=== PATIENT | female | born 1960 | race Caucasian/White ===

== ENCOUNTER 2019-08-16 08:31 | Outpatient (CLI) | payer BC, SELFPAY ==
--- NOTE | 2019-08-16 08:39 | MM_ITS ---
WS: [id number] BILATERAL SCREENING DIGITAL MAMMOGRAM WITH CAD HISTORY: SCREENING COMPARISON: 05/26/2018 and 05/16/2017 Bilateral CC and MLO views submitted. Computer aided detection analyzed. Breast composition: There are scattered areas of fibroglandular density. No suspicious masses, microc alcifications or architectural distortion. Benign calcification in the inferior medial LEFT breast. MM/[id number] IMPRESSION: BI-RADS: 2-Benign FOLLOW UP: 1 Year Follow-up
== END 2019-08-16 08:32 | disposition home or self-care (01) ==
LOC: RADSHAW 08:37
PROVIDERS: PCP Family Medicine; Visit Provider Family Medicine
DX: Z12.31 Encounter for screening mammogram for malignant neoplasm of breast (principal)
CPT/HCPCS: 77067

== ENCOUNTER 2019-11-07 09:38 | Outpatient (CLI) | payer OTHER, BC, SELFPAY ==
--- NOTE | 2019-11-07 09:56 | XR_ITS ---
WS: [id number] RIGHT SHOULDER: 3 VIEW(S) TECHNIQUE: Internal and external rotation with Y view. HISTORY: PAIN IN SHOULDER COMPARISON: None available. No fracture or dislocation or soft tissue abnormality. Large calcific or osseous density adjacent to the medial proximal humerus measures 2.3 x 1.3 cm. This may be contiguous with an osteophyte from the medial inferior humeral head. Differential includes lo ose body in the joint. There is osteophytic ridging and hypertrophic bone formation around the david l head. Mild narrowing of the glenohumeral joint. Mild subchondral cystic changes in the distal clavi will. XR/XR shoulder RT min 2V* [id number] IMPRESSION: 1. Large osteophyte versus loose body in the axillary pouch measuring 2.3 x 1. 3 cm. 2. Mild hypertrophic bone formation over the humeral head with mild narrowing of the glenohumeral joint.
--- NOTE | 2019-11-07 09:56 | XR_ITS ---
WS: [id number] LEFT SHOULDER: 3 VIEW(S) TECHNIQUE: Internal and external rotation with Y view. HISTORY: PAIN IN SHOULDER COMPARISON: None available. No fracture or dislocation or soft tissue abnormality. Moderate narrowing of the glenohumeral joint. There is a large osteophyte from the medial inferior hu meral head measuring 2.6 x 1.3 cm. Osteophytic ridging around the humeral head with osteopenia. Mild narrowing of the AC joint. XR/XR shoulder LT min 2V* [id number] IMPRESSION: Significant hypertrophic bone formation involving the medial humeral head with narrowing of the glenohumeral joint.
== END 2019-11-07 09:39 | disposition home or self-care (01) ==
PROVIDERS: PCP Family Medicine; Visit Provider Family Medicine
DX: M25.511 Pain in right shoulder (principal); M25.512 Pain in left shoulder
CPT/HCPCS: 73030

== ENCOUNTER 2020-09-17 14:20 | Outpatient (CLI) | payer BC, SELFPAY ==
--- NOTE | 2020-09-17 14:28 | MM_ITS ---
WS: [id number] SCREENING DIGITAL MAMMOGRAM WITH CAD HISTORY: SCREENING COMPARISON: 08/16/2019 and 05/26/2018 Bilateral CC and MLO views submitted. Computer aided detection analyzed. Breast composition: There are scattered areas of fibroglandular density. No suspicious masses, microc alcifications or architectural distortion. Benign calcifications LEFT breast. MM/[place] [id number] IMPRESSION: BI-RADS: 2-Benign FOLLOW UP: 1 Year Follow-up
== END 2020-09-17 14:21 | disposition home or self-care (01) ==
LOC: RADSHAW 14:26
PROVIDERS: PCP Family Medicine; Visit Provider Family Medicine
DX: Z12.31 Encounter for screening mammogram for malignant neoplasm of breast (principal)
CPT/HCPCS: 77067

== ENCOUNTER 2021-12-28 09:44 | Outpatient (CLI) | payer MEDICARE, SELFPAY ==
--- NOTE | 2021-12-28 09:58 | MM_ITS ---
WS: [id number] BILATERAL SCREENING DIGITAL TOMOSYNTHESIS MAMMOGRAM WITH CAD HISTORY: SCREEN COMPARISON: 09/17/2020, 08/16/2019, 05/10/2016 Bilateral CC and MLO views with tomosynthesis and synthetic mammography submitted. Computer aided det ection analyzed. Breast composition: There are scattered areas of fibroglandular density. No suspicious masses, microc alcifications or architectural distortion. Long-term stability of a nodule posterior to the RIGHT nip ple. MM/[place] [id number] IMPRESSION: BI-RADS: 2-Benign FOLLOW UP: 1 Year Follow-up
== END 2021-12-28 09:45 | disposition home or self-care (01) ==
LOC: RAD 09:45
PROVIDERS: PCP Family Medicine; Visit Provider Family Medicine
DX: Z12.31 Encounter for screening mammogram for malignant neoplasm of breast (principal)
CPT/HCPCS: 77063; 77067

== ENCOUNTER → 2022-04-28 13:04 | Outpatient (BNVA) | payer MEDICARE, SELFPAY | PROVIDERS: PCP Family Medicine; Visit Provider Orthopaedic Surgery | DX: M19.011 Primary osteoarthritis, right shoulder (principal); M19.012 Primary osteoarthritis, left shoulder; G56.02 Carpal tunnel syndrome, left upper limb | CPT/HCPCS: 73030; 99214 ==

== ENCOUNTER 2022-05-25 06:12 | Outpatient (CLI) | payer MEDICARE, SELFPAY ==
--- NOTE | 2022-05-25 06:30 | CT_ITS ---
WS: [id number] CT LEFT SHOULDER, NONCONTRAST, 3-D. HISTORY: M19.012 - Primary osteoarthritis, left shoulder Technique: All CT scans at [facility] use at least one of these dose optimization techniques: automated exposure control; mA and/or kV adjustment per patient size (includes targeted exams where dose is matched to clinical indication); or iterative reconstruction. DLP: 270.63 mGy.cm COMPARISON: 06/24/2014 and radiograph 04/28/2022 Severe glenohumeral joint space narrowing with osteophytic ridging. Hypertrophic bone formation is si gnificant surrounding the humeral head with a lesser component at the glenoid. Subchondral cystic denisa nges involve the glenoid and the humeral head. There is an osseous loose body measuring 13 mm adjacen t to the coracoid process. No fractures. Mild AC joint narrowing. No fractures or dislocation. The visualized ribs are normal. Mild supraspinatus muscle atrophy. Visualized LEFT lung is clear. CT/CT shoulder LT wo con* [id number] IMPRESSION: 1. Severe glenohumeral joint arthritis with marked osteophytic ridging. 2. 13 mm loose body adjacent to the coracoid process. 3. Mild atrophy supraspinatus muscle.
== END 2022-05-25 06:13 | disposition home or self-care (01) ==
LOC: RAD 06:16
PROVIDERS: PCP Family Medicine; Visit Provider Orthopaedic Surgery
DX: M19.012 Primary osteoarthritis, left shoulder (principal); M62.512 Muscle wasting and atrophy, not elsewhere classified, left shoulder
CPT/HCPCS: 73200

== ENCOUNTER 2022-06-14 09:39 | Outpatient (CLI) | payer MEDICARE, SELFPAY | END 2022-06-14 09:40 | disposition home or self-care (01) | LOC: RT 06-24 12:08 | PROVIDERS: PCP Family Medicine; Visit Provider Orthopaedic Surgery | DX: Z13.6 Encounter for screening for cardiovascular disorders (principal) | CPT/HCPCS: 93005 ==

== ENCOUNTER 2022-06-21 14:39 | Observation (INO) | payer MEDICARE, SELFPAY ==
--- NOTE | 2022-06-14 09:39 | ECG_ITS ---
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 Measurements Intervals [place] Rate: 71 P: 9 NM: 195 QRS: 45 QRSD: 94 T: 24 QT: 346 QTc: 378 Interpretive Statements SINUS RHYTHM NONSPECIFIC ST & T-WAVE ABNORMALITY No previous ECG available for comparison Electronically Signed On 06-14-2022 13:08:23 CDT by Edgar Trevizo M.D. [id number]
--- NOTE | 2022-06-14 10:17 | ANES.PREANE2 ---
Pre-Anesthetic Assessment Height/Weight: Height 1.65 m Weight 65.771 kg Operation Date: 06/21/22 10:15 Proposed Procedures p left total shoulder arthroplasty/ 55849,M19.012(Left) - Ish Leigh MD Familial anesthetic complications: None Social No alcohol and No tobacco Exam alert, oriented x 3, clear to auscultation bilaterally and regular rate & rhythm Airway Mallampati: Class III Dentition: other (missing) Pulmonary None reported CV/HEM Hypertension > 4 METs GI Gastroesophageal Reflux Disease Metabolic Thyroid Disease patient doesn't realize she has low thyroid - said no one ever told her that Anesthetic Plan ASA status: 2 Anesthesia: General and Regional (specify below) Risk of > 500 ml blood loss (7ml/kg in children): No Medications/Allergies Home Medications Medication Instructions Recorded Confirmed Last Taken Type amlodipine 5 mg tablet 10 mg PO DAILY 01/15/20 06/14/22 06/14/22 History bupropion HCl 300 mg 24 hr tablet, 300 mg PO QAM 01/15/20 06/14/22 06/14/22 History extended release esomeprazole magnesium 20 mg 20 mg PO DAILY 01/15/20 06/14/22 06/14/22 History capsule,delayed release (Nexium) fluoxetine 10 mg capsule 10 mg PO DAILY 01/15/20 06/14/22 06/14/22 History gabapentin 300 mg capsule 300 mg PO DAILY 01/15/20 06/14/22 06/14/22 History levothyroxine 25 mcg capsule 50 mcg PO DAILY 01/15/20 06/14/22 06/14/22 History lisinopril 40 mg tablet 40 mg PO DAILY 01/15/20 06/14/22 06/14/22 History methadone 10 mg tablet 10 mg PO DAILY 01/15/20 06/14/22 06/14/22 History metoprolol succinate 50 mg 50 mg PO DAILY 01/15/20 06/14/22 06/14/22 History tablet,extended release 24 hr morphine 30 mg immediate release 30 mg PO Q8H 01/15/20 06/14/22 06/14/22 History tablet multivitamin,iv-qyae-xuthxitr 1 tab PO DAILY 01/15/20 06/14/22 06/14/22 History (Complete Multivitamin tablet) trazodone 50 mg tablet 25 mg PO DAILY 01/15/20 06/14/22 06/14/22 History polyethylene glycol 3350 17 4 g PO DAILY 06/14/22 06/14/22 06/14/22 History gram/dose oral powder Allergies Allergy/AdvReac Type Severity Reaction Status Date / Time acetaminophen [From Vicodin] Allergy ALGY-Rash Verified 06/14/22 09:52 hydrochlorothiazide Allergy ALGY-Rash Verified 06/14/22 09:52 hydrocodone [From Vicodin] Allergy ALGY-Rash Verified 06/14/22 09:52 Penicillins Allergy ALGY-Rash Verified 06/14/22 09:52 Data Anesthesia Cardiac Studies: No Data to Display
[2022-06-14 10:50] LABS: Add Urine Microscopic? NO; Charge for UA Resulting for Rev
[2022-06-14 10:54] LABS: Bilirubin Urine Neg (Negative); Blood Urine Neg (Negative); Eosinophils # 0.1 10^3/uL (0.0-0.8); Glucose Urine UA Norm (Normal); Hematocrit 39.2 % (37.0-47.0); Hemoglobin 12.9 g/dL (11.5-15.3); Ketones Urine Negative (Negative); Leukocyte Esterase Urine Negative (Negative); Lymphocytes # 1.1 10^3/uL (0.8-4.8); Lymphocytes % 27.7 %; Mean Corpuscular HGB Conc 32.9 g/dL (30.0-36.0); Mean Corpuscular Hemoglobin 28.5 pg (28.0-34.0); Mean Corpuscular Volume 86.7 fl (81-99); Mean Platelet Volume 10.7 fL (7.4-10.4); Monocytes # 0.3 10^3/uL (0.2-0.9); Monocytes % 7.1 %; Neutrophils % 60.9 %; Nitrate Urine Negative (Negative); Nucleated Red Blood Cells % 0 %; Platelet Count 192 10^3/cmm (130-400); Protein Urine Neg (Negative); Red Blood Count 4.52 10^6/uL (4.1-5.3); Red Cell Distribution Width 13.1 % (12.1-15.1); Specific Gravity, Urine 1.015 (1.005-1.030); Urine Appearance Clear (CLEAR); Urine Color Yellow (Yellow); Urobilinogen Urine Neg (Negative); White Blood Count 3.9 10^3/uL (4.0-10.0); pH Urine 6.5 (5-7)
[2022-06-14 11:15] LABS: Alanine Aminotransferase 12 U/L (0-33); Albumin Level 4.1 g/dL (3.5-5.2); Alkaline Phosphatase 56 U/L (35-105); Anion Gap 13.1 (5-19); Aspartate Amino Transferase 19 U/L (0-32); Blood Urea Nitrogen 19 mg/dL (6-20); Calcium 8.7 mg/dL (8.5-10.5); Carbon Dioxide 27 mmol/L (22-29); Chloride 101 mmol/L (98-107); Globulin 2.4 g/dL (1.3-4.6); Glomerular Filtration Rate 64.1 mL/min (90-130); Glucose 85 mg/dL (65-115); Osmolality Calculated 286 mOsm/kg (285-295); Potassium 4.1 mmol/L (3.5-5.1); Sodium 137 mmol/L (136-145); Total Bilirubin 0.2 mg/dL (0.15-1.2); Total Protein 6.5 g/dL (6.6-8.7)
[2022-06-21] VITALS (18 sets, daily range): BP systolic 97–138; BP diastolic 66–87; PULSE 65–76; RESP 13–20; TEMP 36.1–37.1; O2SAT 92–100; BMI 24.3
[2022-06-21] MEDS: sodium chloride 0.9% 1,000 ML 30 ML IV (09:10)
[2022-06-21] MEDS: oxyCODONE 20 mg ER (12 HR) Tablet PO (09:15)
[2022-06-21] MEDS: gabapentin 300 mg Capsule PO (09:16)
[2022-06-21] MEDS: CELEcoxib 200 mg Capsule 400 MG PO (09:16)
--- NOTE | 2022-06-21 09:29 | W.PM.OPSFHP ---
Same Day Surgery H&P Indication for Procedure/HPI DATE OF PROCEDURE: June 21, 2022 CHIEF COMPLAINT/INDICATIONFOR SURGICAL PROCEDURE: Osteoarthritis left knee here for left total knee arthroplasty PREOP DIAGNOSIS: Osteoarthritis Left shoulder PLANNED PROCEDURE: Operation Date: 06/21/22 10:15 Proposed Procedures p left total shoulder arthroplasty/ 75704,M19.012(Left) - Ish Leigh MD 61 year old female patient here for left total shoulder arthroplasty. Previous treatments include formal Pt and a cortisone injection in the left shoulder, with incomplete improvement. She has pain in her right shoulder as well. She describes intermittent pain in the shoulders.? She has good days and bad days.? On some occasions the pain may be quite severe.? She describes persistent loss of motion.? She continues to manage her pain in her back and lower extremities with morphine and methadone and states this helps her shoulders as well. Medications/Allergies* Home Medications Medication Instructions Recorded Confirmed Type amlodipine 5 mg tablet 10 mg PO DAILY 01/15/20 06/14/22 History bupropion HCl 300 mg 24 hr tablet, 300 mg PO QAM 01/15/20 06/14/22 History extended release esomeprazole magnesium 20 mg 20 mg PO DAILY 01/15/20 06/14/22 History capsule,delayed release (Nexium) fluoxetine 10 mg capsule 10 mg PO DAILY 01/15/20 06/14/22 History gabapentin 300 mg capsule 300 mg PO DAILY 01/15/20 06/14/22 History levothyroxine 25 mcg capsule 50 mcg PO DAILY 01/15/20 06/14/22 History lisinopril 40 mg tablet 40 mg PO DAILY 01/15/20 06/14/22 History methadone 10 mg tablet 10 mg PO DAILY 01/15/20 06/14/22 History metoprolol succinate 50 mg 50 mg PO DAILY 01/15/20 06/14/22 History tablet,extended release 24 hr morphine 30 mg immediate release 30 mg PO Q8H 01/15/20 06/14/22 History tablet multivitamin,pe-wqyr-qtpbxkog 1 tab PO DAILY 01/15/20 06/14/22 History (Complete Multivitamin tablet) trazodone 50 mg tablet 25 mg PO DAILY 01/15/20 06/14/22 History polyethylene glycol 3350 17 4 g PO DAILY 06/14/22 06/14/22 History gram/dose oral powder Allergies/Adverse Reactions Allergy/AdvReac Type Severity Reaction Status Date / Time acetaminophen [From Vicodin] Allergy ALGY-Rash Verified 06/14/22 09:52 hydrochlorothiazide Allergy ALGY-Rash Verified 06/14/22 09:52 hydrocodone [From Vicodin] Allergy ALGY-Rash Verified 06/14/22 09:52 Penicillins Allergy ALGY-Rash Verified 06/14/22 09:52 Pertinent Exam Findings alert, oriented x 3, clear to auscultation bilaterally, regular rate & rhythm and operative site marked Left shoulder RANGE OF MOTION:? LEFT EXTREMITY ? Flexion:90 ? External Rotation:20 ? Abduction 90 ? Pain with extremes of motion Recommendations Surgery/Procedure today Coding Level of Care Code Acute Code for Chg Fwdavid
[2022-06-21] MEDS: midazolam 1 mg/mL INJ 2 mL 2 MG IVP (09:33)
--- NOTE | 2022-06-21 09:33 | ANES.PROC ---
Anesthesia Procedures Procedure/Date: 06/21/22 Nerve Block ^: Nerve Block 1: Main Anesthesia: general anesthesia Time Out Performed: Yes Consent: requested by attending/covering physician, from patient, from other, risks and benefits reviewed and patient agrees to proceed Nerve block location: interscalene (L) Anesthesia monitors applied: pulse oximetry, EKG, BP cuff and oxygen Nerve block position: semi sitting Anesthetic Used: ropivicaine 0.5% (20 ml) and with decadron (4 mg) Ultrasound used to: recognize landmarks, visualize and ID brachial plexus and visualize and ID interscalene groove Nerve Stimulator Used?: No Interscalene/Femoral BLK: 2 stimuplex 22 g needle used for position and inplane approach, visualize local anesthetic spread and no vascular puncture identified Injection: neg aspiration of heme Patient Tolerated Procedure: well Complications: none
--- NOTE | 2022-06-21 09:34 | P.ANESUD_ITS ---
Pre-Anesthetic Update Pre-Anesthetic Assessment: Date of Surgery/Procedure: 06/21/22 Preop Halina gnosis: Osteoarthritis Left shoulder Proposed Procedure: Operation Date: 06/21/22 10:15 Proposed Procedures p left total shoulder arthroplasty/ 18367,M19.012(Left) - Ish Leigh MD Any changes to Pre-Anesthetic Assessment?: No Last Intake: Intake Last Liquid Date 06/20/22 Last Liquid Time 21:00 Last Solid Date 06/20/22 Last Solid Time 21:00 Vitals: Pulse Rhythm 06/21/22 09:01 Pulse Strength 3+ Normal 06/21/22 09:01 Respiratory Rate 18 06/21/22 09:15 Respiratory Effort 06/21/22 09:15 Respiratory Depth Normal 06/21/22 09:15 Respiratory Patter n 06/21/22 09:15 Pulse Oximetry 98 06/21/22 09:15 Oxygen Delivery Me thod 06/21/22 09:01 Exam: Pre-Anes Outpt Exam: alert, oriented x 3, clear to auscultation bilaterally and regular rate & rhythm Cardiac Studies: No Data to Display
[2022-06-21] MEDS: ceFAZolin 2,000 MG in sodium chloride 0.9% (plus) 50 ML 100 MG IV ×2 (09:48→17:52)
[2022-06-21] MEDS: tranexamic acid 1,000 mg/10mL SDV 1000 MG IV (10:15)
[2022-06-21] MEDS: sodium chloride 0.9% 100 mL Bag XX (10:32)
[2022-06-21] MEDS: EPINEPHrine 1 mg/mL INJ XX (11:10)
--- NOTE | 2022-06-21 11:57 | P.OP_ITS ---
Operative Report Date of procedure: June 21, 2022 Pre-op diagnosis: Preop Diagnosis Osteoarthritis Left shoulder Post-op diagnosis: same Procedure done: Left total shoulder arthroplasty Implants: Tornier total shoulder 1) flex size 6B nucleus 2) S for humeral Head eccentric 45 mm, thickness 70 mm 3) Aequalis PerFORM cortiolc pegged glenoid medium 40 mm Pathology: none sent Surgeon: Ish Leigh Anesthesia: General and Nerve Block (Interscalene) Estimated blood loss (mL): 100 Findings: The patient had severe degenerative changes of the left shoulder with flattening of the humeral head and large inferior osteophytes. She had no significant glenoid bone loss Condition: stable Disposition: PACU Procedure: Patient was given a interscalene block in holding. The patient was taken to the operating room and was given 2 g of Ancef. He is prepped and draped in the beachchair position with his arm supported on a Arciniega stand. A timeout was performed. A 10cm incision was made just lateral to the coracoid extending distally in line with the medial deltoid border. Dissection was carried out identifying the cephalic vein in the deltopectoral interval. Dissection was accomplished manually through the interval and subacromial and lateral deltoid adhesions released by hand. A Gera soft tissue protector was placed. The biceps tendon was identified distally and traced proximally through the bi cipital groove. The subscapularis and underlying capsule were then peeled off of the lesser tuberosity. The free tendon was fixed with braided sutures in a locking fashion and the free ends secured with a hemostat. The rotator interval was then split. The shoulder then could be dislocated out of the wound. In accordance with our preoperative plan a femoral head cut was made at the level of the capsular insertions with retractors to protect the rotator cuff. Medullary bone quality was poor and decision was made to proceed with a short stem implant. Sequential reaming of the stem was accomplished up to a size 6 for adequate fill was felt. The humerus was then prepared for a 6B and the protector cover placed. Retractors were then placed around the glenoid with the humeral head being r etracted posteriorly and inferiorly. Release of the capsule was accomplished beginning anteriorly and working posteriorly around the humeral head. In accordance with the plan the central guidepin was placed. The glenoid was planed down to subchondral bone removing. The central peg hole and peripheral holes were then placed. The glenoid was irrigated removing cartilaginous remnants. Peripheral peg holes were dried with a Ray-Leonela and prepared with an epinephrine solution. Simplex P antibiotic cement was packed in each pedicle and the final glenoid component placed. Trial reduction was accomplished before settling on the 17mm thickness glenoid. The final humeral head was placed with the offset head providing increased coverage inferiorly. In the shoulder reduced. 4 drill holes were then made beginning in the bicipital groove posteriorly into the greater tuberosity. Sutures from the subscapularis were passed through these holes and the sutures were secured over a 4-hole mini plate over the greater tuberosity with excellent purchase. The rotator interval was closed laterally with a braided nylon suture. The shoulder was irrigated with saline. The deltopectoral interval was closed with interrupted 0 Vicryl suture. Subcutaneous tissues were closed with running 2-0 Stratafix. Skin edges closed with a running 4-0 Stratafix. The skin was covered with a Prineo skin glue and covered with OpSite. The patient was placed in a sling, extubated, and taken recovery room in stable condition.
--- NOTE | 2022-06-21 12:05 | XR_ITS ---
WS: [id number] EXAMINATION: XR shoulder LT min 2V* [id number] REASON FOR EXAM: Left total shoulder COMPARISON: None available. ORDER DATE: 06/21/2022 12:05 PM X-RAY FINDINGS: No fractures or dislocations. Normal motion of the shoulder with internal/external rotation. No degenerative changes total left shoulder arthroplasty in satisfactory position. Acromioclavicular joint appears unremarkable. Limited visualization of the adjacent hemithorax is unremarkable. XR/XR shoulder LT min 2V* [id number] IMPRESSION: No fractures or dislocations of the left shoulder arthroplasty.
--- NOTE | 2022-06-21 13:39 | SUR.EXTENDED ---
Report called to FILIPPO Patricio. Patient in 252-1, call light within reach. at bedside.
--- NOTE | 2022-06-21 14:10 | ANE.PACU2 ---
Inpatient post-anesthesia follow up: Airway intact: Yes Vital signs: Temperature 97.0 F Pulse Rate 68 Respiratory Rate 18 Blood Pressure 132/74 Pulse Oximetry 96 Oxygen Delivery Me thod Room Air Oxygen Flow Rate 6 Fraction of Inspir ed Oxygen Hydration adequate: Yes Nausea and vomiting: No Pain level: 1 Mental status: Baseline
[2022-06-21] MEDS: sodium chloride 0.9% 1,000 ML 80 ML IV (15:10)
[2022-06-21] MEDS: oxyCODONE 5 mg IR Tab/Cap 10 MG PO ×3 (15:11→23:06)
--- NOTE | 2022-06-21 15:45 | PC.OT ---
OT Eval Held - Patient eval held on this day until patient is more appropriate to participate in evaluation process.
[2022-06-21] MEDS: CELEcoxib 200 mg Capsule PO (17:53)
[2022-06-21] MEDS: gabapentin 300 mg Capsule 600 MG PO (17:53)
[2022-06-21] MEDS: morphine ER (12 HR) 30 mg tablet PO (20:50)
[2022-06-22] VITALS (7 sets, daily range): BP systolic 129–159; BP diastolic 71–83; PULSE 67; RESP 16–18; TEMP 37.1–37.6; O2SAT 93–94
--- NOTE | 2022-06-22 00:32 | PC.NURSE ---
PT CARE Pt care now being assumed by Bao BARKLEY
[2022-06-22] MEDS: ceFAZolin 2,000 MG in sodium chloride 0.9% (plus) 50 ML 100 MG IV ×2 (01:13→10:16)
[2022-06-22] MEDS: oxyCODONE 5 mg IR Tab/Cap 10 MG PO ×3 (02:26→10:16)
[2022-06-22] MEDS: sodium chloride 0.9% 1,000 ML 80 ML IV (03:58)
[2022-06-22] MEDS: gabapentin 300 mg Capsule PO (05:03)
[2022-06-22] MEDS: buPROPion XL (24 HR) 300 mg Tablet PO (05:03)
[2022-06-22] MEDS: morphine ER (12 HR) 30 mg tablet PO (05:03)
[2022-06-22] MEDS: morphine 4 mg/mL SDV 1 mL IVP (07:09)
[2022-06-22] MEDS: lisinopril 20 mg Tablet 40 MG PO (08:10)
[2022-06-22] MEDS: aspirin 325 mg EC Tablet PO (08:10)
[2022-06-22] MEDS: CELEcoxib 200 mg Capsule PO (08:11)
[2022-06-22] MEDS: pantoprazole DR 40 mg Tablet PO (08:11)
[2022-06-22] MEDS: levothyroxine 50 mcg Tablet PO (08:11)
[2022-06-22] MEDS: methadone 10 mg Tablet PO (08:11)
[2022-06-22] MEDS: fluoxetine 10 mg Capsule PO (08:11)
[2022-06-22] MEDS: amlodipine 5 mg Tablet 10 MG PO (08:11)
[2022-06-22] MEDS: metoprolol succinate ER (24 HR) 50 mg Tablet PO (08:11)
--- NOTE | 2022-06-22 09:31 | PM.DCS ---
Discharge Providers Date of Admission: 06/21/22 14:39 Date of Discharge: June 22, 2022 Attending Provider at Admission: Ish Freedman MD Attending Provider at Discharge: Ish Freedman MD Primary Care Provider: Adrianne Mercedes MD Diagnoses at Discharge Discharge Diagnosis (1) Status post replacement of right shoulder joint: Status: Acute (2) Osteoarthritis of right shoulder: Status: Resolved Reason for Visit Reason for Visit: 48130, M19.012 Hospital Course Hospital Course The patient tolerated surgery well. They remained hemodynamically stable. They was begun on aspirin and sequential compressive dressing for DVT prophylaxis. He was evaluated by Occupational Therapy postoperatively he did well as the pain was adequately controlled and they were fully mobile they were discharged home. We will begin outpatient physical therapy in the morning Physical Exam Narrative: On the day of discharge the patient's dressing was clean and dry. The patient's would fire his deltoid and their biceps. No distal neurovascular deficits were noted. Discharge Data Studies Completed and Pending Completed Studies During Hospitalization Category Date Time Status XR shoulder LT min 2V* [id number] Routine Exams 06/21/22 12:05 Completed Radiology Impressions Shoulder X-Ray 06/21/22 12:05 IMPRESSION: No fractures or dislocations of the left shoulder arthroplasty. Laboratory Results WBC 3.9 10^3/uL (4.0-10.0) L 06/14/22 10:15 RBC 4.52 10^6/uL (4.1-5.3) 06/14/22 10:15 Hgb 12.9 g/dL (11.5-15.3) 06/14/22 10:15 Hct 39.2 % (37.0-47.0) 06/14/22 10:15 MCV 86.7 fl (81-99) 06/14/22 10:15 MCH 28.5 pg (28.0-34.0) 06/14/22 10:15 MCHC 32.9 g/dL (30.0-36.0) 06/14/22 10:15 RDW 13.1 % (12.1-15.1) 06/14/22 10:15 Plt Count 192 10^3/cmm (130-400) 06/14/22 10:15 MPV 10.7 fL (7.4-10.4) H 06/14/22 10:15 Neut % (Auto) 60.9 % 06/14/22 10:15 Lymph % (Auto) 27.7 % 06/14/22 10:15 [place] % (Auto) 7.1 % 06/14/22 10:15 Eos % (Auto) 3.0 % 06/14/22 10:15 Baso % (Auto) 1.0 % 06/14/22 10:15 Neut # (Auto) 2.40 10^3/uL (1.8-7.7) 06/14/22 10:15 Lymph # (Auto) 1.1 10^3/uL (0.8-4.8) 06/14/22 10:15 [place] # (Auto) 0.3 10^3/uL (0.2-0.9) 06/14/22 10:15 Eos # (Auto) 0.1 10^3/uL (0.0-0.8) 06/14/22 10:15 Baso # (Auto) 0.0 10^3/uL (0.0-0.1) 06/14/22 10:15 Nucleated RBC % (auto) 0 % 06/14/22 10:15 Nucleated RBCs # 0.0 /100WBC 06/14/22 10:15 Sodium 137 mmol/L (136-145) 06/14/22 10:15 Potassium 4.1 mmol/L (3.5-5.1) 06/14/22 10:15 Chloride 101 mmol/L (98-107) 06/14/22 10:15 Carbon Dioxide 27 mmol/L (22-29) 06/14/22 10:15 Anion Gap 13.1 (5-19) 06/14/22 10:15 BUN 19 mg/dL (6-20) 06/14/22 10:15 Creatinine 0.9 mg/dL (0.5-0.9) 06/14/22 10:15 GFR Calculation 64.1 mL/min (90-130) L 06/14/22 10:15 Glucose 85 mg/dL (65-115) 06/14/22 10:15 Calculated Osmolality 286 mOsm/kg (285-295) 06/14/22 10:15 Calcium 8.7 mg/dL (8.5-10.5) 06/14/22 10:15 Total Bilirubin 0.2 mg/dL (0.15-1.2) 06/14/22 10:15 AST 19 U/L (0-32) 06/14/22 10:15 ALT 12 U/L (0-33) 06/14/22 10:15 Alkaline Phosphatase 56 U/L (35-105) 06/14/22 10:15 Total Protein 6.5 g/dL (6.6-8.7) L 06/14/22 10:15 Albumin 4.1 g/dL (3.5-5.2) 06/14/22 10:15 Globulin 2.4 g/dL (1.3-4.6) 06/14/22 10:15 Urine Color Yellow (Yellow) 06/14/22 10:15 Urine Appearance Clear (CLEAR) 06/14/22 10:15 Urine pH 6.5 (5-7) 06/14/22 10:15 Ur Specific Mcfaddin 1.015 (1.005-1.030) 06/14/22 10:15 Urine Protein Neg (Negative) 06/14/22 10:15 Urine Glucose (UA) Norm (Normal) 06/14/22 10:15 Urine Ketones Negative (Negative) 06/14/22 10:15 Urine Blood Neg (Negative) 06/14/22 10:15 Urine Nitrate Negative (Negative) 06/14/22 10:15 Urine Bilirubin Neg (Negative) 06/14/22 10:15 Urine Urobilinogen Neg mg/dL (Negative) 06/14/22 10:15 Ur Leukocyte Esterase Negative (Negative) 06/14/22 10:15 Vitals Last Vital Signs Temp 99.6 F 06/22/22 08:00 Pulse 67 06/22/22 08:00 Resp 17 06/22/22 08:09 BP 159/83 06/22/22 08:00 Pulse Ox 94 06/22/22 08:00 O2 Del Method 06/22/22 08:00 O2 Flow Rate 6 06/21/22 12:11 Discharge Plan Discharge Patient Disposition: Home Condition: Stable Prescriptions: New oxycodone 5 mg Tablet 10 mg PO Q3H PRN (Reason: Moderate Pain) 7 Days Qty: 40 0RF aspirin 325 mg Tablet,Delayed Release (Dr/Ec) 325 mg PO DAILY 30 Days Qty: 30 0RF celecoxib 200 mg Capsule 200 mg PO BID 14 Days Qty: 28 0RF Continued amlodipine 5 mg tablet 10 mg PO DAILY bupropion HCl 300 mg tablet extended release 24 hr 300 mg PO QAM esomeprazole magnesium [Nexium] 20 mg capsule,delayed release(DR/EC) 20 mg PO DAILY fluoxetine 10 mg capsule 10 mg PO DAILY gabapentin 300 mg capsule 300 mg PO DAILY levothyroxine 25 mcg capsule 50 mcg PO DAILY lisinopril 40 mg tablet 40 mg PO DAILY methadone 10 mg tablet 10 mg PO DAILY metoprolol succinate 50 mg tablet extended release 24 hr 50 mg PO DAILY morphine 30 mg tablet 30 mg PO Q8H Complete Multivitamin Tablet 1 tab PO DAILY trazodone 50 mg tablet 25 mg PO DAILY polyethylene glycol 3350 17 gram/dose Powder 4 g PO DAILY Discharge Orders: Discharge Order (Routine); Ordered 06/22/22 Ordered By: Ish Freedman Referrals: Ish Freedman MD [Physician] - 07/06/22 8:30 am Discharge Diet: Advance as tolerated Discharge Activity: Limit activity as instructed Patient Instructions: Opioid Safety Activity Restrictions/Additional Instructions: Okay to shower. No soaking incision in tub May remove dressing tomorrow or come into clinic if needed vector control assistant Apply FirstIce up to 20 min/hr for pain and swelling Take Celebrex twice a day for the next 15 days for pain , discontinue other anti-inflammatories Continue regular pain medicine regimen take oxycodone for breakthrough pain. Again physical therapy tomorrow as scheduled IF HAVE ANY PROBLEMS OR QUESTIONS CALL [facility] AT AND ASK TO HAVE DR. FREEDMAN PAGED. Discharge Attestations Time Spent in Discharge Care*: other Quality Metrics Clinical Quality Measures [ No reported AMI, CVA or VTE this stay] Coding Level of Care Code Acute Code for Chg Fwd Diagnoses Status post replacement of right shoulder joint Z96.611 Osteoarthritis of right shoulder M19.011
--- NOTE | 2022-06-22 10:08 | PC.CHAP ---
Pastoral Care Encounter/Spiritual Assessment Type of Contact [] Declined clockmaker apprentice visit [] Patient/Family/Request visit [] Outpatient visit [] Follow-up visit [] Physician referral [] Code/Alert [x] Routine visit [] Staff referral [] Actively dying [] Patient sleeping [x] Family support [] [] Out of room [] Palliative care [] [] Receiving care in room [] Pre-surgical visit [] Trauma [] Long length of stay [] ICU visit [] Other: Relational/Emotional Strength [x] Patient feels connected with others/family/visitors/staff [] Distress [] Loneliness/isolation [] Abandonment Spirituality of Patient [x] Person of Georgette [] Attends Jehovah'S Witness of their Georgette [x] Believes in Prayer [] Reads Bible or Adventist materials [] There are Spiritual issues to be addressed Documentation Coordinator Interventions [x] Prayer [x] Active listening [] Non-anxious presence [x] Spiritual/emotional support [] Crisis/trauma care [] Spiritual counseling [] Bereavement support [] Provided bereavement packet [] Provided Bible/devotional materials [] Provided toy/stuffed animal, coloring book to patient or family member [] Provided Communion [] Anointing/Alva [] Salvation [x] Completed spiritual assessment [] Other: Impact on Illness or Injury [] Angry [] Fearful [] Anxious [] Often cries [] Exhaustion [] Unable to work [] Unable to attend sabianist [] Unable to walk/stand [] Unable to read [] Unable to drive [] Unable to eat/drink [] Unable to sleep [] Unable to be with family [] Patient intubated [] Other: Summary Time spent with patient 5 min
== END 2022-06-22 12:15 | disposition home or self-care (01) ==
LOC: MEDSURG 14:40
PROVIDERS: Admitting Provider Orthopaedic Surgery; PCP Family Medicine; Visit Provider Orthopaedic Surgery
PROC: (CPT 23472; principal; 2022-06-21 09:45)
DX: M19.012 Primary osteoarthritis, left shoulder (principal); M25.712 Osteophyte, left shoulder; I10 Essential (primary) hypertension; K21.9 Gastro-esophageal reflux disease without esophagitis; E07.9 Disorder of thyroid, unspecified; Z88.0 Allergy status to penicillin
CPT/HCPCS: 23472; 73030; 80053; 81003; 85025; 97165; C1713; C1776; G0378; J0171; J0690; J1100; J1200; J1580; J2250; J2270; J2405; J2704; J2795; J3010; J3490; J7030

== ENCOUNTER → 2022-07-06 08:32 | Outpatient (BNVA) | payer MEDICARE, SELFPAY | PROVIDERS: PCP Family Medicine; Visit Provider Orthopaedic Surgery | DX: Z47.89 Encounter for other orthopedic aftercare (principal); Z96.612 Presence of left artificial shoulder joint | CPT/HCPCS: 99024 ==

== ENCOUNTER → 2022-07-27 10:07 | Outpatient (BNVA) | payer MEDICARE, SELFPAY | PROVIDERS: PCP Family Medicine; Visit Provider Surgery | DX: Z12.11 Encounter for screening for malignant neoplasm of colon (principal) | CPT/HCPCS: 99024; 99203 ==

== ENCOUNTER → 2022-08-03 08:49 | Outpatient (BNVA) | payer MEDICARE, SELFPAY | PROVIDERS: PCP Family Medicine; Visit Provider Orthopaedic Surgery | DX: Z96.612 Presence of left artificial shoulder joint (principal) | CPT/HCPCS: 73030; 99024 ==

== ENCOUNTER 2022-08-06 07:57 | Day surgery (SDC) | payer MEDICARE, SELFPAY ==
[2022-08-04 12:13] VITALS: BMI 22.6
[2022-08-06 08:18] VITALS: BP 138/114; PULSE 77; RESP 16; TEMP 36.4; O2SAT 100
[2022-08-06] MEDS: sodium chloride 0.9% 1,000 ML 30 ML IV (08:21)
--- NOTE | 2022-08-06 08:54 | ANES.PREANE2 ---
Pre-Anesthetic Assessment Height/Weight: Height 1.63 m Weight 59.874 kg Temp Pulse Resp BP Pulse Ox O2 Del Method 97.6 F 77 16 138/114 100 Room Air 08/06/22 08:18 08/06/22 08:18 08/06/22 08:18 08/06/22 08:18 08/06/22 08:18 08/06/22 08:18 Operation Date: 08/06/22 09:30 Proposed Procedures p Colonoscopy 52502,Z12.11(Not Applicable) - Jose G Henley DO Familial anesthetic complications: none Was Beta Vianey taken within 24 hours: N/A Was Clonidine taken within 24 hours: N/A Last intake: Intake Last Liquid Date 08/05/22 Last Liquid Time 22:00 Last Solid Date 08/04/22 Last Solid Time 20:00 Social No alcohol and No tobacco Exam alert and oriented x 3 Airway Submandibular: within normal limits Cervical ROM: within normal limits Mallampati: Class I Dentition: full History/ROS No significant history except as noted Pulmonary None reported CV/HEM Hypertension None reported Hepatic None reported GI Gastroesophageal Reflux Disease Metabolic None reported Musc/skel None reported Neuropsych None reported CRPS- walks with a cane Anesthetic Plan ASA status: 2 Anesthesia: Anesthesia Evaluation, General and MAC Risk of > 500 ml blood loss (7ml/kg in children): No Medications/Allergies Home Medications Medication Instructions Recorded Confirmed Last Taken Type amlodipine 5 mg tablet 10 mg PO DAILY 01/15/20 08/06/22 08/06/22 History bupropion HCl 300 mg 24 hr tablet, 300 mg PO QAM 01/15/20 08/06/22 08/06/22 History extended release esomeprazole magnesium 20 mg 20 mg PO DAILY 01/15/20 08/06/22 08/05/22 History capsule,delayed release (Nexium) fluoxetine 10 mg capsule 10 mg PO DAILY 01/15/20 08/06/22 08/06/22 History gabapentin 300 mg capsule 300 mg PO DAILY 01/15/20 08/06/22 08/06/22 History levothyroxine 25 mcg capsule 50 mcg PO DAILY 01/15/20 08/06/22 08/06/22 History lisinopril 40 mg tablet 40 mg PO DAILY 01/15/20 08/06/22 08/06/22 History methadone 10 mg tablet 10 mg PO DAILY 01/15/20 08/06/22 08/06/22 History metoprolol succinate 50 mg 50 mg PO DAILY 01/15/20 08/06/22 08/06/22 History tablet,extended release 24 hr morphine 30 mg immediate release 30 mg PO Q8H 01/15/20 08/06/22 08/06/22 History tablet multivitamin,pw-gwib-dbuzylpk 1 tab PO DAILY 01/15/20 08/06/22 08/05/22 History (Complete Multivitamin tablet) trazodone 50 mg tablet 25 mg PO DAILY 01/15/20 08/06/22 08/05/22 History polyethylene glycol 3350 17 4 g PO DAILY 06/14/22 08/06/22 08/05/22 History gram/dose oral powder Allergies Allergy/AdvReac Type Severity Reaction Status Date / Time acetaminophen [From Vicodin] Allergy ALGY-Rash Verified 08/06/22 08:24 hydrochlorothiazide Allergy ALGY-Rash Verified 08/06/22 08:24 hydrocodone [From Vicodin] Allergy ALGY-Rash Verified 08/06/22 08:24 Penicillins Allergy ALGY-Rash Verified 08/06/22 08:24 Current Medications Generic Name Dose Route Start Last Admin Trade Name Freq PRN Reason Stop Dose Admin Sodium Chloride 1,000 mls @ 30 mls/hr 08/06/22 08:15 08/06/22 08:21 Sodium Chloride 0.9% IV 08/07/22 08:14 30 mls/hr .Q24H GIA Administration Data Anesthesia Cardiac Studies: No Data to Display
--- NOTE | 2022-08-06 09:16 | W.PM.OPSUD ---
Surgery/Procedure H&P Update DATE OF PROCEDURE: August 06, 2022 DATE H&P PERFORMED: 07/27/22 H&P UPDATE INFORMATION: I have reviewed H&P completed within last 30 days, I have examined patient prior to procedure and No changes to prior documentation PLANNED PROCEDURE: Operation Date: 08/06/22 09:30 Proposed Procedures p Colonoscopy 01598,Z12.11(Not Applicable) - Jose G Henley, DO
[2022-08-06 10:24] VITALS: BP 102/64; PULSE 67; RESP 18; O2SAT 97
[2022-08-06 10:38] VITALS: BP 112/75; PULSE 65; RESP 16; O2SAT 95
--- NOTE | 2022-08-06 14:21 | ANE.PACU2 ---
Inpatient post-anesthesia follow up: Airway intact: Yes Vital signs: Temperature 97.6 F Pulse Rate 65 Respiratory Rate 16 Blood Pressure 112/75 Pulse Oximetry 95 Oxygen Delivery Me thod Room Air Oxygen Flow Rate Fraction of Inspir ed Oxygen Hydration adequate: Yes Nausea and vomiting: No Pain level: 2 Mental status: Baseline
== END 2022-08-06 10:53 | disposition home or self-care (01) ==
PROVIDERS: PCP Family Medicine; Visit Provider Surgery
PROC: 0DJD8ZZ Inspection of Lower Intestinal Tract, Via Natural or Artificial Opening Endoscopic (ICD-10-PCS; CPT 45378; principal; 2022-08-06 09:30)
DX: Z12.11 Encounter for screening for malignant neoplasm of colon (principal); Z86.010 Personal history of colon polyps; I10 Essential (primary) hypertension; K21.9 Gastro-esophageal reflux disease without esophagitis; Z87.891 Personal history of nicotine dependence
CPT/HCPCS: G0121; J2704; J7030

== ENCOUNTER → 2022-08-31 09:08 | Outpatient (BNVA) | payer MEDICARE, SELFPAY | PROVIDERS: PCP Family Medicine; Visit Provider Orthopaedic Surgery | DX: Z96.612 Presence of left artificial shoulder joint (principal) | CPT/HCPCS: 99024 ==

== ENCOUNTER → 2022-10-15 09:23 | Outpatient (BNVA) | payer MEDICARE, SELFPAY | PROVIDERS: PCP Family Medicine; Visit Provider Nurse Practitioner Family | DX: Z96.612 Presence of left artificial shoulder joint (principal) | CPT/HCPCS: 73030; 99213 ==

== ENCOUNTER 2023-02-02 10:18 | Outpatient (CLI) | payer MEDICARE, SELFPAY ==
--- NOTE | 2023-02-02 10:30 | MM_ITS ---
WS: [id number] BILATERAL SCREENING DIGITAL TOMOSYNTHESIS MAMMOGRAM WITH CAD HISTORY: SCREENING COMPARISON: 12/28/2021, 09/17/2020 Bilateral CC and MLO views with tomosynthesis and synthetic mammography submitted. Computer aided det ection analyzed. Breast composition: There are scattered areas of fibroglandular density. No suspicious masses, microc alcifications or architectural distortion. Benign calcification LEFT breast. IMPRESSION: MM/[place] [id number] BI-RADS: 2-Benign FOLLOW UP: 1 Year Follow-up
== END 2023-02-02 10:19 | disposition home or self-care (01) ==
LOC: MOBLMAM 10:27
PROVIDERS: PCP Family Medicine; Visit Provider Family Medicine
DX: Z12.31 Encounter for screening mammogram for malignant neoplasm of breast (principal)
CPT/HCPCS: 77063; 77067

== ENCOUNTER 2024-02-07 12:12 | Outpatient (CLI) | payer MEDICARE, SELFPAY ==
--- NOTE | 2024-02-07 12:20 | XRR_ITS ---
PROCEDURE INFORMATION: Exam: XR Chest Exam date and time: 02/07/2024 12:30 PM Age: 63 years old Clinical indication: Cough; Additional info: Chronic cough. No history of recent trauma or surgery is provided. TECHNIQUE: Imaging protocol: Radiologic exam of the chest. 2image(s) are provided. Views: 2 views. COMPARISON: 1. CR XR shoulder LT min 2V* [id number] 10/15/2022 9:23 AM. No previous chest radiograph is currently otherwise available. 2. CR XR shoulder RT min 2V* [id number] 04/28/2022 1:04 PM FINDINGS: Tubes, catheters and devices: There is maintained overall alignment appearance of the left shoulder prosthetic hardware. Lungs: No lobar consolidation is appreciated. There is some chronic air trapping appearance overall with some increased lung volumes. There are some densities and could represent some granulomatous related change with some bronchovascular type averaging. Pleural spaces: No pneumothorax or significant pleural effusion is appreciated. Heart/Mediastinum: The cardiomediastinal silhouette is within normal. No cardiac decompensation is appreciated. Diaphragm: The hemidiaphragms are symmetric. Bones/joints: No displaced fracture or dislocation is appreciated. There is some spinal wire stimulator type appearance inferiorly. Soft tissues: No radiopaque foreign body or subcutaneous emphysema is appreciated. There is some soft tissue type calcification about the right shoulder soft tissues similar overall. XR/XR chest 2V* [id number] IMPRESSION: There appears to be some mild air trapping related change with no lobar consolidation or cardiac decompensation appreciated. If there are persistent clinical findings of chronic cough then consider non contrasted CT chest for overall further detail evaluation.
== END 2024-02-07 12:13 | disposition home or self-care (01) ==
LOC: RAD 12:15
PROVIDERS: PCP Family Medicine; Visit Provider Family Medicine
DX: R05.3 Chronic cough (principal)
CPT/HCPCS: 71046

== ENCOUNTER 2024-04-05 10:37 | Outpatient (CLI) | payer MEDICARE, SELFPAY ==
--- NOTE | 2024-04-05 10:40 | MM_ITS ---
WS: [id number] BILATERAL SCREENING DIGITAL TOMOSYNTHESIS MAMMOGRAM WITH CAD HISTORY: SCREENING COMPARISON: 02/02/2023, 12/28/2021 Bilateral CC and MLO views with tomosynthesis and synthetic mammography submitted. Computer aided det ection analyzed. Quality of this examination is compromised by motion artifact. Breast composition: There are scattered areas of fibroglandular density. No suspicious masses, microc alcifications or architectural distortion. Benign calcification medial LEFT breast. MM/MM scr BI tomosynthesis [id number] IMPRESSION: BI-RADS: 2 - Benign. FOLLOW UP: 1 Year Follow-up Quality of this examination is compromised by motion artifact.
== END 2024-04-05 10:38 | disposition home or self-care (01) ==
LOC: MOBLMAM 10:42
PROVIDERS: PCP Family Medicine; Visit Provider Family Medicine
DX: Z12.31 Encounter for screening mammogram for malignant neoplasm of breast (principal); R92.323 Mammographic fibroglandular density, bilateral breasts; R92.1 Mammographic calcification found on diagnostic imaging of breast
CPT/HCPCS: 77063; 77067

== ENCOUNTER 2024-06-28 11:10 | Emergency (ER) | payer MEDICARE, SELFPAY ==
[2024-06-28 11:16] VITALS: BP 112/67; PULSE 93; RESP 16; TEMP 36.6; O2SAT 100; BMI 22.4
--- NOTE | 2024-06-28 12:36 | XR_ITS ---
WS: [id number] Acute abdomen series, 06/28/2024 Clinical Data: abdominal pain Comparison: 2 view chest, 02/07/2024 Findings: In the chest there are no nodules, masses or effusions. The heart is normal. The pulmonary vascularity is not increased. The aortic arch and descending thoracic aorta show tortuosity. Epidural stimulator leads end in the lower thoracic epidural space. There is osteoarthritis of the right glenohumeral joint and a left shoulder arthroplasty. No free air is seen beneath the diaphragms. No abnormal intra-abdominal masses or calcifications are seen. There is a large amount of fecal material throughout the colon. Epidural stimulator wires end in the lower thoracic epidural space. There are surgical clips in the true pelvis. XR/XR acute abdomen series 08611 Impression: 1. Atherosclerosis. 2. Large amount of fecal material in the colon.
--- NOTE | 2024-06-28 12:40 | W.ED.ABDPA2 ---
HPI - Abdominal Pain General: Chief Complaint: Abdominal Pain Stated Complaint: Rhina sent for blockage Time Seen by Provider: 06/28/24 12:36 History of Present Illness: 63-year-old female with a history of depression, hypertension and hypothyroidism who presents the emergency room from clinic. I talked with her primary care provider who notes that she seemed a little bit more confused than normal. States she had not had a normal bowel movement in several days. Had had some bloody scant drainage from her rectum but otherwise no stools. She does have issues with constipation in the past. She is having some tenderness in her left lower quadrant. PCP was concerned that she seemed more confused than usual. Initially she does a little bit but by the end of the stay she seems much less confused. No focal motor deficits. No chest pain. No fevers. Related Data Home Medications ?Medication ?Instructions ?Recorded ?Confirmed bupropion HCl 300 mg 24 hr tablet, 300 mg PO QAM 01/15/20 06/28/24 extended release fluoxetine 10 mg capsule 10 mg PO DAILY 01/15/20 06/28/24 metoprolol succinate 50 mg 50 mg PO DAILY 01/15/20 06/28/24 tablet,extended release 24 hr morphine 30 mg immediate release 30 mg PO Q8H 01/15/20 06/28/24 tablet trazodone 50 mg tablet 25 mg PO DAILY 01/15/20 06/28/24 amlodipine 10 mg tablet 10 mg PO DAILY 06/28/24 06/28/24 hydrocortisone acetate 25 mg 25 mg NE BID 06/28/24 06/28/24 rectal suppository levothyroxine 50 mcg tablet 50 mcg PO DAILY 06/28/24 06/28/24 Previous Rx's ?Medication ?Instructions ?Recorded ciprofloxacin HCl 500 mg tablet 500 mg PO BID 10 days #20 tabs 06/28/24 dexamethasone 6 mg tablet 6 mg PO DAILY 5 days #5 tabs 06/28/24 diclofenac sodium 50 mg 50 mg PO BID PRN pain #14 tabs 06/28/24 tablet,delayed release glycerin (adult) 1 supp NE DAILY PRN constipation 06/28/24 #12 ea metronidazole 500 mg tablet 500 mg PO Q8H 10 days #30 tabs 06/28/24 ondansetron 4 mg disintegrating 4 mg PO Q8H PRN nausea and 06/28/24 tablet vomiting #10 tabs polyethylene glycol 3350 17 17 g PO DAILY #510 grams 06/28/24 gram/dose oral powder (Miralax) Allergies Allergy/AdvReac Type Severity Reaction Status Date / Time acetaminophen (From Vicodin) Allergy ALGY-Rash Verified 06/28/24 11:22 hydrochlorothiazide Allergy ALGY-Rash Verified 06/28/24 11:22 hydrocodone (From Vicodin) Allergy ALGY-Rash Verified 06/28/24 11:22 Penicillins Allergy ALGY-Rash Verified 06/28/24 11:22 Review of Systems Narrative: Constitutional symptoms: Negative except as documented in HPI. Skin symptoms: Negative except as documented in HPI. Eye symptoms: Negative except as documented in HPI. ENMT symptoms: Negative except as documented in HPI. Respiratory symptoms: Negative except as documented in HPI. Cardiovascular symptoms: Negative except as documented in HPI. Gastrointestinal symptoms: Negative except as documented in HPI. Genitourinary symptoms: Negative except as documented in HPI. Musculoskeletal symptoms: Negative except as documented in HPI. Neurologic symptoms: Negative except as documented in HPI. Psychiatric symptoms: Negative except as documented in HPI. Endocrine symptoms: Negative except as documented in HPI. Physical Exam Narrative: EXAM NARRATIVE: General: Alert, no acute distress. Skin: Warm, dry. Head: Normocephalic, atraumatic. Neck: Supple, trachea midline. Eye: Extraocular movements are intact. Ears, nose, mouth and throat: Tacky oral mucosa Cardiovascular: Regular, Normal peripheral perfusion. Respiratory: Lungs are clear to auscultation, respirations are non-labored, breath sounds are equal, Symmetrical chest wall expansion. Gastrointestinal: Soft, moderate left lower quadrant tenderness to palpation, Non distended Musculoskeletal: Normal ROM, no deformity. Neurological: Alert and oriented, No focal neurological deficit observed. Psychiatric: Cooperative, appropriate mood & affect. Course Vital Signs: Vital signs: Vital Signs Temperature 97.8 F 06/28/24 11:16 Pulse Rate 93 06/28/24 11:16 Respiratory Rate 16 06/28/24 11:16 Blood Pressure 112/67 06/28/24 11:16 Pulse Oximetry 100 06/28/24 11:16 Oxygen Delivery Me thod Room Air 06/28/24 11:16 MDM - Abdominal Pain Medical Decision Making Medical decision making: Differential diagnosis including but not limited to and based on the above HPI, review of systems and physical exam: - patient with complaint of constipation: Small bowel obstruction. Gastroparesis. Constipation. Also evaluation for urinary retention, liver disease, renal failure. Orders placed to evaluate differential diagnosis based on the above differential, HPI and physical exam Lab Review: Laboratory results were reviewed and interpreted by myself the emergency room physician. No leukocytosis. No anemia. No renal failure. Urinalysis is negative for infection. Lactate is negative, which is important given the ischemic bowel is in the differential and the CT scan which would make this less likely. CT of the abdomen pelvis with contrast: Long segment circumferential edema and mucosal enhancement involving the colon and the splenic fracture to the rectum. This is consistent with her exam where she is tender. If you like this is likely an inflammatory process related to her chronic constipation but given her acute tenderness and they are concerned that this might be inflammatory versus infectious I am treating her for both. Lactate is negative so likely not ischemia. I reviewed the patient's medical record. Reexamination: Patient remained stable. No increased work of breathing. No altered mental status. No focal motor deficits. Patient's mentation seems much improved. She was given an enema. Mag citrate. IV antibiotics and IV steroids here in the emergency room. Also IV pain medications and nausea medications. Assessment and plan: Colitis Dehydration Constipation Mild encephalopathy ? IV normal saline bolus, IV morphine, IV Zofran, IV Solu-Medrol, IV Cipro and IV Flagyl ?Enema and mag citrate in the emergency room as well. - Discharged home - Discussed plan with patient. Answered any questions. - Evaluation and treatment of this problem were appropriate in the emergency setting. Lab Data 06/28/24 12:47 06/28/24 12:47 Labs/Radiology: Radiology Impressions Chest/Abdomen X-ray 06/28/24 12:36 Impression: 1. Atherosclerosis. 2. Large amount of fecal material in the colon. Abdomen/Pelvis CT 06/28/24 13:30 IMPRESSION: 1. Study is significantly compromised by motion artifact. 2. Long segment circumferential edema and mucosal enhancement involving the colon beginning at the splenic flexure to the rectum. No pneumatosis. This is most consistent with an infectious process. Ischemia may appear similar. 3. Remaining colon demonstrates fecal retention and constipation. 4. Atherosclerosis aorta. Visualized mesenteric arteries are limited by motion. 5. No renal obstruction. Laboratory Results WBC 6.37 10^3/uL (3.29-11.43) 06/28/24 12:47 RBC 3.90 10^6/uL (3.85-5.65) 06/28/24 12:47 Hgb 11.20 g/dL (11.27-16.99) L 06/28/24 12:47 Hct 34.0 % (36-47) L 06/28/24 12:47 MCV 87.2 fl (85-98) 06/28/24 12:47 MCH 28.7 pg (27-33) 06/28/24 12:47 MCHC 32.9 g/dL (30-55) 06/28/24 12:47 RDW 13.7 % (12.1-15.1) 06/28/24 12:47 Plt Count 320 10^3/cmm (157-399) 06/28/24 12:47 MPV 10.0 fL (7.4-10.4) 06/28/24 12:47 Neut % (Auto) 63.7 % 06/28/24 12:47 Lymph % (Auto) 15.5 % 06/28/24 12:47 [place] % (Auto) 16.2 % 06/28/24 12:47 Eos % (Auto) 3.5 % 06/28/24 12:47 Baso % (Auto) 0.8 % 06/28/24 12:47 Neut # (Auto) 4.06 10^3/uL (1.8-7.7) 06/28/24 12:47 Lymph # (Auto) 1.0 10^3/uL (0.8-4.8) 06/28/24 12:47 [place] # (Auto) 1.0 10^3/uL (0.2-0.9) H 06/28/24 12:47 Eos # (Auto) 0.2 10^3/uL (0.0-0.8) 06/28/24 12:47 Baso # (Auto) 0.1 10^3/uL (0.0-0.1) 06/28/24 12:47 Nucleated RBC % (auto) 0 % 06/28/24 12:47 Nucleated RBCs # 0.0 /100WBC 06/28/24 12:47 Sodium 134 mmol/L (136-145) L 06/28/24 12:47 Potassium 4.1 mmol/L (3.5-5.1) 06/28/24 12:47 Chloride 99 mmol/L (98-107) 06/28/24 12:47 Carbon Dioxide 21 mmol/L (22-29) L 06/28/24 12:47 Anion Gap 18.1 (5-19) 06/28/24 12:47 BUN 11 mg/dL (8-23) 06/28/24 12:47 Creatinine 0.7 mg/dL (0.5-0.9) 06/28/24 12:47 GFR Calculation 85.1 mL/min (90-130) L 06/28/24 12:47 Glucose 87 mg/dL (65-115) 06/28/24 12:47 Calculated Osmolality 277 mOsm/kg (285-295) L 06/28/24 12:47 Lactic Acid 0.7 mmol/L (0.5-2.2) 06/28/24 12:47 Calcium 8.2 mg/dL (8.5-10.5) L 06/28/24 12:47 Total Bilirubin 0.2 mg/dL (0.15-1.2) 06/28/24 12:47 AST 16 U/L (0-32) 06/28/24 12:47 ALT 10 U/L (0-33) 06/28/24 12:47 Alkaline Phosphatase 70 U/L (35-105) 06/28/24 12:47 Total Protein 6.5 g/dL (6.6-8.7) L 06/28/24 12:47 Albumin 3.1 g/dL (3.5-5.2) L 06/28/24 12:47 Globulin 3.4 g/dL (1.3-4.6) 06/28/24 12:47 Urine Color Dark yellow (Yellow) A 06/28/24 13:19 Urine Appearance Turbid (CLEAR) A 06/28/24 13:19 Urine pH 5.5 (5-7) 06/28/24 13:19 Ur Specific [place] 1.034 (1.005-1.030) H 06/28/24 13:19 Urine Protein 1+ (Negative) A 06/28/24 13:19 Urine Glucose (UA) Negative (Normal) 06/28/24 13:19 Urine Ketones 1+ (Negative) H 06/28/24 13:19 Urine Blood Negative (Negative) 06/28/24 13:19 Urine Nitrate Negative (Negative) 06/28/24 13:19 Urine Bilirubin Negative (Negative) 06/28/24 13:19 Urine Urobilinogen 1.0 mg/dL (Negative) 06/28/24 13:19 Ur Leukocyte Esterase Trace (Negative) A 06/28/24 13:19 Urine RBC 11-20 /hpf (0-2) H 06/28/24 13:19 Urine WBC 0-5 /hpf (0-5) 06/28/24 13:19 Ur Squamous Epith Cells 6-10 /hpf (0-5) 06/28/24 13:19 Amorphous Sediment Not Reportable 06/28/24 13:19 Urine Bacteria None seen /hpf (NONE) 06/28/24 13:19 Hyaline Casts 10.32 /lpf 06/28/24 13:19 All radiology interpretation(s) finalized by discharge Discharge Plan Discharge Patient Disposition: Home Clinical Impression: Colitis, Constipation, Dehydration Condition: Stable Prescriptions: New dexamethasone 6 mg tablet 6 mg PO DAILY 5 Days Qty: 5 0RF metronidazole 500 mg tablet 500 mg PO Q8H 10 Days Qty: 30 0RF ciprofloxacin HCl 500 mg tablet 500 mg PO BID 10 Days Qty: 20 0RF diclofenac sodium 50 mg tablet,delayed release (DR/EC) 50 mg PO BID PRN (Reason: pain) Qty: 14 0RF polyethylene glycol 3350 [Miralax] 17 gram/dose powder 17 g PO DAILY Qty: 510 0RF Rx Instructions: Take 1-2 scoops daily for the next 3 months to keep stools soft ondansetron 4 mg tablet,disintegrating 4 mg PO Q8H PRN (Reason: nausea and vomiting) Qty: 10 0RF glycerin (adult) Suppository 1 supp NE DAILY PRN (Reason: constipation) Qty: 12 0RF No Action bupropion HCl 300 mg tablet extended release 24 hr 300 mg PO QAM fluoxetine 10 mg capsule 10 mg PO DAILY metoprolol succinate 50 mg tablet extended release 24 hr 50 mg PO DAILY morphine 30 mg tablet 30 mg PO Q8H trazodone 50 mg tablet 25 mg PO DAILY hydrocortisone acetate 25 mg suppository 25 mg NE BID amlodipine 10 mg tablet 10 mg PO DAILY levothyroxine 50 mcg tablet 50 mcg PO DAILY Discharge Orders: Discharge ED (Routine); Ordered 06/28/24 Ordered By: Lilliam Arriaga Referrals: Adrianne Mercedes MD [Primary Care Provider] - Discharge Diet: Advance as tolerated Discharge Activity: Increase activity as tolerated Patient Instructions: Constipation (ED), Colitis (ED), Opioid Safety, Pain Management Activity Restrictions/Additional Instructions: Thank you for choosing [facility] for your healthcare needs today. Please realize this is an emergency room and that we are providing you with a medical screening exam and this may not be complete and all inclusive of all the testing and or work up that you may need to determine your ailment or severity of your illness. You have been screened and evaluated and felt safe for discharge. Health conditions do change or evolve sometimes and as such it is important that you follow up with your Primary Doctor to be re checked, 3-5 days is a general good time frame for follow up. You are always welcome to return to the ED for re assessment if your symptoms are worsening or you have new concerns Print Language: Belarusian Coding Level of Care Code ED Building Supervisor for Maria Luz Hernandez
[2024-06-28 13:02] LABS: Basophils # 0.1 10^3/uL (0.0-0.1); Basophils % 0.8 %; Eosinophils # 0.2 10^3/uL (0.0-0.8); Eosinophils % 3.5 %; Lymphocytes % 15.5 %; Mean Corpuscular HGB Conc 32.9 g/dL (30-55); Mean Corpuscular Hemoglobin 28.7 pg (27-33); Mean Corpuscular Volume 87.2 fl (85-98); Monocytes % 16.2 %; Neutrophils # 4.06 10^3/uL (1.8-7.7); Neutrophils % 63.7 %; Nucleated Red Blood Cells % 0 %; Platelet Count 320 10^3/cmm (157-399); Red Cell Distribution Width 13.7 % (12.1-15.1); White Blood Count 6.37 10^3/uL (3.29-11.43)
[2024-06-28 13:19] LABS: Alanine Aminotransferase 10 U/L (0-33); Albumin Level 3.1 g/dL (3.5-5.2); Alkaline Phosphatase 70 U/L (35-105); Anion Gap 18.1 (5-19); Aspartate Amino Transferase 16 U/L (0-32); Blood Urea Nitrogen 11 mg/dL (8-23); Calcium 8.2 mg/dL (8.5-10.5); Carbon Dioxide 21 mmol/L (22-29); Chloride 99 mmol/L (98-107); Creatinine Clr Calc Pharmacy 75.3951; Globulin 3.4 g/dL (1.3-4.6); Glomerular Filtration Rate 85.1 mL/min (90-130); Glucose 87 mg/dL (65-115); Osmolality Calculated 277 mOsm/kg (285-295); Potassium 4.1 mmol/L (3.5-5.1); Sodium 134 mmol/L (136-145); Total Bilirubin 0.2 mg/dL (0.15-1.2); Total Protein 6.5 g/dL (6.6-8.7)
[2024-06-28 13:20] LABS: Lactic Sepsis W/Reflex 0.7 mmol/L (0.5-2.2)
[2024-06-28 13:29] LABS: Bilirubin Urine Negative (Negative); Blood Urine Negative (Negative); Glucose Urine UA Negative (Normal); Ketones Urine 1+ (Negative); Leukocyte Esterase Urine Trace (Negative); Nitrate Urine Negative (Negative); Protein Urine 1+ (Negative); Urine Appearance Turbid (CLEAR); Urine Color Dark Yellow (Yellow); pH Urine 5.5 (5-7)
--- NOTE | 2024-06-28 13:30 | CT_ITS ---
WS: [id number] CT ABDOMEN AND PELVIS WITH CONTRAST HISTORY: Abdominal pain, constipation for 6 days. Hematuria with nausea. TECHNIQUE: Imaging performed of the abdomen and pelvis with IV contrast. Single phase imaging of the abdomen. Coronal and sagittal reformats are submitted. All CT scans at [facility] use at least one of these dose optimization techniques: automated exposure control; mA and/or kV adjustment per patient size (includes targeted exams where dose is matched to clinical indication); or iterative reconstruction. IV CONTRAST: Omnipaque 350; 100 mL IV. Oral contrast: No DLP: 377.72 mGy.cm COMPARISON: None available. Lower thorax: Motion artifact at the lung bases. Heart is normal size. No hiatal hernia. Liver/biliary system: Normal size with no intrahepatic dilatation. Gallbladder: Normal. No gallstones or wall thickening. No pericholecystic fluid. Pancreas: Poorly visualized. Spleen: Limited visualization due to motion. Adrenal glands: Poorly visualized. Right kidney: No obstruction. Left kidney: No obstruction. Aorta: Mild atherosclerosis with no aneurysm. Lymphadenopathy: None. Free fluid: None. GI tract: No GI tract obstruction. Study is significantly compromised and limited by motion artifact. There is significant fecal retention throughout the colon. Beginning in the splenic flexure there is circumferential wall thickening with submucosal enhancement and narrowing of the lumen. This extends over a long segment. Progression of mucosal enhancement towards the sigmoid to the level of the rectum. No pneumatosis. Abdominal wall: Unremarkable abdominal wall. No hernia. Pelvis: Prior hysterectomy. No free fluid or adenopathy identified. Bones: L4 anterolisthesis by [address]/CT abdomen pelvis w con* [id number] IMPRESSION: 1. Study is significantly compromised by motion artifact. 2. Long segment circumferential edema and mucosal enhancement involving the co chas beginning at the splenic flexure to the rectum. No pneumatosis. This is mos t consistent with an infectious process. Ischemia may appear similar. 3. Remaining colon demonstrates fecal retention and constipation. 4. Atherosclerosis aorta. Visualized mesenteric arteries are limited by motion . 5. No renal obstruction.
[2024-06-28 13:34] LABS: Bacteria Urine None Seen /hpf; Hyaline Casts Urine 10.32 /lpf; WBC Urine 0-5 /hpf (0-5)
[2024-06-28 13:38] LABS: Add Urine Culture? No; Specific Gravity, Urine 1.034 (1.005-1.030); UA Slide Review UA Slide Review Perf
[2024-06-28] MEDS: iohexol 350 mg/mL 500 mL Btl (per mL) IV (13:58)
[2024-06-28] MEDS: sodium chloride 0.9% 1,000 ML 999 ML IV (15:41)
[2024-06-28] MEDS: metroNIDAZOLE 500 MG Tablet PO (15:45)
[2024-06-28] MEDS: ondansetron 2 mg/ML SDV 2 mL 4 MG IVP (15:47)
[2024-06-28] MEDS: methylPREDNISolone sod succ 125 mg/2 mL INJ IVP (15:51)
[2024-06-28 15:55] VITALS: RESP 18; O2SAT 97
[2024-06-28] MEDS: morphine 4 mg/mL SDV 1 mL IVP (15:55)
[2024-06-28] MEDS: magnesium citrate Btl 296 mL PO (15:56)
[2024-06-28] MEDS: ciprofloxacin 400 MG/200 ML PREMIX 200 MG IV (16:01)
[2024-06-28] MEDS: mineral oil ENEMA 133 mL PR (16:02)
[2024-06-28 18:20] VITALS: BP 107/70; PULSE 84; O2SAT 93
[2024-06-28] MEDS: peg /e-lyte soln 4,000 mL Btl 4000 ML PO (18:22)
== END 2024-06-28 18:21 | disposition home or self-care (01) ==
PROVIDERS: Emergency Provider Emergency Medicine; PCP Family Medicine
DX: K52.9 Noninfective gastroenteritis and colitis, unspecified (principal); K59.00 Constipation, unspecified; E86.0 Dehydration
CPT/HCPCS: 36415; 74022; 74177; 80053; 81001; 83605; 85025; 87040; 96361; 96374; 96375; 99285; J0744; J2270; J2405; J2919; J7030; J9999

== ENCOUNTER 2024-07-29 10:59 | Inpatient (IN) | payer MEDICARE, SELFPAY ==
--- OUTSIDE RECORDS SUMMARY | 2023-07-26 10:33 | XMS_ITS ---
Author Organization [facility] Address [address] [place] [address] Care Team Providers Care Deckhand Crab Boat Name Role Phone Adrianne Mercedes MD Primary Care Provider Ish Morrissey [phone] Allergies Allergen (clinical drug ingredient) Drug/Non Drug Allergy documented on EMR Reaction Allergy Type Onset Date Status codeine Codeine Unknown Drug Allergy Active Penicillin Unknown Drug Allergy Active REASON FOR VISIT Chart up date Medications Medication SIG (Take, Route, Frequency, Duration) Notes Start Date End Date Status Methadone HCl 10 MG 1 tablet Orally Once a day Active Morphine Sulfate 30 MG 1 tablet as neede d Orally every 4 hrs Active Metoprolol Succinate 50 MG 1 capsule Ora lly Once a day Active traZODone HCl 50 MG 1 tablet at bedtime as needed Orally Once a day Active NexIUM 20 MG 1 capsule Orally twi ce a day Active GaviLAX Active Fluoxetine Active Levothyroxine Sodium 50 MCG 1 tablet in the morning on an empty stomach Orally Once a day Active buPROPion HCl Active amLODIPine Benzoate Active buPROPion HCl Not-[facility] Encounters Encounter Location Date Provider Diagnosis [facility] [address] [place] [address], [place] [address] 07/26/2023 Ish Leigh Plan Of Treatment No Information Progress Notes * Minda LASSITEROB:1960 (62 yo F)Acc No.[id number]:07/26/2023 Patient: Amena RAPHAEL :1960 A ge:62 Y S ex:Female Address:[address] [place] [address] [address] [place], [address] Subjective: * Chief Complaints: * C hodge up date * ROS: N egative except as stated in HPI. . * Medical History: * Surgical History: l eft shoulder 06/2022left knee 08/1997spinal cord surgery 10/1999 * Hospitalization/Major Diagno stic Procedure: s ee surgical * Family History: F ather: alive 91 yrs, high blood pressure. M other: alive 89 yrs, breast cancer, colon cancer. * Social History: D rugs/Alcohol: D o you drink alcohol?: Yes - liquor 2to3 times a week. * Medications: T akingamLODIPine Benzoate buPROPion HCl Fluoxetine GaviLAX Levothyroxine Sodium 50 MCG Tablet 1 tablet in the morning on an empty stomach Orally Once a day Methadone HCl 10 MG Tablet 1 tablet Orally Once a day Metoprolol Succinate 50 MG Capsule ER 24 Hour Sprinkle 1 capsule Orally Once a day Morphine Sulfate 30 MG Tablet 1 tablet as needed Orally every 4 hrs NexIUM 20 MG Capsule Delayed Release 1 capsule Orally twice a day traZODone HCl 50 MG Tablet 1 tablet at bedtime as needed Orally Once a day Taking amLODIPine Benzoate Taking buPROPion HCl Taking Fluoxetine Taking GaviLAX Taking Levothyroxine Sodium 50 MCG Tablet 1 tablet in the morning on an empty stomach Orally Once a day Taking Methadone HCl 10 MG Tablet 1 tablet Orally Once a day Taking Metoprolol Succinate 50 MG Capsule ER 24 Hour Sprinkle 1 capsule Orally Once a day Taking Morphine Sulfate 30 MG Tablet 1 tablet as needed Orally every 4 hrs Taking NexIUM 20 MG Capsule Delayed Release 1 capsule Orally twice a day Taking traZODone HCl 50 MG Tablet 1 tablet at bedtime as needed Orally Once a day Not- TakingbuPROPion HCl Medication List reviewed and reconciled with the patientNot-Taking buPROPion HCl Medication List reviewed and reconciled with the patient * Allergies: P enicillinCodeineno[Allergies Verified] Objective: * Vitals: * Physical Examination: Assessment: Plan: * Treatment: * Procedure Codes: * true * Date: Generated for Jaqueline nelson/Анна/Mimi on: 0 07/29/2024 10:53 PM T
--- OUTSIDE RECORDS SUMMARY | 2023-08-22 05:30 | XMS_ITS ---
Author Organization [facility] Address [address] [place] [address] Care Team Providers Care Financial Aid Administrator Name Role Phone Adrianne Mercedes MD Primary Care Provider Ish Morrissey [phone] Allergies Allergen (clinical drug ingredient) Drug/Non Drug Allergy documented on EMR Reaction Allergy Type Onset Date Status codeine Codeine Unknown Drug Allergy Active Penicillin Unknown Drug Allergy Active REASON FOR VISIT LT SHOULDER Medications Medication SIG (Take, Route, Frequency, Duration) Notes Start Date End Date Status Metoprolol Succinate 50 MG 1 capsule Ora lly Once a day Active NexIUM 20 MG 1 capsule Orally twi ce a day Active Morphine Sulfate 30 MG 1 tablet as neede d Orally every 4 hrs Active buPROPion HCl Not-Ta reddy traZODone HCl 50 MG 1 tablet at bedtime as needed Orally Once a day Active buPROPion HCl Active GaviLAX Active Fluoxetine Active Methadone HCl 10 MG 1 tablet Orally Once a day Active Levothyroxine Sodium 50 MCG 1 tablet in the morning on an empty stomach Orally Once a day Active amLODIPine Benzoate Active Vital Signs Blood pressure systolic 130 mm Hg 08/22/19 24 Blood pressure diastolic 80 mm Hg 024 Heart Rate 66 /min 08/22/2023 Weight 152.56 lbs 08/22/2023 Oximetry 95 % 08/22/2023 Weight-kg 69.2 kg 08/22/2023 Encounters Encounter Location Date Provider Diagnosis [facility] [address] [place] [address] 08/22/2023 Ish Leigh Left shoulder pain, unspecified chronicity M25.512 Assessments Encounter Date Diagnosis (ICD Code) Assessment Notes Treatment Notes Treatment Clinical Notes Section Notes 08/22/2023 Left shoulder pain, unspecified chronicity (ICD-10 - M25.512) I see no evidence of specific internal derangement within the left shoulder. She has a strong rotator cuff and no suggestion of loosening. She is doing much better.She is a bit more active. I recommended yearly follow-up. I will see her back on an as-needed basis. Plan Of Treatment Pending Test Test Name Order Date X-RAY EXAM OF SHOULDER-[id number] 08/22/2023 Progress Notes * Minda LASSITEROB:1960 (63 yo F)Acc No.[id number]:08/22/2023 Progress Notes Patient: Amena RAPHAEL Provider: Jackie Leigh MD :1960 A ge:63 Y S ex:Female Date:08/22/2023 Address:[address] [place], [place] [id number] Pcp:Adrianne Mercedes MD Check In:10:45 AM CSTCheck O ut:12:03 PM WARRANTY COORDINATOR Subjective: * Chief Complaints: * L T SHOULDER * HPI: Halley naidu Note: Amena is seen after a left total shoulder arthroplasty. She reports that a week ago Tuesday she was reaching behind to tucking her shirt and developed severe pain in her shoulder with persisted over the following day. She states over the 2 weeks it has improved. She overall is doing very well and never had any shoulder pain and this is of some concern to her. * ROS: N egative except as stated in HPI. . * Medical History: * Surgical History: l eft shoulder 06/2022left knee 08/1997spinal cord surgery 10/1999 * Hospitalization/Major Diagno stic Procedure: s ee surgical * Family History: F ather: alive 91 yrs, high blood pressure. M other: alive 89 yrs, breast cancer, colon cancer. * Medications: T akingamLODIPine Benzoate buPROPion HCl [...] Allergies: P enicillinCodeineno[Allergies Verified] Objective: * Vitals: W t:152.56lbs, Wt-k.2 kg, BP:130/80mm Hg, HR:66/min, Oxygen sat %:95%, O2 Source: ra. * Examination: G eneral Examination: T ramon I can flex Amena's left shoulder to 150 degrees extend rotate her 60 degrees and she can internally rotate to T12. She has excellent rotator cuff strength. She has a negative belly press test. Halley barnett X-Ray Interpretation: 3 views of the left shoulder are ordered and personally interpreted. I see no evidence of component loosening. Her humeral head is concentrically reduced in her glenoid. Radiographic Impression: Normal postop radiographs total shoulder arthroplasty. Assessment: * Assessment: 1. L eft shoulder pain, unspecified chronicity - M25.512 (Primary) I see no evidence of specifi c internal derangement within the left shoulder. She has a strong rotator cuff and no suggestion of loosening. She is doing much better.She is a bit more active. I recommended yearly follow-up. I will see her back on an as-needed basis. Plan: * Treatment: * Procedure Codes: 7 3030 X-RAY EXAM OF SHOULDER, Modifiers: LT 3075F SYST BP GE 130 - 139MM [id number] DIAST BP 80-89 MM HG * Billing Information: * Visit Code: 64904 Office Visit, Est Pt., Level 2. * Procedure Codes: 39544 X-RAY EXAM OF SHOULDER. Modifiers: LT 3075F SYST BP GE 130 - 139MM HG. 3079F DIAST BP 80-89 MM HG. Care Plan Details* * Sign off status: Completed true * Provider: Jackie Leigh MD Date: 08/22/2023 Generated for Jaqueline nelson/Анна/Lindaitting on: 0 07/29/2024 10:53 PM CDT History and Physical Notes * HPI (History of Present Illness) Category Sub-Category Detail Notes Category Not es Provider Note Amena is seen after a left total shoulder arthroplasty. She reports that a week ago Tuesday she was reaching behind to tucking her shirt and developed severe pain in her shoulder with persisted over the following day. She states over the 2 weeks it has improved. She overall is doing very well and never had any shoulder pain and this is of some concern to her Examination Category Sub-Category Detail Notes Category Not es General Examination Today I can flex Amena's left shoulder to 150 degrees extend rotate her 60 degrees and she can internally rotate to T12. She has excellent rotator cuff strength. She has a negative belly press test. Plain X-Ray Interpretation 3 views of the left shoulder are ordered and personally interpreted. I see no evidence of component loosening. Her humeral head is concentrically reduced in her glenoid. Radiographic Impression: Normal postop radiographs total shoulder arthroplasty
--- OUTSIDE RECORDS SUMMARY | 2024-01-27 05:10 | XMS_ITS ---
Author Organization [facility] Address [address] [place] [address] Care Team Providers Care Metal Sander And Finisher Name Role Phone Adrianne Mercedes MD Primary Care Provider Ish Morrissey Unavailable [phone] Allergies Allergen (clinical drug ingredient) Drug/Non Drug Allergy documented on EMR Reaction Allergy Type Onset Date Status codeine Codeine Unknown Drug Allergy Active Penicillin Unknown Drug Allergy Active REASON FOR VISIT RT SHOULDER Medications Medication SIG (Take, Route, Frequency, Duration) Notes Start Date End Date Status traZODone HCl 50 MG 1 tablet at bedtime as needed Orally Once a day Active buPROPion HCl Not-Ta reddy Metoprolol Succinate 50 MG 1 capsule Ora lly Once a day Active Morphine Sulfate 30 MG 1 tablet as neede d Orally every 4 hrs Active NexIUM 20 MG 1 capsule Orally twi ce a day Active GaviLAX Active Levothyroxine Sodium 50 MCG 1 tablet in the morning on an empty stomach Orally Once a day Active Methadone HCl 10 MG 1 tablet Orally Once a day Active buPROPion HCl Active Fluoxetine Active amLODIPine Benzoate Active Problems Problem Type SNOMED Code ICD Code Onset Dates Problem Status W/U Status Risk Notes Problem [id number] Primary osteoarthritis of right shoulder (M19.011) Active confirmed Vital Signs Blood pressure systolic 122 mm Hg 01/27/20 24 Blood pressure diastolic 68 mm Hg 024 Heart Rate 82 /min 01/27/2024 Oximetry 96 % 01/27/2024 Encounters Encounter Location Date Provider Diagnosis [facility] [address] [place] [address] 01/27/2024 Ish Reese Primary osteoarthrit is of right shoulder M19.011 Assessments Encounter Date Diagnosis (ICD Code) Assessment Notes Treatment Notes Treatment Clinical Notes Section Notes 01/27/2024 Primary osteoarthritis of right shoulder (ICD-10 - M19.011) Amena did wel l with the last corticosteroid injection. She had over 6 months of improvement. This certainly would be reasonable to do again. Plan Of Treatment No Information Medications Administered Medication Instructions Date of Administration Dosage Notes Lidocaine 01/27/2024 2 mL Right shoulder Joint BUPivacaine HCl 01/27/2024 2 mL Right Lenora ulder Joint DEPO-Medrol 01/27/2024 Right Shoulde r Joint Progress Notes * Minda LASSITEROB:1960 (63 yo F)Acc No.[id number]:01/27/2024 Progress Notes Patient: Amena RAPHAEL Provider: Jackie Leigh MD :1960 A ge:63 Y S ex:Female Date:01/27/2024 Address:[address] [place], [place] [phone] Pcp:Adrianne Mercedes MD Check In:09:05 AM CSTCheck O ut:11:50 AM INTERNAL SALES ENGINEER Subjective: * Chief Complaints: * R T SHOULDER * HPI: P elysia Note: Amena is followed for osteoarthritis of the right shoulder. She received her last injection in June and at 6 months of very good improvement. * Medical History: * Surgical History: l [...] Orally Once a day Not- TakingbuPROPion HCl Not-Taking buPROPion HCl * Allergies: P enicillinCodeineno[Allergies Verified] Objective: * Vitals: B P:122/68mm Hg, HR:82/min, Oxygen sat %:96%. * Examination: G eneral Examination: T ramon I can flex her to 90 degrees and externally rotate her 30 degrees. She has pain with all extremes of motion. Assessment: * Assessment: 1. P rimary osteoarthritis of right shoulder - M19.011 (Primary) Amena did well with the last corticosteroid injection. She had over 6 months of improvement. This certainly would be reasonable to do again. Plan: * Treatment: * Procedures: A fter extensive Chloraprep cleansing, the subacrominal space of the right shoulder was injected with 1mL of DepoMedrol, 2mL of bupivacaine, and 2mL of lidocaine into one injection. 8mL of bupivacaine was wasted. No adverse reactions were noted. Band aid was put on area of injection. * Therapeutic Injections: Lidocaine/Xylocaine 1% : 2 mL (Route: Combination inj. into one route) given by Ish Leigh MD on Right Shoulder (Primary osteoarthritis of right shoulder) Bupivicaine : 2 mL (Route: Combination inj. into one route) given by Ish Leigh MD on Right Shoulder (Primary osteoarthritis of right shoulder) Depo-Medrol/Methylprednisolone per 40mg (Route: Combination inj. into one route) given by Ish Leigh MD on Right Shoulder (Primary osteoarthritis of right shoulder) * Procedure Codes: 2 0610 DRAIN/INJECT, JOINT/[id number] Lidocaine injection [id number] INJ BUPIVICAINE HYDROCHLORID 30 [id number] Injection, methylprednisolone acetate, 1 mg Forms: * Billing Information: * Visit Code: 02149 Office Visit, Est Pt., Level 2. * Procedure Codes: 06206 DRAIN/INJECT, JOINT/BURSA. J2001 Lidocaine injection. Bupivicaine. S0020 INJ BUPIVICAINE HYDROCHLORID 30 ML. J1010 Injection, methylprednisolone acetate, 1 mg. Care Plan Details* * RNAL SALES ENGINEER Sign off status: Completed true * Provider: Jackie Leigh MD Date: 1 03/28/2023 Generated for Jaqueline nelson/Анна/Aomssmitting on: 0 07/29/2024 10:53 PM CDT History and Physical Notes * HPI (History of Present Illness) Category Sub-Category Detail Notes Category Not es Provider Note Amena is follo wed for osteoarthritis of the right shoulder. She received her last injection in June and at 6 months of very good improvement Examination Category Sub-Category Detail Notes Category Not es General Examination Today I can flex her to 90 degrees and externally rotate her 30 degrees. She has pain with all extremes of motion
[2024-07-29] VITALS (22 sets, daily range): BP systolic 90–123; BP diastolic 45–79; PULSE 86–112; RESP 14–19; TEMP 36.7; O2SAT 91–100; BMI 20.5; BMI 22.4
--- NOTE | 2024-07-29 11:15 | ECG_ITS ---
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 Measurements Intervals Chloe Rate: 104 P: -49 AL: 98 QRS: 77 QRSD: 91 T: 70 QT: 355 QTc: 467 Interpretive Statements SINUS TACHYCARDIA WITH SHORT AL INTERVAL ABNORMAL RHYTHM ECG Compared to ECG 06/14/2022 09:48:50 Short AL interval now present Electronically Signed On 07-29-2024 19:56:30 CDT by Sheree Correia M.D. [email or web address]
[2024-07-29 11:38] LABS: Basophils % 0.1 %; Eosinophils % 0.3 %; Lymphocytes # 0.7 10^3/uL (0.8-4.8); Lymphocytes % 6.9 %; Mean Corpuscular HGB Conc 31.6 g/dL (30-55); Mean Corpuscular Hemoglobin 26.5 pg (27-33); Mean Corpuscular Volume 83.9 fl (85-98); Mean Platelet Volume 9.2 fL (7.4-10.4); Monocytes # 0.4 10^3/uL (0.2-0.9); Neutrophils # 9.37 10^3/uL (1.8-7.7); Neutrophils % 87.9 %; Nucleated Red Blood Cells % 0 %; Platelet Count 670 10^3/cmm (157-399); Red Blood Count 4.41 10^6/uL (3.85-5.65); Red Cell Distribution Width 15.3 % (12.1-15.1); White Blood Count 10.66 10^3/uL (3.29-11.43)
[2024-07-29] MEDS: lactated ringers 1,000 ML 999 ML IV (11:44)
--- NOTE | 2024-07-29 11:54 | W.ED.ABDPA2 ---
HPI - Abdominal Pain General: Chief Complaint: Abdominal Pain Stated Complaint: abd pain Time Seen by Provider: 07/29/24 11:18 History of Present Illness: Amena, a patient with a history of RSD and spinal cord stimulator placement, presents with persistent stomach pain. She reports experiencing this pain for a long time, with recent medical interventions including antibiotics and emergency room visits. The patient's primary complaint is stomach pain, specifically in the left lower quadrant. She notes that her appendix has been removed. Amena has experienced significant changes in her bowel habits, transitioning from constipation to frequent bowel movements with blood. She describes seeing lots of blood in her stool, which began approximately 20 days ago. The patient also reports having hemorrhoids. Amena has undergone recent weight loss, which was significant enough to be noticeable to others. She denies experiencing fevers but reports nausea and vomiting, for which she has been taking Zofran ODT. The patient appears dehydrated, which may be contributing to her overall condition. Recent healthcare interactions include visits to urgent care, emergency room visits at [facility], and previous consultations with Dr. Lantigua. A colonoscopy performed in 2022 was reportedly clean, but another colonoscopy has been recommended by a recent doctor at [facility]. The patient's spinal cord stimulator is noted to have stopped working a few years ago. Related Data Home Medications ?Medication ?Instructions ?Recorded ?Confirmed bupropion HCl 300 mg 24 hr tablet, 300 mg PO QAM 01/15/20 07/29/24 extended release fluoxetine 10 mg capsule 10 mg PO DAILY 01/15/20 07/29/24 metoprolol succinate 50 mg 50 mg PO DAILY 01/15/20 07/29/24 tablet,extended release 24 hr morphine 30 mg immediate release 30 mg PO Q8H 01/15/20 07/29/24 tablet trazodone 50 mg tablet 25 mg PO DAILY 01/15/20 07/29/24 amlodipine 10 mg tablet 10 mg PO DAILY 06/28/24 07/29/24 hydrocortisone acetate 25 mg 25 mg ND BID 06/28/24 07/29/24 rectal suppository levothyroxine 50 mcg tablet 50 mcg PO DAILY 06/28/24 07/29/24 Previous Rx's ?Medication ?Instructions ?Recorded diclofenac sodium 50 mg 50 mg PO BID PRN pain #14 tabs 06/28/24 tablet,delayed release glycerin (adult) 1 supp ND DAILY PRN constipation 06/28/24 #12 ea ondansetron 4 mg disintegrating 4 mg PO Q8H PRN nausea and 06/28/24 tablet vomiting #10 tabs polyethylene glycol 3350 17 17 g PO DAILY #510 grams 06/28/24 gram/dose oral powder (Miralax) Allergies Allergy/AdvReac Type Severity Reaction Status Date / Time acetaminophen (From Vicodin) Allergy ALGY-Rash Verified 07/29/24 10:18 hydrochlorothiazide Allergy ALGY-Rash Verified 07/29/24 10:18 hydrocodone (From Vicodin) Allergy ALGY-Rash Verified 07/29/24 10:18 Penicillins Allergy ALGY-Rash Verified 07/29/24 10:18 PFSH ED PFSH: Social History Smoking and tobacco/nicotine status: never used tobacco/nicotine Physical Exam Const: COMMON NORMALS: no acute distress, patient oriented x3, healthy appearing, alert and well nourished HENMT: COMMON NORMALS: normocephalic HEAD & SCALP: normocephalic Eye: COMMON NORMALS: EOMs intact bilaterally Neck/C-Spine: COMMON NORMALS: full ROM and supple Resp: COMMON NORMALS: normal respiratory effort, No retractions and clear to auscultation bilaterally AUSCULTATION: clear to auscultation bilaterally Cardio: COMMON NORMALS: regular rate, regular rhythm, No gallops present (Cardio) and No murmurs present (Cardio) RATE: regular rate RHYTHM: regular rhythm GI: COMMON NORMALS: Soft to palpation INSPECTION: Yes normal to inspection AUSCULTATION: Yes normoactive bowel sounds PALPATION: Yes Soft to palpation, Yes Tenderness to palpation present (GI) (throughout worse in LLQ), Yes Guarding due to palpation present (GI) and No Rebound tenderness present Extremity: GENERAL: Yes normal exam except as noted Neuro: COMMON NORMALS: patient oriented x3 SENSORIUM/ORIENTATION: Yes alert Skin: COMMON NORMALS: no rashes or lesions noted GENERAL SKIN EXAM: no rashes or lesions noted Course Vital Signs: Vital signs: Vital Signs Temperature 98.1 F 07/29/24 11:03 Pulse Rate 92 07/29/24 14:30 Respiratory Rate 16 07/29/24 11:03 Blood Pressure 116/54 07/29/24 14:30 Pulse Oximetry 95 05/18/25 14:30 Oxygen Delivery Me thod Room Air 07/29/24 14:30 MDM - Abdominal Pain Medical Decision Making 63-year-old female presents to the emergency department for evaluation of 1 month of abdominal pain. She started having hematochezia within the last couple of days. Patient was tachycardia and hypotensive upon arrival. Her laboratory evaluation showed significant thrombocytosis, elevated lactate, and acute cystitis. Patient was concerning for sepsis and she received broad-spectrum antibiotics as well as her fluid bolus. CT scan demonstrated concern for colitis, and an L1 vertebral fracture. Discussed the case with Dr. Gilmore who found a CT scan from month ago showing concern for ischemic bowel. Case then discussed with the GI team from [facility] in [place]. Their recommendation was to rule out infectious causes and then the patient would benefit from colonoscopy. They believe the ischemic bowel to be of lower concern at this time. Dr. Gilmore agreed to admit the patient. Admission was discussed with the patient and her family who are all in agreement with this plan. Lab Data 07/29/24 10:54 07/29/24 10:54 Labs/Radiology: Radiology Impressions Abdomen/Pelvis CT 07/29/24 12:07 IMPRESSION: 1. Nonspecific severe infectious or inflammatory mid to distal colitis, as described above. Findings compatible with diarrheal state. 2. Moderate proximal colonic distension with constipation 3. Fractures involving the L1 vertebral body superior endplate, as described above. Recommend MRI imaging. 4. Left lower lobe lung nodules measuring up to 3 mm. See Fleischner guideline recommendations below. 5. Left nonobstructing nephrolithiasis. 6. Chronic findings. Degenerative and postsurgical changes are demonstrated, as described above. For patients at low risk (minimal or absent history of smoking and of other known risk factors), no routine follow-up is indicated. For patients at high risk (history of smoking or of other known risk factors), consider optional CT Chest at 12 months. (Reference: Bradford) References: Bradford Guerin et al. Guidelines for Management of Incidental Pulmonary Nodules Detected on CT Images: From the Fleischner Society 2017. Radiology. 2017;284(1):228-243. ADDENDUM: 07/29/24 [id number] Addendum: This report contains findings that may be critical to patient care. Additional clinical history provided. Increasing lactate levels. Ischemic colitis is included in the differential diagnosis. The exam findings were discussed by me with Dr. Gilmore on 07/29/2024 1:47 PM CDT. The findings were acknowledged and understood. Chest X-Ray 07/29/24 12:34 IMPRESSION: 1. No evidence for an acute cardiopulmonary process. 2. Degenerative and postsurgical changes are demonstrated, as described above. Laboratory Results WBC 10.66 10^3/uL (3.29-11.43) 07/29/24 10:54 RBC 4.41 10^6/uL (3.85-5.65) 07/29/24 10:54 Hgb 11.70 g/dL (11.27-16.99) 07/29/24 10:54 Hct 37.0 % (36-47) 07/29/24 10:54 MCV 83.9 fl (85-98) L 07/29/24 10:54 MCH 26.5 pg (27-33) L 07/29/24 10:54 MCHC 31.6 g/dL (30-55) 07/29/24 10:54 RDW 15.3 % (12.1-15.1) H 07/29/24 10:54 Plt Count 670 10^3/cmm (157-399) H 07/29/24 10:54 MPV 9.2 fL (7.4-10.4) 07/29/24 10:54 Neut % (Auto) 87.9 % 07/29/24 10:54 Lymph % (Auto) 6.9 % 07/29/24 10:54 Coles % (Auto) 4.0 % 07/29/24 10:54 Eos % (Auto) 0.3 % 07/29/24 10:54 Baso % (Auto) 0.1 % 07/29/24 10:54 Neut # (Auto) 9.37 10^3/uL (1.8-7.7) H 07/29/24 10:54 Lymph # (Auto) 0.7 10^3/uL (0.8-4.8) L 07/29/24 10:54 Coles # (Auto) 0.4 10^3/uL (0.2-0.9) 07/29/24 10:54 Eos # (Auto) 0.0 10^3/uL (0.0-0.8) 07/29/24 10:54 Baso # (Auto) 0.0 10^3/uL (0.0-0.1) 07/29/24 10:54 Nucleated RBC % (auto) 0 % 07/29/24 10:54 Nucleated RBCs # 0.0 /100WBC 07/29/24 10:54 Sodium 136 mmol/L (136-145) 07/29/24 10:54 Potassium 4.4 mmol/L (3.5-5.1) 07/29/24 10:54 Chloride 90 mmol/L (98-107) L 07/29/24 10:54 Carbon Dioxide 23 mmol/L (22-29) 07/29/24 10:54 Anion Gap 27.4 (5-19) H 07/29/24 10:54 BUN 23 mg/dL (8-23) 07/29/24 10:54 Creatinine 0.7 mg/dL (0.5-0.9) 07/29/24 10:54 GFR Calculation 85.1 mL/min (90-130) L 07/29/24 10:54 Glucose 87 mg/dL (65-115) 07/29/24 10:54 Calculated Osmolality 285 mOsm/kg (285-295) 07/29/24 10:54 Lactic Acid 5.8 mmol/L (0.5-2.2) H* 07/29/24 10:54 Lactic Acid (Sepsis) 2.1 mmol/L (0.5-2.2) 07/29/24 13:56 Calcium 8.4 mg/dL (8.5-10.5) L 07/29/24 10:54 Magnesium 1.8 mg/dL (1.7-2.3) 07/29/24 10:54 Total Bilirubin 0.6 mg/dL (0.15-1.2) 07/29/24 10:54 AST 58 U/L (0-32) H 07/29/24 10:54 ALT 37 U/L (0-33) H 07/29/24 10:54 Alkaline Phosphatase 104 U/L (35-105) 07/29/24 10:54 Total Protein 6.2 g/dL (6.6-8.7) L 07/29/24 10:54 Albumin 2.4 g/dL (3.5-5.2) L 07/29/24 10:54 Globulin 3.8 g/dL (1.3-4.6) 07/29/24 10:54 Urine Color Dark yellow (Yellow) A 07/29/24 11:55 Urine Appearance Cloudy (CLEAR) A 07/29/24 11:55 Urine pH 5 (5-7) 07/29/24 11:55 Ur Specific Townsend 1.025 (1.005-1.030) 07/29/24 11:55 Urine Protein 1+ (Negative) H 07/29/24 11:55 Urine Glucose (UA) Norm (Normal) 07/29/24 11:55 Urine Ketones 3+ (Negative) H 07/29/24 11:55 Urine Blood Neg (Negative) 07/29/24 11:55 Urine Nitrate Positive (Negative) A 07/29/24 11:55 Urine Bilirubin 1+ (Negative) H 07/29/24 11:55 Urine Urobilinogen 4 mg/dL (Negative) H 07/29/24 11:55 Ur Leukocyte Esterase 1+ (Negative) H 07/29/24 11:55 Urine RBC 3-5 /hpf (0-2) 07/29/24 11:55 Urine WBC 5-10 /hpf (0-5) H 07/29/24 11:55 Ur Squamous Epith Cells 6-10 /hpf (0-5) 07/29/24 11:55 Calcium Oxalate Crystal 0-4 /hpf H 07/29/24 11:55 Amorphous Sediment Not Reportable 07/29/24 11:55 Urine Bacteria 1+ /hpf (NONE) H 07/29/24 11:55 Hyaline Casts 25-40 /lpf H 07/29/24 11:55 Coarse Granular Casts 0-4 /lpf H 07/29/24 11:55 Urine Mucus Trace /hpf 07/29/24 11:55 All radiology interpretation(s) finalized by discharge Critical Care Time Critical Care Time: Critical Care Time: Yes Total Critical Care Time: 10 Attestation: This case had a high probability of a clinically significant, sudden, or life threatening deterioration of this patient's condition which required my full and direct attention, intervention and personal management. Discharge Plan Discharge Patient Disposition: Placed in Observation Clinical Impression: Colitis Acute cystitis Qualifiers: Hematuria presence: without hematuria Qualified Code(s): N30.00 - Acute cystitis without hematuria Sepsis Qualifiers: Sepsis type: sepsis due to unspecified organism Sepsis acute organ dysfunction status: without acute organ dysfunction Qualified Code(s): A41.9 - Sepsis, unspecified organism Closed L1 vertebral fracture Qualifiers: Encounter type: initial encounter Fracture morphology: unspecified fracture morphology Qualified Code(s): S32.019A - Unspecified fracture of first lumbar vertebra, initial encounter for closed fracture Coding Level of Care Code ED [employer] for Maria Luz Hernandez
[2024-07-29 12:01] LABS: Alanine Aminotransferase 37 U/L (0-33); Albumin Level 2.4 g/dL (3.5-5.2); Alkaline Phosphatase 104 U/L (35-105); Anion Gap 27.4 (5-19); Aspartate Amino Transferase 58 U/L (0-32); Blood Urea Nitrogen 23 mg/dL (8-23); Calcium 8.4 mg/dL (8.5-10.5); Carbon Dioxide 23 mmol/L (22-29); Chloride 90 mmol/L (98-107); Creatinine Clr Calc Pharmacy 72.7357; Globulin 3.8 g/dL (1.3-4.6); Glomerular Filtration Rate 85.1 mL/min (90-130); Glucose 87 mg/dL (65-115); Magnesium 1.8 mg/dL (1.7-2.3); Osmolality Calculated 285 mOsm/kg (285-295); Potassium 4.4 mmol/L (3.5-5.1); Sodium 136 mmol/L (136-145); Total Bilirubin 0.6 mg/dL (0.15-1.2); Total Protein 6.2 g/dL (6.6-8.7)
--- NOTE | 2024-07-29 12:07 | CTR_ITS ---
PROCEDURE INFORMATION: Exam: CT Abdomen And Pelvis With Contrast Exam date and time: 07/29/2024 12:41 PM Age: 63 years old Clinical indication: Abdominal pain; Generalized; Additional info: Diffuse abdominal pain TECHNIQUE: Imaging protocol: Computed tomography of the abdomen and pelvis with contrast. Radiation optimization: All CT scans at this facility use at least one of these dose optimization techniques: automated exposure control; mA and/or kV adjustment per patient size (includes targeted exams where dose is matched to clinical indication); or iterative reconstruction. Contrast material: OMNI 350; Contrast volume: 80 ml; Contrast route: INTRAVENOUS (IV); COMPARISON: CT abdomen pelvis w con* [id number] 06/28/2024 1:53 PM RADIATION DOSE METRICS: Total DLP (mGy-cm): 335.36 FINDINGS: Tubes, catheters and devices: Stimulator electronic device overlies the left abdomen pelvis region. Distal epidural stimulator leads overlies the lower thoracic and upper lumbar spine regions. Lungs: Noncalcified incidental lung nodules identified. Lung nodules measurement and location: Left lower lobe lung nodules measure up to 3 mm. Liver: Liver appears heterogeneous. Possible hepatic parenchymal disease. Consider correlation with liver function tests. Gallbladder and biliary ducts: Unremarkable. No calcified stones. No ductal dilation. Pancreas: Unremarkable. Spleen: Incidental calcifications noted within the spleen, compatible with old granulomatous disease. Adrenal glands: Normal. No mass. Kidneys and ureters: Left nephrolithiasis is demonstrated. Calculus measurement and location: 4-5 mm upper pole left renal calculus. The visualized kidneys appear otherwise unremarkable. No visualized renal hydronephrosis. No visualized obstructing ureteral calculus. Stomach and bowel: Stomach and small bowel appear unremarkable. Nonspecific severe infectious or inflammatory colitis is demonstrated within the mid to distal colon. Mid to distal colonic moderate to severe wall thickening with adjacent edema is demonstrated within transverse colon, left colon, sigmoid colon and rectum. No extraluminal gas or well defined abscess identified. Fluid within the distal colon and rectum with air-fluid levels suggesting diarrheal state. The cecum, right colon and proximal transverse colon is distended with prominent fecal material suggesting moderate constipation in the proximal colon. No evidence for pneumatosis intestinalis. Appendix: The appendix appears to have been surgically removed. Surgical clips identified, most compatible with appendectomy. Intraperitoneal space: See Stomach and bowel finding. Vasculature: Calcifications in the pelvis, most compatible with phleboliths. No portal venous air identified. Mild atherosclerotic calcification demonstrated within the aorta. Mild atherosclerotic arterial vascular wall calcifications are demonstrated. Lymph nodes: No enlarged lymph nodes. Urinary bladder: Urinary bladder appears small in size, limiting further assessment. Reproductive: Unremarkable as visualized. Bones/joints: Grade 1 anterior spondylolisthesis is demonstrated at L4-L5 level, measuring 2-3 mm. Fractures are identified within the L1 vertebral body superior endplate. [id number] loss of height. Acute fracture lines identified. Mild bony retropulsion with mild central canal narrowing. Mild adjacent edema. Slight kyphosis at this level.. Moderate to severe generalized bony degenerative changes. Moderate to severe bony degenerative changes involving the posterior facet articulations of the lower lumbar spine and lumbar sacral junction. Disc and osteophyte complexes with mild to moderate central canal and foraminal narrowing within the lower lumbar spine and lumbar sacral junction. Bony structures appear otherwise unremarkable. Soft tissues: Unremarkable. Other findings: Limited study with motion artifact. CT/CT abdomen pelvis w con* [id number] IMPRESSION: 1. Nonspecific severe infectious or inflammatory mid to distal colitis, as described above. Findings compatible with diarrheal state. 2. Moderate proximal colonic distension with constipation 3. Fractures involving the L1 vertebral body superior endplate, as described above. Recommend MRI imaging. 4. Left lower lobe lung nodules measuring up to 3 mm. See Fleischner guideline recommendations below. 5. Left nonobstructing nephrolithiasis. 6. Chronic findings. Degenerative and postsurgical changes are demonstrated, as described above. For patients at low risk (minimal or absent history of smoking and of other known risk factors), no routine follow-up is indicated. For patients at high risk (history of smoking or of other known risk factors), consider optional CT Chest at 12 months. (Reference: Bradford) References: Bradford Guerin, et al. Guidelines for Management of Incidental Pulmonary Nodules Detected on CT Images: From the Fleischner Society 2017. Radiology. 2017;284(1):228-243.
[2024-07-29 12:18] LABS: Glucose Urine UA Norm (Normal); Protein Urine 1+ (Negative); Specific Gravity, Urine 1.025 (1.005-1.030); Urine Appearance Cloudy (CLEAR); Urine Color Dark Yellow (Yellow); pH Urine 5 (5-7)
[2024-07-29 12:19] LABS: Add Urine Microscopic? YES; Bacteria Urine 1+ /hpf; Bilirubin Urine 1+ (Negative); Blood Urine Neg (Negative); Calcium Oxalate Crystals Urine 0-4 /hpf; Coarse Granular Casts Urine 0-4 /lpf; Hyaline Casts Urine 25-40 /lpf; Ketones Urine 3+ (Negative); Leukocyte Esterase Urine 1+ (Negative); Mucus Urine TRACE /hpf; Nitrate Urine Positive (Negative); UA Manual Slide Review YES; Urobilinogen Urine 4 mg/dL (Negative)
[2024-07-29 12:20] LABS: Add Urine Culture? Yes
[2024-07-29 12:20] LABS: Lactic Sepsis W/Reflex 5.8 mmol/L (0.5-2.2)
[2024-07-29 12:31] LABS: Reflex Lactate Order REFLEX LACTIC ORDERD
--- NOTE | 2024-07-29 12:34 | XRR_ITS ---
PROCEDURE INFORMATION: Exam: XR Chest Exam date and time: 07/29/2024 12:36 PM Age: 63 years old Clinical indication: Other: Check for possible sepsis TECHNIQUE: Imaging protocol: Radiologic exam of the chest. Views: 1 view. COMPARISON: CR XR chest 2V* [id number] 02/07/2024 12:30 PM FINDINGS: Tubes, catheters and devices: Distal epidural stimulator leads overlies the lower thoracic spine region. Lungs: The lungs appear clear. Pleural spaces: No pleural effusion. No pneumothorax. Heart/Mediastinum: Mediastinum and efrain appear unremarkable. Bones/joints: Diffusely decreased bone density. Moderate to severe generalized bony degenerative changes. Metallic hardware identified in the left shoulder region. XR/XR chest 1V portable [id number] IMPRESSION: 1. No evidence for an acute cardiopulmonary process. 2. Degenerative and postsurgical changes are demonstrated, as described above.
[2024-07-29] MEDS: iohexol 350 mg/mL 500 mL Btl (per mL) IV (12:47)
[2024-07-29] MEDS: cefepime 2,000 mg SDV 2000 MG IVP (13:08)
[2024-07-29] MEDS: sodium chloride 0.9% 1,632.93 ML 1632.93 ML IV (13:14)
[2024-07-29] MEDS: ondansetron 2 mg/ML SDV 2 mL 4 MG IVP ×2 (13:48→16:41)
[2024-07-29] MEDS: HYDROmorphone 0.5 MG/0.5 ML INJ 1 MG IVP ×2 (13:49→20:15)
[2024-07-29 14:18] LABS: Lactic Acid level (Lactate) 2.1 mmol/L (0.5-2.2)
--- NOTE | 2024-07-29 15:25 | PM.HP ---
Providers/Chief Complaint Admitting Physician: Verna Gilmore MD Primary Care Provider: Adrianne Mercedes MD Chief Complaint: abd pain History of Present Illness Amena Gimenez is a 63 year old female who is brought to the emergency room today with chief complaints of abdominal pain. Patient states she first developed abdominal pain about 2 months ago over the left side of her abdomen. She came into the emergency room on June 28, 2024 with these complaints and was noted to have left-sided colitis for which she received treatment with ciprofloxacin and metronidazole for 10 days alongside a short course of 5 days for dexamethasone for possibility of immune colitis. She states that this does not significantly improve her symptoms. Thereafter she went on to develop diarrhea which has been ongoing for several days at this point. She is nauseous and unable to tolerate any p.o. intake. Her sister reports she has lost over 20 pounds since the onset of symptoms. CT of the abdomen and pelvis taken today shows mid to distal colonic moderate to severe wall thickening with adjacent edema within the transverse colon, left colon and sigmoid colon and rectum. There is no extraluminal gas or well-defined abscess. There is fluid in the distal colon and rectum with air-fluid levels suggesting a diarrheal state. Findings were discussed with the [facility] radiologist who said that a diagnosis of infectious or inflammatory colitis is favored. While ischemic colitis cannot be ruled out, it is considered to be less likely given the extent of involvement which would not typically be seen in ischemic colitis given multiple arteries supplying at least the distal colon. SMA was noted to be grossly patent. In reviewing the CT from June 2024, it had been reported that there was a long segment circumferential edema and mucosal enhancement involving the colon beginning at the splenic flexure to the rectum. At that time it was thought to be related to infectious versus an ischemic process. Patient denies eating out or having any other change in her diet prior to onset of symptoms No history of camping. She drinks only bottled water. Source of water supply in her house is the [employer] supply. She has not traveled internationally or anywhere locally. There are no exotic pets in her home. She has 2 cats. Does not consume any unpasteurized products. No noted fever Review of system is positive for rectal bleeding intermittently which she describes as bright red blood mixed with diarrheal stools. States that the stool looked almost watery. She denies any fever. It appears patient has been ordered for a hydrocortisone suppository due to suspicion for hemorrhoids in the past. There is no known history of colon cancer. Patient's last colonoscopy was performed at [facility] in 2022 and did not show any obvious abnormalities on August 06, 2022. There is no personal or family history of inflammatory bowel disease. Review of Systems General: Reports: 10 or more systems reviewed and unremarkable except in HPI and below Const: Denies: fever(s), chills or body aches Eyes: Denies: change in vision, blurry vision or photophobia ENMT: Reports: hoarseness; Denies: throat pain, enlarged tonsils, odynophagia or nasal congestion Card: Denies: chest pain, palpitations, irregular heart rhythm, edema, swelling of feet/ankles, lightheadedness, pre-syncope, dyspnea on exertion or orthopnea Resp: Denies: dyspnea, productive cough, non-productive cough, wheezing, stridor, pain on inspiration, change in phlegm color, hemoptysis or chest congestion GI: Denies: abdominal pain, nausea, vomiting, hematemesis, coffee ground emesis, dysphagia, heartburn, diarrhea, constipation, GI cramping, change in stool character, hematochezia or melena : Denies: flank pain, difficulty voiding, dysuria, urinary frequency, urinary urgency, urinary hesitancy or hematuria Musc: Denies: neck pain, back pain, extremity pain, joint swelling, joint warmth or deformity Neuro: Denies: headache(s), numbness in extremities, weakness in extremities, sensory changes, difficulty walking, frequent falls, dizziness, vertigo, behavioral changes, Slurred speech present or seizure-like activity Psych: Denies: anxiety, depression, suicidal ideation or homicidal ideation Endo: Denies: polyuria, polydipsia, tired all the time, cold intolerance or hot flashes Charbel/Lymph: Denies: easy bruising or easy bleeding Medications/Allergies Home Medications ?Medication ?Instructions ?Recorded ?Confirmed ?Last Taken ?Type bupropion HCl 300 mg 24 hr tablet, 300 mg PO QAM 01/15/20 07/29/24 06/28/24 History extended release fluoxetine 10 mg capsule 10 mg PO DAILY 01/15/20 07/29/24 06/28/24 History metoprolol succinate 50 mg 50 mg PO DAILY 01/15/20 07/29/24 06/28/24 History tablet,extended release 24 hr morphine 30 mg immediate release 30 mg PO Q8H 01/15/20 07/29/24 06/28/24 History tablet trazodone 50 mg tablet 25 mg PO DAILY 01/15/20 07/29/24 08/05/22 History amlodipine 10 mg tablet 10 mg PO DAILY 06/28/24 07/29/24 06/28/24 History diclofenac sodium 50 mg 50 mg PO BID PRN pain #14 tabs 06/28/24 07/29/24 Unknown Rx tablet,delayed release glycerin (adult) 1 supp UT DAILY PRN constipation 06/28/24 07/29/24 Unknown Rx #12 ea hydrocortisone acetate 25 mg 25 mg UT BID 06/28/24 07/29/24 Unknown History rectal suppository levothyroxine 50 mcg tablet 50 mcg PO DAILY 06/28/24 07/29/24 06/28/24 History ondansetron 4 mg disintegrating 4 mg PO Q8H PRN nausea and 06/28/24 07/29/24 Unknown Rx tablet vomiting #10 tabs polyethylene glycol 3350 17 17 g PO DAILY #510 grams 06/28/24 07/29/24 Unknown Rx gram/dose oral powder (Miralax) Allergies Allergy/AdvReac Type Severity Reaction Status Date / Time acetaminophen (From Vicodin) Allergy ALGY-Rash Verified 07/29/24 10:18 hydrochlorothiazide Allergy ALGY-Rash Verified 07/29/24 10:18 hydrocodone (From Vicodin) Allergy ALGY-Rash Verified 07/29/24 10:18 Penicillins Allergy ALGY-Rash Verified 07/29/24 10:18 PFSH Acute PFSH: Social History Smoking and tobacco/nicotine status: never used tobacco/nicotine Vitals/I&O/Wt Last Vital Signs Temp 98.1 F 07/29/24 11:03 Pulse 93 07/29/24 15:00 Resp 16 07/29/24 11:03 BP 108/52 07/29/24 15:00 Pulse Ox 95 07/29/24 15:00 O2 Del Method Room Air 07/29/24 15:00 07/29/24 07/29/24 07/29/24 06:59 14:59 22:59 Intake Total 2632.93 / 2632.93 Balance 2632.93 / 2632.93 Weight last 48 hrs Weight 54.431 kg Physical Exam Narrative: General: Patient is currently in pain, particularly over the left abdomen. Clinically dehydrated HEENT: PERRLA, pupils bilaterally equal and reactive, pallors not present Chest: Normal vesicular breath sounds, no added sounds, equal good air entry bilaterally CVS: S1-S2 regular, no murmurs, no tachycardia, no gallops, no rubs Abdomen: Soft, tender to palpation over the suprapubic area in the left colon. Neuro: No focal deficits, no facial deformity, AO x3, power 5/5 in all limbs Extremities: No edema clubbing or cyanosis Data 07/29/24 10:54 07/29/24 10:54 Micro: Microbiology 07/29/24 11:34 Blood Culture - Preliminary Blood SPECIMEN COLLECTED 07/29/24 11:34 Blood Culture - Preliminary Blood SPECIMEN COLLECTED Other data: Radiology Impressions Abdomen/Pelvis CT 07/29/24 12:07 IMPRESSION: 1. Nonspecific severe infectious or inflammatory mid to distal colitis, as described above. Findings compatible with diarrheal state. 2. Moderate proximal colonic distension with constipation 3. Fractures involving the L1 vertebral body superior endplate, as described above. Recommend MRI imaging. 4. Left lower lobe lung nodules measuring up to 3 mm. See Fleischner guideline recommendations below. 5. Left nonobstructing nephrolithiasis. 6. Chronic findings. Degenerative and postsurgical changes are demonstrated, as described above. For patients at low risk (minimal or absent history of smoking and of other known risk factors), no routine follow-up is indicated. For patients at high risk (history of smoking or of other known risk factors), consider optional CT Chest at 12 months. (Reference: [place]) References: Elishojono H, et al. Guidelines for Management of Incidental Pulmonary Nodules Detected on CT Images: From the Fleischner Society 2017. Radiology. 2017;284(1):228-243. ADDENDUM: 07/29/24 1914 Addendum: This report contains findings that may be critical to patient care. Additional clinical history provided. Increasing lactate levels. Ischemic colitis is included in the differential diagnosis. The exam findings were discussed by me with Dr. Gilmore on 07/29/2024 1:47 PM CDT. The findings were acknowledged and understood. Chest X-Ray 07/29/24 12:34 IMPRESSION: 1. No evidence for an acute cardiopulmonary process. 2. Degenerative and postsurgical changes are demonstrated, as described above. Laboratory Results WBC 10.66 10^3/uL (3.29-11.43) 07/29/24 10:54 RBC 4.41 10^6/uL (3.85-5.65) 07/29/24 10:54 Hgb 11.70 g/dL (11.27-16.99) 07/29/24 10:54 Hct 37.0 % (36-47) 07/29/24 10:54 MCV 83.9 fl (85-98) L 07/29/24 10:54 MCH 26.5 pg (27-33) L 07/29/24 10:54 MCHC 31.6 g/dL (30-55) 07/29/24 10:54 RDW 15.3 % (12.1-15.1) H 07/29/24 10:54 Plt Count 670 10^3/cmm (157-399) H 07/29/24 10:54 MPV 9.2 fL (7.4-10.4) 07/29/24 10:54 Neut % (Auto) 87.9 % 07/29/24 10:54 Lymph % (Auto) 6.9 % 07/29/24 10:54 Pitkin % (Auto) 4.0 % 07/29/24 10:54 Eos % (Auto) 0.3 % 07/29/24 10:54 Baso % (Auto) 0.1 % 07/29/24 10:54 Neut # (Auto) 9.37 10^3/uL (1.8-7.7) H 07/29/24 10:54 Lymph # (Auto) 0.7 10^3/uL (0.8-4.8) L 07/29/24 10:54 Pitkin # (Auto) 0.4 10^3/uL (0.2-0.9) 07/29/24 10:54 Eos # (Auto) 0.0 10^3/uL (0.0-0.8) 07/29/24 10:54 Baso # (Auto) 0.0 10^3/uL (0.0-0.1) 07/29/24 10:54 Nucleated RBC % (auto) 0 % 07/29/24 10:54 Nucleated RBCs # 0.0 /100WBC 07/29/24 10:54 Sodium 136 mmol/L (136-145) 07/29/24 10:54 Potassium 4.4 mmol/L (3.5-5.1) 07/29/24 10:54 Chloride 90 mmol/L (98-107) L 07/29/24 10:54 Carbon Dioxide 23 mmol/L (22-29) 07/29/24 10:54 Anion Gap 27.4 (5-19) H 07/29/24 10:54 BUN 23 mg/dL (8-23) 07/29/24 10:54 Creatinine 0.7 mg/dL (0.5-0.9) 07/29/24 10:54 GFR Calculation 85.1 mL/min (90-130) L 07/29/24 10:54 Glucose 87 mg/dL (65-115) 07/29/24 10:54 Calculated Osmolality 285 mOsm/kg (285-295) 07/29/24 10:54 Lactic Acid 5.8 mmol/L (0.5-2.2) H* 07/29/24 10:54 Lactic Acid (Sepsis) 2.1 mmol/L (0.5-2.2) 07/29/24 13:56 Calcium 8.4 mg/dL (8.5-10.5) L 07/29/24 10:54 Magnesium 1.8 mg/dL (1.7-2.3) 07/29/24 10:54 Total Bilirubin 0.6 mg/dL (0.15-1.2) 07/29/24 10:54 AST 58 U/L (0-32) H 07/29/24 10:54 ALT 37 U/L (0-33) H 07/29/24 10:54 Alkaline Phosphatase 104 U/L (35-105) 07/29/24 10:54 Total Protein 6.2 g/dL (6.6-8.7) L 07/29/24 10:54 Albumin 2.4 g/dL (3.5-5.2) L 07/29/24 10:54 Globulin 3.8 g/dL (1.3-4.6) 07/29/24 10:54 Urine Color Dark yellow (Yellow) A 07/29/24 11:55 Urine Appearance Cloudy (CLEAR) A 07/29/24 11:55 Urine pH 5 (5-7) 07/29/24 11:55 Ur Specific [place] 1.025 (1.005-1.030) 07/29/24 11:55 Urine Protein 1+ (Negative) H 07/29/24 11:55 Urine Glucose (UA) Norm (Normal) 07/29/24 11:55 Urine Ketones 3+ (Negative) H 07/29/24 11:55 Urine Blood Neg (Negative) 07/29/24 11:55 Urine Nitrate Positive (Negative) A 07/29/24 11:55 Urine Bilirubin 1+ (Negative) H 07/29/24 11:55 Urine Urobilinogen 4 mg/dL (Negative) H 07/29/24 11:55 Ur Leukocyte Esterase 1+ (Negative) H 07/29/24 11:55 Urine RBC 3-5 /hpf (0-2) 07/29/24 11:55 Urine WBC 5-10 /hpf (0-5) H 07/29/24 11:55 Ur Squamous Epith Cells 6-10 /hpf (0-5) 07/29/24 11:55 Calcium Oxalate Crystal 0-4 /hpf H 07/29/24 11:55 Amorphous Sediment Not Reportable 07/29/24 11:55 Urine Bacteria 1+ /hpf (NONE) H 07/29/24 11:55 Hyaline Casts 25-40 /lpf H 07/29/24 11:55 Coarse Granular Casts 0-4 /lpf H 07/29/24 11:55 Urine Mucus Trace /hpf 07/29/24 11:55 A&P Assessment and plan (1) Colitis: (2) Dehydration: (3) Acute cystitis: Plan 63-year-old lady with recent history as described above presenting to the hospital with worsening pain over the abdomen, now also with diarrheal stools and intermittent blood mixed with stools over the last [address] scan reviewed currently and also from 1 month ago. Noted to have a long segment of colitis ranging from sigmoid colon to the rectum. Differentials at this time are broad and currently include infectious versus inflammatory etiology Findings were discussed with the [facility] rad radiologist who opined that ischemic colitis is less likely possibility. She had elevated lactate upon arrival which has serially trended down with IV fluid resuscitation. Fever this was removed likely related to dehydration. No obvious vascular abnormalities were noted on CT abdomen and pelvis with contrast today. Per discussion with radiology as CTA is unlikely to add to the yield at this present time. With concern for possible ischemic colitis, ER physician was requested to discuss case with GI at [place]. The case was discussed and per GI no acute intervention was indicated from a vascular standpoint. Recommended to obtain fecal calprotectin, stool cultures for further assessment. Stool cultures have been ordered from the emergency room Stool ova and parasites additionally ordered. Unlikely giardiasis given that patient has had a 10-day course of metronidazole without any significant improvement. Possibility of C. difficile not excluded at this point. Stat C. difficile PCR has been ordered. While this test is waiting to be collected start empiric oral vancomycin 125 mg p.o. 4 times daily Patient has recently failed treatment with 10 days of ciprofloxacin and metronidazole. Potentially ESBL organisms may be contributing. Start meropenem empirically on this current admission and assess for response UA positive for leukocyte esterase nitrate and greater to 50-100 WBCs. Tenderness to palpation over the suprapubic region additionally. Meropenem above to cover for acute cystitis additionally. 1 C. difficile testing results, should result positive will aim to discontinue antibiotics Alternate differentials include inflammatory bowel disease, microscopic colitis, however patient would eventually need a colonoscopy with biopsy to establish this diagnosis. As needed hydromorphone for pain management, add Bentyl for spasms. Continue home medications including metoprolol. check HIV serology PDMP PDMP Reviewed: Not Reviewed Attestations Medical Necessity Statement*: > 2 midnight stay is currently anticipated Coding Level of Care Code Acute Code for Chg Fwd Diagnoses Colitis K52.9 Dehydration E86.0 Acute cystitis N30.00 Hematuria presence: without hematuria
[2024-07-29] MEDS: vancomycin 125 mg Capsule PO ×2 (16:42→21:32)
[2024-07-29] MEDS: dicyclomine 10 mg Capsule PO (16:42)
[2024-07-29] MEDS: dextrose 5%-sod chloride 0.9% 1,000 ML 75 ML IV (16:45)
[2024-07-29] MEDS: prochlorperazine 10 mg/2 mL Inj IVP (21:32)
--- OUTSIDE RECORDS SUMMARY | 2024-07-29 22:53 | XMS_ITS | Encounter Summary ---
Author Organization [facility] Address [address] [place] [address] Care Team Providers Care Director Of Curriculum And Instruction Name Role Phone Unavailable Primary Care Provider Unavailabl e Encounter Details Date Type Department Care Team (Late st Contact Info) Description 09/26/2003 Outpatient Historical [facility] [address] [place] [phone] Imtiaz Davidson MD [address] [place], [place] [address] [place] [address] Social History Tobacco Use Types Packs/Day Years Used Date Smoking Tobacco: Never Assessed Comments Unknown Sex and Gender Information Value Date Recorded Sex Assigned at Not on file 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
--- OUTSIDE RECORDS SUMMARY | 2024-07-29 22:53 | XMS_ITS | Encounter Summary ---
Author Organization [employer] Address 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
--- OUTSIDE RECORDS SUMMARY | 2024-07-29 22:53 | XMS_ITS | Encounter Summary ---
Author Organization [facility] Address [address] [place] [address] Care Team Providers Care Shovel Oiler Name Role Phone Unavailable Primary Care Provider Unavailabl e Encounter Details Date Type Department Care Team (Latest Contact Info) Description 07/11/2003 Outpatient Historical [facility] [address] [place] [phone] Imtiaz Davidson MD [address] [place] [address] ABDOMINAL PAIN UNSPEC SITE (Primary Dx) Social History Tobacco Use Types Packs/Day Years Used Date Smoking Tobacco: Never Assessed Comments Unknown Sex and Gender Information Value Date Recorded Sex Assigned at Not on file Legal Sex Female 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
--- OUTSIDE RECORDS SUMMARY | 2024-07-29 22:53 | XMS_ITS | Encounter Summary ---
Author Organization [employer] Address 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
--- OUTSIDE RECORDS SUMMARY | 2024-07-29 22:53 | XMS_ITS | Encounter Summary ---
Author Organization [facility] Address [address] [place] [address] Care Team Providers Care Plumbing And Heating Contractor Name Role Phone Unavailable Primary Care Provider Unavailabl e Encounter Details Date Type Department Care Team (Late st Contact Info) Description 01/07/2004 Outpatient Historical [facility] [address] [place] [phone] Imtiaz Davidson MD [address] [place], [place] [address] [address] Social History Tobacco Use Types Packs/Day Years Used Date Smoking Tobacco: Never Assessed Comments Unknown Sex and Gender Information Value Date Recorded Sex Assigned at Not on file 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
--- OUTSIDE RECORDS SUMMARY | 2024-07-29 22:53 | XMS_ITS | Encounter Summary ---
Author Organization [facility] Address [address] [place] [address] Care Team Providers Care Lodging House Keeper Name Role Phone Unavailable Primary Care Provider Unavailabl e Encounter Details Date Type Department Care Team (Late st Contact Info) Description 11/21/2002 Inpatient Historical HIS PATIENT IN A BED Obey Torres (Tad)MD [facility] [address] [address] REFLEX SYMPATH DYSTRPHY LOWER LIMB (Primary Dx) Social History Tobacco Use Types Packs/Day Years Used Date Smoking Tobacco: Never Assessed Comments Unknown Sex and Gender Information Value Date Recorded Sex Assigned at Not on file Legal Sex Female 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
--- OUTSIDE RECORDS SUMMARY | 2024-07-29 22:53 | XMS_ITS | Encounter Summary ---
Author Organization [employer] Address 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
--- OUTSIDE RECORDS SUMMARY | 2024-07-29 22:53 | XMS_ITS | Encounter Summary ---
Author Organization [employer] Address [address] [place] [address] Care Team Providers Care Process Designer Name Role Phone Unavailable Primary Care Provider Unavailabl e Encounter Details Date Type Department Care Team (Late st Contact Info) Description 11/02/2002 Outpatient Historical HIS SURGERY CTR Obey Torres (Tad)MD [facility] [address] [address] Social History Tobacco Use Types Packs/Day Years Used Date Smoking Tobacco: Never Assessed Comments Unknown Sex and Gender Information Value Date Recorded Sex Assigned at Not on file Legal Sex Female 4:55 AM MANAGER ART Gender Identity Not on file Sexual Orientation Not on file documented as of this encounter Plan of Treatment Not on file documented as of this encounter Visit Diagnoses Not on filedocumented in this encounter
--- OUTSIDE RECORDS SUMMARY | 2024-07-29 22:53 | XMS_ITS | Encounter Summary ---
Author Organization [facility] Address [address] [place] [address] Care Team Providers Care Convention Manager Name Role Phone Unavailable Primary Care Provider Unavailabl e Encounter Details Date Type Department Care Team (Late st Contact Info) Description 07/11/2003 Outpatient Historical [facility] [address] [place] [phone] Imtiaz Davidson MD [address] [place], [place] [address] [address] Social History Tobacco Use Types Packs/Day Years Used Date Smoking Tobacco: Never Assessed Comments Unknown Sex and Gender Information Value Date Recorded Sex Assigned at Not on file Legal Sex Female 3:44 AM FIRMWARE DEVELOPER Gender Identity Not on file Sexual Orientation Not on file documented as of this encounter Plan of Treatment Not on file documented as of this encounter Visit Diagnoses Not on filedocumented in this encounter
--- OUTSIDE RECORDS SUMMARY | 2024-07-29 22:53 | XMS_ITS | Encounter Summary ---
Author Organization [facility] Address [address] [place] [address] Care Team Providers Care Superintendent Laundry Name Role Phone Unavailable Primary Care Provider Unavailabl e Encounter Details Date Type Department Care Team (Latest Contact Info) Description 01/07/2004 Outpatient Historical [facility] [address] [place] [phone] Imtiaz Davidson MD [address] [place] [address] ABDOMINAL PAIN UNSPEC SITE (Primary Dx) Social History Tobacco Use Types Packs/Day Years Used Date Smoking Tobacco: Never Assessed Comments Unknown Sex and Gender Information Value Date Recorded Sex Assigned at Not on file Legal Sex Female 3:44 AM CREW CAR DRIVER Gender Identity Not on file Sexual Orientation Not on file documented as of this encounter Plan of Treatment Not on file documented as of this encounter Visit Diagnoses Diagnosis Abdominal pain, unspecified site- Primary documented in this encounter
--- OUTSIDE RECORDS SUMMARY | 2024-07-29 22:53 | XMS_ITS | Encounter Summary ---
Author Organization [employer] Address [address] [place] [address] Care Team Providers Care Disease Management Nurse Name Role Phone Unavailable Primary Care Provider Unavailabl e Encounter Details Date Type Department Care Team (Late st Contact Info) Description 08/17/1999 Outpatient Historical HIS CHRONIC PAIN Obey Rachel (Tad), [facility] [address] [address] Pain in limb (Primary Dx) Social History Tobacco Use Types Packs/Day Years Used Date Smoking Tobacco: Never Assessed Comments Unknown Sex and Gender Information Value Date Recorded Sex Assigned at Not on file Legal Sex Female 4:55 AM HYDROPRESS OPERATOR Gender Identity Not on file Sexual Orientation Not on file documented as of this encounter Plan of Treatment Not on file documented as of this encounter Visit Diagnoses Diagnosis Pain in limb- Primary documented in this encounter
--- OUTSIDE RECORDS SUMMARY | 2024-07-29 22:53 | XMS_ITS | Encounter Summary ---
Author Organization [facility] Address [address] [place] [address] Care Team Providers Care Ecosystem Ecology Professor Name Role Phone Unavailable Primary Care Provider Unavailabl e Encounter Details Date Type Department Care Team (Latest Contact Info) Description 09/26/2003 Outpatient Historical [facility] [address] [place] [phone] Imtiaz Davidson MD [address] [place] [address] REFLEX SYMPATH DYSTRPHY LOWER LIMB (Primary Dx); LOC PRIM OSTEOARTH-HAND Social History Tobacco Use Types Packs/Day Years Used Date Smoking Tobacco: Never Assessed Comments Unknown Sex and Gender Information Value Date Recorded Sex Assigned at Not on file Legal Sex Female 3:44 AM FLAKE MILLER WHEAT AND OATS Gender Identity Not on file Sexual Orientation Not on file documented as of this encounter Plan of Treatment Not on file documented as of this encounter Visit Diagnoses Diagnosis 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
--- OUTSIDE RECORDS SUMMARY | 2024-07-29 22:53 | XMS_ITS | Encounter Summary ---
Author Organization [employer] Address [address] [place] [address] Care Team Providers Care Assembly Line Brazer Name Role Phone Unavailable Primary Care Provider Unavailabl e Encounter Details Date Type Department Care Team (Late st Contact Info) Description 08/31/1999 Outpatient Historical HIS [facility] DEPT Obey Torres (Tad)MD [facility] [address] [address] Lumbago (Primary Dx) Social History Tobacco Use Types Packs/Day Years Used Date Smoking Tobacco: Never Assessed Comments Unknown Sex and Gender Information Value Date Recorded Sex Assigned at Not on file Legal Sex Female 4:55 AM CONSULTING PSYCHIATRIST Gender Identity Not on file Sexual Orientation Not on file documented as of this encounter Plan of Treatment Not on file documented as of this encounter Visit Diagnoses Diagnosis Lumbago- Primary documented in this encounter
--- OUTSIDE RECORDS SUMMARY | 2024-07-29 22:53 | XMS_ITS | Encounter Summary ---
Author Organization [facility] Address [address] [place] [address] Care Team Providers Care Extrusion Manager Name Role Phone Unavailable Primary Care Provider Unavailabl e Encounter Details Date Type Department Care Team (Latest Contact Info) Description 06/29/2003 Outpatient Historical [facility] [address] [place] [phone] Imtiaz Davidson MD [address] [place] [address] ABDOMINAL PAIN UNSPEC SITE (Primary Dx) Social History Tobacco Use Types Packs/Day Years Used Date Smoking Tobacco: Never Assessed Comments Unknown Sex and Gender Information Value Date Recorded Sex Assigned at Not on file Legal Sex Female 3:44 AM OVEN LOADER Gender Identity Not on file Sexual Orientation Not on file documented as of this encounter Plan of Treatment Not on file documented as of this encounter Visit Diagnoses Diagnosis Abdominal pain, unspecified site- Primary documented in this encounter
--- OUTSIDE RECORDS SUMMARY | 2024-07-29 22:53 | XMS_ITS | Encounter Summary ---
Author Organization [employer] Address [address] [place] [address] Care Team Providers Care Loading Machine Operator Name Role Phone Unavailable Primary Care Provider Unavailabl e Encounter Details Date Type Department Care Team (Late st Contact Info) Description 11/04/1999 Outpatient Historical [facility] Obey Torres (Tad)MD [facility] [address] [address] Pain in limb (Primary Dx) Social History Tobacco Use Types Packs/Day Years Used Date Smoking Tobacco: Never Assessed Comments Unknown Sex and Gender Information Value Date Recorded Sex Assigned at Not on file Legal Sex Female 4:55 AM RESEARCH LIBRARIAN Gender Identity Not on file Sexual Orientation Not on file documented as of this encounter Plan of Treatment Not on file documented as of this encounter Visit Diagnoses Diagnosis Pain in limb- Primary documented in this encounter
--- OUTSIDE RECORDS SUMMARY | 2024-07-29 22:53 | XMS_ITS | Encounter Summary ---
Author Organization [employer] Address [address] [place] [address] Care Team Providers Care Gate Agent Name Role Phone Unavailable Primary Care Provider Unavailabl e Encounter Details Date Type Department Care Team (Late st Contact Info) Description 01/11/2003 Outpatient Historical HIS MRI DEPT Obey Torres (Tad)MD [facility] [address] [address] HEADACHE (Primary Dx) Social History Tobacco Use Types Packs/Day Years Used Date Smoking Tobacco: Never Assessed Comments Unknown Sex and Gender Information Value Date Recorded Sex Assigned at Not on file Legal Sex Female 4:55 AM OUTDOOR EDUCATION TEACHER Gender Identity Not on file Sexual Orientation Not on file documented as of this encounter Plan of Treatment Not on file documented as of this encounter Visit Diagnoses Diagnosis Headache(784.0)- Primary Headache documented in this encounter
--- OUTSIDE RECORDS SUMMARY | 2024-07-29 22:53 | XMS_ITS | Encounter Summary ---
Author Organization [employer] Address [address] [place] [address] Care Team Providers Care Tin Stacker Name Role Phone Unavailable Primary Care Provider Unavailabl e Encounter Details Date Type Department Care Team (Late st Contact Info) Description 09/09/1999 Outpatient Historical HIS CHRONIC PAIN Obey Rachel (Tad), [facility] [address] [address] Pain in limb (Primary Dx) Social History Tobacco Use Types Packs/Day Years Used Date Smoking Tobacco: Never Assessed Comments Unknown Sex and Gender Information Value Date Recorded Sex Assigned at Not on file Legal Sex Female 4:55 AM HEARING AID ASSISTANT Gender Identity Not on file Sexual Orientation Not on file documented as of this encounter Plan of Treatment Not on file documented as of this encounter Visit Diagnoses Diagnosis Pain in limb- Primary documented in this encounter
--- OUTSIDE RECORDS SUMMARY | 2024-07-29 22:53 | XMS_ITS | Clinical Summary ---
Author Organization [facility] Address [address] [facility] Attn: [place] [address] Care Team Providers Care Chemistry Specialist Name Role Phone Unavailable Primary Care Provider Unavailabl e Social History Tobacco Use Types Packs/Day Years Used Date Smoking Tobacco: Never Assessed Comments Unknown Sex and Gender Information Value Date Recorded Sex Assigned at Not on file Legal Sex Female 3:44 AM RECYCLING OPERATOR Gender Identity Not on file Sexual Orientation Not on file Plan of Treatment Health Maintenance Due Date Last Done Comments DTAP/TDAP/TD VACCINES (1 - Tdap) 1981 HPV/Cotest (21-29) 08/20/1983 CERVICAL CANCER SCREENING 1992 HPV/Cotest (30-65) 1992 PAP SMEAR 1992 BREAST CANCER SCREENING 2002 COLORECTAL SCREENING 08/20/2007 Colorectal Cancer Screening 08/20/2007 FIT-DNA Q 3 years 08/20/2007 FIT/FOBT Q 1 year 08/20/2007 Flex Sig/CT Colonography Q 5 years 08/20/2007 ZOSTER VACCINE (1 of 2) 2012 INFLUENZA VACCINE (#1) 2023 RSV VACCINE (60+ or ) (1 - 1-dose 75+ series) 2037
--- OUTSIDE RECORDS SUMMARY | 2024-07-29 22:53 | XMS_ITS | Encounter Summary ---
Author Organization [employer] Address [address] [place] [address] Care Team Providers Care Repairer Typewriter Name Role Phone Unavailable Primary Care Provider Unavailabl e Encounter Details Date Type Department Care Team (Late st Contact Info) Description 04/27/1999 Outpatient Historical HIS CHRONIC PAIN Obey Rachel (Tad), [facility] [address] [address] Pain in limb (Primary Dx) Social History Tobacco Use Types Packs/Day Years Used Date Smoking Tobacco: Never Assessed Comments Unknown Sex and Gender Information Value Date Recorded Sex Assigned at Not on file Legal Sex Female 4:55 AM DIRECTOR OF EXHIBIT DEVELOPMENT Gender Identity Not on file Sexual Orientation Not on file documented as of this encounter Plan of Treatment Not on file documented as of this encounter Visit Diagnoses Diagnosis Pain in limb- Primary documented in this encounter
--- OUTSIDE RECORDS SUMMARY | 2024-07-29 22:53 | XMS_ITS | Encounter Summary ---
Author Organization [employer] Address [address] [place] [address] Care Team Providers Care Senior Data Mining Analyst Name Role Phone Unavailable Primary Care Provider Unavailabl e Encounter Details Date Type Department Care Team (Late st Contact Info) Description 05/29/1999 Outpatient Historical HIS CHRONIC PAIN Obey Rachel (Tad), [facility] [address] [address] Social History Tobacco Use Types Packs/Day Years Used Date Smoking Tobacco: Never Assessed Comments Unknown Sex and Gender Information Value Date Recorded Sex Assigned at Not on file Legal Sex Female 4:55 AM MOBILITY ENGINEER Gender Identity Not on file Sexual Orientation Not on file documented as of this encounter Plan of Treatment Not on file documented as of this encounter Visit Diagnoses Not on filedocumented in this encounter
--- OUTSIDE RECORDS SUMMARY | 2024-07-29 22:53 | XMS_ITS | Encounter Summary ---
Author Organization [facility] Address [address] [place] [address] Care Team Providers Care Buzzle Buffer Name Role Phone Unavailable Primary Care Provider Unavailabl e Encounter Details Date Type Department Care Team (Latest Contact Info) Description 05/29/2003 Outpatient Historical [facility] [address] [place] [phone] Imtiaz Davidson MD [address] [place] [address] CONTUSION OF FOOT (Primary Dx) Social History Tobacco Use Types Packs/Day Years Used Date Smoking Tobacco: Never Assessed Comments Unknown Sex and Gender Information Value Date Recorded Sex Assigned at Not on file Legal Sex Female 3:44 AM CHILD CARE TEAM LEAD Gender Identity Not on file Sexual Orientation Not on file documented as of this encounter Plan of Treatment Not on file documented as of this encounter Visit Diagnoses Diagnosis Contusion of foot- Primary documented in this encounter
--- OUTSIDE RECORDS SUMMARY | 2024-07-29 22:53 | XMS_ITS | Clinical Summary ---
Author Organization [facility] Address [address] [place]: [place] [address] Care Team Providers Care Play Writer Name Role Phone Unavailable Primary Care Provider Unavailabl e Social History Tobacco Use Types Packs/Day Years Used Date Smoking Tobacco: Never Assessed Comments Unknown Sex and Gender Information Value Date Recorded Sex Assigned at Not on file Legal Sex Female 4:55 AM FACILITIES CLERK Gender Identity Not on file Sexual Orientation [...]
--- OUTSIDE RECORDS SUMMARY | 2024-07-29 22:53 | XMS_ITS | Encounter Summary ---
Author Organization [facility] Address [address] [place] [address] Care Team Providers Care Coin Machine Servicer Repairer Name Role Phone Unavailable Primary Care Provider Unavailabl e Encounter Details Date Type Department Care Team (Late st Contact Info) Description 02/19/1998 Outpatient Historical [facility] Social History Tobacco Use Types Packs/Day Years Used Date Smoking Tobacco: Never Assessed Comments Unknown Sex and Gender Information Value Date Recorded Sex Assigned at Not on file Legal Sex Female 3:44 AM PAI GOW DEALER Gender Identity Not on file Sexual Orientation Not on file documented as of this encounter Plan of Treatment Not on file documented as of this encounter Visit Diagnoses Not on filedocumented in this encounter
--- OUTSIDE RECORDS SUMMARY | 2024-07-29 22:54 | XMS_ITS | Patient Health Record ---
Author Organization [facility] Address [address] [place] [address] Care Team Providers Care Test Driver Name Role Phone Mago GUEVARA, Adrianne Primary Care Provider Ish Morrissey Unavailable [phone] Allergies Allergen (clinical drug ingredient) Drug/Non Drug Allergy documented on EMR Reaction Allergy Type Onset Date Status codeine Codeine Unknown Drug Allergy Active Penicillin Unknown Drug Allergy Active Reason For Referral No Information Medications Medication SIG (Take, Route, Frequency, Duration) Notes Start Date End Date Status GaviLAX Active traZODone HCl 50 MG 1 tablet at bedtime as needed Orally Once a day Active Levothyroxine Sodium 50 MCG 1 tablet in the morning on an empty stomach Orally Once a day Active buPROPion HCl Not-Ta reddy Methadone HCl 10 MG 1 tablet Orally Once a day Active amLODIPine Benzoate Active Metoprolol Succinate 50 MG 1 capsule Ora lly Once a day Active buPROPion HCl Active Morphine Sulfate 30 MG 1 tablet as neede d Orally every 4 hrs Active Fluoxetine Active NexIUM 20 MG 1 capsule Orally twi ce a day Active Problems Problem Type SNOMED Code ICD Code Onset Dates Problem Status W/U Status Risk Notes Problem 437119683609751 Primary osteoarthritis, right shoulder (M19.011) Active confirmed Problem [id number] Primary osteoarthritis of right shoulder (M19.011) Active confirmed Vital Signs Heart Rate 82 /min 01/27/2024 Oximetry 96 % 01/27/2024 Blood pressure diastolic 68 mm Hg 01/27/2024 Weight-kg 69.2 kg 08/22/2023 Blood pressure systolic 122 mm Hg 01/27/2024 Weight 152.56 lbs 08/22/2023 Encounters Encounter Location Date Provider Diagnosis On License Of [facility] [address] [place] [address] 08/22/2023 Ish Leigh Left shoulder pain, unspecified chronicity M25.512 On License Of [facility] [address] [place] [address] 01/27/2024 Ish Leigh Primary osteoarthrit is of right shoulder M19.011 Assessments Encounter Date Diagnosis (ICD Code) Assessment Notes Treatment Notes Treatment Clinical Notes Section Notes 08/22/2023 Left shoulder pain, unspecified chronicity (ICD-10 - M25.512) I see no evidenc e of specific internal derangement within the left shoulder. She has a strong rotator cuff and no suggestion of loosening. She is doing much better.She is a bit more active. I recommended yearly follow-up. I will see her back on an as-needed basis. 01/27/2024 Primary osteoarthritis of right shoulder (ICD-10 - M19.011) Amena did wel l with the last corticosteroid injection. She had over 6 months of improvement. This certainly would be reasonable to do again. Plan Of Treatment Pending Test Test Name Order Date X-RAY EXAM OF [id number] 08/22/2023 Insurance Providers Payer Name Payer Address Payer Phone Subscriber Number Group Number Insured Name Patient Relationship to Insured Coverage Start Date Coverage End Date [employer] Medicare Replacement [address] [address] [place] [address] [phone] [id number] Amena Gimenez Self - patient is the insured [place] Medicare [address] [place] [phone] Amena Gimenez Self - patient is the insured Medications Administered Medication Instructions Date of Administration Dosage Notes BUPivacaine HCl 07/04/2023 10 mL RIght Len[facility] Joint BUPivacaine HCl 01/27/2024 2 mL Right [facility] DEPO-Medrol 07/04/2023 1 mL Right shoulde r joint DEPO-Medrol 01/27/2024 Right Shoulde r Joint Lidocaine 07/04/2023 2 mL Right Shoulder joint Lidocaine 01/27/2024 2 mL Right shoulder Joint Medical (General) History Medical History History ICD Code measles mumps Chicken Pox Pneumonia Arthritis anemia bladder infections migraine headaches High Blood Pressure Low Blood Pressure hemorrhoids bronchitis Surgical History Surgery Date(Month/Year) left shoulder 06/2022 left knee 08/1997 spinal cord surgery 10/1999 Hospitalization History Reason Date(Month/Year) see surgical
--- OUTSIDE RECORDS SUMMARY | 2024-07-29 22:54 | XMS_ITS | Encounter Summary ---
Author Organization [facility] Address [address] [place] [address] Care Team Providers Care Space Operations Officer Name Role Phone Unavailable Primary Care Provider Unavailabl e Encounter Details Date Type Department Care Team (Late st Contact Info) Description 11/27/1997 Outpatient Historical [facility] Fred[address] [place] [address] Social History Tobacco Use Types Packs/Day Years Used Date Smoking Tobacco: Never Assessed Comments Unknown Sex and Gender Information Value Date Recorded Sex Assigned at Not on file Legal Sex Female 3:44 AM EDUCATION DEAN Gender Identity Not on file Sexual Orientation Not on file documented as of this encounter Plan of Treatment Not on file documented as of this encounter Visit Diagnoses Not on filedocumented in this encounter
--- OUTSIDE RECORDS SUMMARY | 2024-07-29 22:54 | XMS_ITS | Encounter Summary ---
Author Organization [facility] Address [address] [place] [address] Care Team Providers Care Mva Reactor Operator Head Name Role Phone Unavailable Primary Care Provider Unavailabl e Encounter Details Date Type Department Care Team (Late st Contact Info) Description 12/12/1997 Outpatient Historical [facility] Occupational [facility] Fredi [address] [place] [address] Social History Tobacco Use Types Packs/Day Years Used Date Smoking Tobacco: Never Assessed Comments Unknown Sex and Gender Information Value Date Recorded Sex Assigned at Not on file Legal Sex Female 3:44 AM NEW ACCOUNTS BANKING REPRESENTATIVE Gender Identity Not on file Sexual Orientation Not on file documented as of this encounter Plan of Treatment Not on file documented as of this encounter Visit Diagnoses Not on filedocumented in this encounter
--- OUTSIDE RECORDS SUMMARY | 2024-07-29 22:54 | XMS_ITS | Encounter Summary ---
Author Organization [facility] Address [address] [place] [address] Care Team Providers Care Ore Washer Name Role Phone Unavailable Primary Care Provider Unavailabl e Encounter Details Date Type Department Care Team (Late st Contact Info) Description 01/22/1998 Outpatient Historical HIS [facility] Social History Tobacco Use Types Packs/Day Years Used Date Smoking Tobacco: Never Assessed Comments Unknown Sex and Gender Information Value Date Recorded Sex Assigned at Not on file Legal Sex Female 3:44 AM PARCEL POST TRUCK DRIVER Gender Identity Not on file Sexual Orientation Not on file documented as of this encounter Plan of Treatment Not on file documented as of this encounter Visit Diagnoses Not on filedocumented in this encounter
--- OUTSIDE RECORDS SUMMARY | 2024-07-29 22:54 | XMS_ITS | Encounter Summary ---
Author Organization [employer] Address [address] [place] [address] Care Team Providers Care Engine Room Helper Name Role Phone Unavailable Primary Care Provider Unavailabl e Encounter Details Date Type Department Care Team (Late st Contact Info) Description 10/21/1999 Outpatient Historical HIS CHRONIC PAIN Obey Rachel (Tad), [facility] [address] [address] Pain in limb (Primary Dx) Social History Tobacco Use Types Packs/Day Years Used Date Smoking Tobacco: Never Assessed Comments Unknown Sex and Gender Information Value Date Recorded Sex Assigned at Not on file Legal Sex Female 4:55 AM HELICOPTER DISPATCHER Gender Identity Not on file Sexual Orientation Not on file documented as of this encounter Plan of Treatment Not on file documented as of this encounter Visit Diagnoses Diagnosis Pain in limb- Primary documented in this encounter
--- OUTSIDE RECORDS SUMMARY | 2024-07-29 22:54 | XMS_ITS | Encounter Summary ---
Author Organization [facility] Address [address] [place] [address] Care Team Providers Care Real Estate Director Name Role Phone Unavailable Primary Care Provider Unavailabl e Encounter Details Date Type Department Care Team (Late st Contact Info) Description 10/18/1997 Outpatient Historical HIS [facility] Social History Tobacco Use Types Packs/Day Years Used Date Smoking Tobacco: Never Assessed Comments Unknown Sex and Gender Information Value Date Recorded Sex Assigned at Not on file Legal Sex Female 3:44 AM FOOD SAFETY COORDINATOR Gender Identity Not on file Sexual Orientation Not on file documented as of this encounter Plan of Treatment Not on file documented as of this encounter Visit Diagnoses Not on filedocumented in this encounter
--- OUTSIDE RECORDS SUMMARY | 2024-07-29 22:54 | XMS_ITS | Encounter Summary ---
Author Organization [employer] Address [address] [place] [address] Care Team Providers Care Mysql Developer Name Role Phone Unavailable Primary Care Provider Unavailabl e Encounter Details Date Type Department Care Team (Late st Contact Info) Description 10/19/1999 Outpatient Historical HIS CHRONIC PAIN Obey Rachel (Tad), [facility] [address] [address] Pain in limb (Primary Dx) Social History Tobacco Use Types Packs/Day Years Used Date Smoking Tobacco: Never Assessed Comments Unknown Sex and Gender Information Value Date Recorded Sex Assigned at Not on file Legal Sex Female 4:55 AM PHOTOGRAPHER MODEL Gender Identity Not on file Sexual Orientation Not on file documented as of this encounter Plan of Treatment Not on file documented as of this encounter Visit Diagnoses Diagnosis Pain in limb- Primary documented in this encounter
--- OUTSIDE RECORDS SUMMARY | 2024-07-29 22:54 | XMS_ITS | Encounter Summary ---
Author Organization [facility] Address [address] [place] [address] Care Team Providers Care Latex Foam Worker Name Role Phone Unavailable Primary Care Provider Unavailabl e Encounter Details Date Type Department Care Team (Late st Contact Info) Description 01/07/[address] [facility] Social History Tobacco Use Types Packs/Day Years Used Date Smoking Tobacco: Never Assessed Comments Unknown Sex and Gender Information Value Date Recorded Sex Assigned at Not on file Legal Sex Female 3:44 AM CARTON MARKER MACHINE Gender Identity Not on file Sexual Orientation Not on file documented as of this encounter Plan of Treatment Not on file documented as of this encounter Visit Diagnoses Not on filedocumented in this encounter
--- OUTSIDE RECORDS SUMMARY | 2024-07-29 22:54 | XMS_ITS | Encounter Summary ---
Author Organization [facility] Address [address] [place] [address] Care Team Providers Care Striper Machine Name Role Phone Unavailable Primary Care Provider Unavailabl e Encounter Details Date Type Department Care Team (Late st Contact Info) Description 09/04/1997 Outpatient Historical HIS [facility] Social History Tobacco Use Types Packs/Day Years Used Date Smoking Tobacco: Never Assessed Comments Unknown Sex and Gender Information Value Date Recorded Sex Assigned at Not on file Legal Sex Female 3:44 AM SHELLS INSPECTOR Gender Identity Not on file Sexual Orientation Not on file documented as of this encounter Plan of Treatment Not on file documented as of this encounter Visit Diagnoses Not on filedocumented in this encounter
--- OUTSIDE RECORDS SUMMARY | 2024-07-29 22:54 | XMS_ITS | Encounter Summary ---
Author Organization [facility] Address [address] [place] [address] Care Team Providers Care Ornamental Ironworking Supervisor Name Role Phone Unavailable Primary Care Provider Unavailabl e Encounter Details Date Type Department Care Team (Late st Contact Info) Description 09/20/1997 Outpatient Historical [facility] Social History Tobacco Use Types Packs/Day Years Used Date Smoking Tobacco: Never Assessed Comments Unknown Sex and Gender Information Value Date Recorded Sex Assigned at Not on file Legal Sex Female 3:44 AM SOCIAL SCIENCES LECTURER Gender Identity Not on file Sexual Orientation Not on file documented as of this encounter Plan of Treatment Not on file documented as of this encounter Visit Diagnoses Not on filedocumented in this encounter
--- OUTSIDE RECORDS SUMMARY | 2024-07-29 22:54 | XMS_ITS | Encounter Summary ---
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
--- OUTSIDE RECORDS SUMMARY | 2024-07-29 22:54 | XMS_ITS | Encounter Summary ---
Author Organization [employer] Address 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
[2024-07-30 01:48] LABS: HIV 1 & 2 Antibody Non-Reactive (Non-Reactiv); HIV 1 & 2 Antigen Non-Reactive (Non-Reactiv)
[2024-07-30 03:54] VITALS: BP 109/66; PULSE 99; RESP 17; TEMP 36.9; O2SAT 96
[2024-07-30] MEDS: vancomycin 125 mg Capsule PO ×2 (05:02→09:22)
[2024-07-30] MEDS: ondansetron 2 mg/ML SDV 2 mL 4 MG IVP ×4 (05:02→22:33)
[2024-07-30] MEDS: HYDROmorphone 0.5 MG/0.5 ML INJ 1 MG IVP ×3 (05:02→20:49)
[2024-07-30] MEDS: dextrose 5%-sod chloride 0.9% 1,000 ML 75 ML IV ×2 (05:08→16:55)
[2024-07-30 08:00] VITALS: BP 101/58; PULSE 94; RESP 16; TEMP 37.3; O2SAT 94
[2024-07-30 09:04] LABS: Basophils # 0.1 10^3/uL (0.0-0.1); Basophils % 0.8 %; Eosinophils % 0.1 %; Hematocrit 26.8 % (36-47); Lymphocytes # 0.5 10^3/uL (0.8-4.8); Lymphocytes % 6.2 %; Mean Corpuscular HGB Conc 31.3 g/dL (30-55); Mean Corpuscular Hemoglobin 26.6 pg (27-33); Mean Corpuscular Volume 84.8 fl (85-98); Monocytes # 0.5 10^3/uL (0.2-0.9); Monocytes % 6.5 %; Neutrophils # 6.82 10^3/uL (1.8-7.7); Neutrophils % 85.6 %; Nucleated Red Blood Cells % 0 %; Platelet Count 418 10^3/cmm (157-399); Red Blood Count 3.16 10^6/uL (3.85-5.65); Red Cell Distribution Width 15.3 % (12.1-15.1); White Blood Count 7.96 10^3/uL (3.29-11.43)
[2024-07-30] MEDS: levothyroxine 50 mcg Tablet PO (09:22)
[2024-07-30] MEDS: pantoprazole DR 40 mg Tablet PO (09:22)
[2024-07-30] MEDS: fluoxetine 10 mg Capsule PO (09:22)
[2024-07-30] MEDS: metoprolol succinate ER (24 HR) 50 mg Tablet PO (09:22)
[2024-07-30 09:24] LABS: Alanine Aminotransferase 27 U/L (0-33); Albumin Level 1.6 g/dL (3.5-5.2); Alkaline Phosphatase 70 U/L (35-105); Aspartate Amino Transferase 20 U/L (0-32); Blood Urea Nitrogen 17 mg/dL (8-23); Calcium 7.1 mg/dL (8.5-10.5); Carbon Dioxide 25 mmol/L (22-29); Chloride 101 mmol/L (98-107); Creatinine Clr Calc Pharmacy 131.9414; Globulin 2.7 g/dL (1.3-4.6); Glomerular Filtration Rate 162.3 mL/min (90-130); Glucose 114 mg/dL (65-115); Osmolality Calculated 280 mOsm/kg (285-295); Sodium 134 mmol/L (136-145); Total Bilirubin 0.2 mg/dL (0.15-1.2); Total Protein 4.3 g/dL (6.6-8.7)
--- NOTE | 2024-07-30 10:20 | PC.CHAP ---
Pastoral Care Encounter/Spiritual Assessment Type of Contact [] Declined watershed coordinator visit [] Patient/Family/Request visit [] Outpatient visit [] Follow-up visit [] Physician referral [] Code/Alert [x] Routine visit [] Staff referral [] Actively dying [] Patient sleeping [] Family support [] [] Out of room [] Palliative care [] [] Receiving care in room [] Pre-surgical visit [] Trauma [] Long length of stay [] ICU visit [] Other: Relational/Emotional Strength [] Patient feels connected with others/family/visitors/staff [] Distress [] Loneliness/isolation [] Abandonment Spirituality of Patient [x] Person of Georgette [] Attends Mandaeism of their Georgette [x] Believes in Prayer [] Reads Bible or Rastafarian materials [] There are Spiritual issues to be addressed Supervisor Char House Interventions [x] Prayer [x] Active listening [] Non-anxious presence [] Spiritual/emotional support [] Crisis/trauma care [] Spiritual counseling [] Bereavement support [] Provided bereavement packet [x] Provided Bible/devotional materials [] Provided toy/stuffed animal, coloring book to patient or family member [] Provided Communion [] Anointing/[place] [] Salvation [x] Completed spiritual assessment [] Other: Impact on Illness or Injury [] Angry [] Fearful [] Anxious [] Often cries [] Exhaustion [] Unable to work [] Unable to attend protestant [] Unable to walk/stand [] Unable to read [] Unable to drive [] Unable to eat/drink [] Unable to sleep [] Unable to be with family [] Patient intubated [] Other: Summary Time spent with patient 5 min
[2024-07-30 11:09] VITALS: BP 105/62; PULSE 86; RESP 17; TEMP 37.4; O2SAT 96
[2024-07-30 12:38] LABS: C.Diff PCR (Lab) POSITIVE (Negative)
[2024-07-30 13:19] LABS: Clostridioides Difficile Toxin NEGATIVE (Negative)
--- NOTE | 2024-07-30 13:26 | PM.CONSULT ---
Providers/Reason For Consult Consulting Physician/Specialty*: Dr. Minor general surgery Reason for Consult*: C. difficile colitis Attending Physician: Verna Gilmore MD Primary Care Provider: Adrianne Mercedes MD History of Present Illness History of Present Illness Amena Gimenez is a 63 year old female whom surgery was consulted for C. difficile colitis. Medicine concerned about belly pain. Patient was started on treatment for severe C. difficile colitis infection. Patient is actually now feeling better. Abdomen is benign. Reported some bloody diarrhea earlier. Afebrile. Vital signs stable Medications/Allergies Home Medications ?Medication ?Instructions ?Recorded ?Confirmed ?Last Taken ?Type bupropion HCl 300 mg 24 hr tablet, 300 mg PO QAM 01/15/20 07/30/24 07/29/24 History extended release fluoxetine 10 mg capsule 10 mg PO DAILY 01/15/20 07/30/24 07/29/24 History metoprolol succinate 50 mg 50 mg PO DAILY 01/15/20 07/30/24 07/29/24 History tablet,extended release 24 hr morphine 30 mg immediate release 30 mg PO Q8H 01/15/20 07/30/24 07/30/24 History tablet trazodone 50 mg tablet 25 mg PO BEDTIME PRN Sleep 01/15/20 07/30/24 08/05/22 History amlodipine 10 mg tablet 10 mg PO DAILY 06/28/24 07/30/24 07/29/24 History diclofenac sodium 50 mg 50 mg PO BID PRN pain #14 tabs 06/28/24 07/30/24 Unknown Rx tablet,delayed release glycerin (adult) 1 supp RI DAILY PRN constipation 06/28/24 07/30/24 Unknown Rx #12 ea hydrocortisone acetate 25 mg 25 mg RI BID 06/28/24 07/30/24 Unknown History rectal suppository levothyroxine 50 mcg tablet 50 mcg PO QAM 06/28/24 07/30/24 07/29/24 History ondansetron 4 mg disintegrating 4 mg PO Q8H PRN nausea and 06/28/24 07/30/24 Unknown Rx tablet vomiting #10 tabs polyethylene glycol 3350 17 17 g PO DAILY #510 grams 06/28/24 07/30/24 07/29/24 Rx gram/dose oral powder (Miralax) methadone 10 mg tablet See Rx Instructions .Route .COMPLEX 05/19/25 05/19/25 05/19/25 History Allergies Allergy/AdvReac Type Severity Reaction Status Date / Time acetaminophen (From Vicodin) Allergy ALGY-Rash Verified 07/29/24 10:18 hydrochlorothiazide Allergy ALGY-Rash Verified 07/29/24 10:18 hydrocodone (From Vicodin) Allergy ALGY-Rash Verified 07/29/24 10:18 Penicillins Allergy ALGY-Rash Verified 07/29/24 10:18 Current Medications Generic Name Dose Route Start Last Admin Trade Name Freq PRN Reason Stop Dose Admin Dicyclomine HCl 10 mg 07/29/24 15:24 07/29/24 16:42 Dicyclomine 10 Mg Capsule PO 10 mg Q4H PRN Administration SPASMS Fluoxetine HCl 10 mg 07/30/24 09:00 07/30/24 09:22 Fluoxetine 10 Mg Capsule PO 10 mg DAILY GIA Administration Hydromorphone HCl 1 mg 07/29/24 18:29 07/30/24 11:33 Hydromorphone 0.5 Mg/0.5 Ml Inj IVP 1 mg Q6H PRN Administration PAIN Dextrose/Sodium Chloride 1,000 mls @ 75 mls/hr 07/29/24 16:04 07/30/24 05:08 Dextrose 5%-Sod Chloride 0.9% IV 75 mls/hr .[id number] GIA Administration Levothyroxine Sodium 50 mcg 07/30/24 09:00 07/30/24 09:22 Levothyroxine 50 Mcg Tablet PO 50 mcg DAILY GIA Administration Metoprolol Succinate 50 mg 07/30/24 09:00 07/30/24 09:22 Metoprolol Succinate Er (24 Hr) 50 Mg Tablet PO 50 mg DAILY GIA Administration Ondansetron HCl 4 mg 07/29/24 23:00 07/30/24 11:33 Ondansetron 2 Mg/Ml Sdv 2 Ml IVP 4 mg Q6H GIA Administration Pantoprazole Sodium 40 mg 07/30/24 09:00 07/30/24 09:[address] 40 Mg Tablet PO 40 mg DAILY GIA Administration PFSH Acute PFSH: Social History Smoking and tobacco/nicotine status: never used tobacco/nicotine Vitals/I&O/Wt Last Vital Signs Temp 99.4 F 07/30/24 11:09 Pulse 86 07/30/24 11:09 Resp 17 07/30/24 11:09 BP 105/62 07/30/24 11:09 Pulse Ox 96 07/30/24 11:09 O2 Del Method Room Air 07/30/24 11:09 07/29/24 07/30/24 07/30/24 22:59 06:59 14:59 Intake Total 0 / 2632.93 928.75 / 3561.68 Balance 0 / 2632.93 928.75 / 3561.68 Weight last 48 hrs Weight 131 lb Weight 131 lb Weight 120 lb Physical Exam Narrative: Chest: Unlabored breathing room air. No lymphadenopathy. Heart: Regular rate and rhythm. Abdomen: Soft, nontender, nondistended. No masses or lymphadenopathy. Data 07/30/24 08:42 07/30/24 08:42 Micro: Microbiology 07/29/24 11:34 Blood Culture - Preliminary Blood NEGATIVE TO DATE 07/29/24 11:34 Blood Culture - Preliminary Blood NEGATIVE TO DATE 07/29/24 09:40 Stool Lactoferrin - Final Stool 07/29/24 11:55 Urine Culture - Preliminary Urine,Clean Catch A&P Assessment and plan (1) Colitis: Plan 63-year-old female whom surgery was consulted for C. difficile colitis. Responding to medical management. Abdomen is benign. Will follow closely. At this point no indication for surgery. PDMP PDMP Reviewed: Not Reviewed Coding Level of Care Code 48094 Diagnoses Colitis K52.9
--- NOTE | 2024-07-30 13:29 | P.PN_ITS ---
Subjective 2 Subjective: Patient C. difficile PCR returned positive today. She has had a few episodes of bloody diarrhea this morning. Medications: Reviewed: Yes Vitals/I&O/Wt Last Vital Signs Temp 99.4 F 07/30/24 11:09 Pulse 86 07/30/24 11:09 Resp 17 07/30/24 11:09 BP 105/62 07/30/24 11:09 Pulse Ox 96 07/30/24 11:09 O2 Del Method Room Air 07/30/24 11:09 07/29/24 07/30/24 07/30/24 22:59 06:59 14:59 Intake Total 0 / 2632.93 928.75 / 3561.68 Balance 0 / 2632.93 928.75 / 3561.68 Weight last 48 hrs Weight 59.421 kg Weight 59.421 kg Weight 54.431 kg Physical Exam 2 Narrative: General: No acute distress, AO x3 HEENT: PERRLA, pupils bilaterally equal and reactive, pallors not present Chest: Normal vesicular breath sounds, no added sounds, equal good air entry bilaterally CVS: S1-S2 regular, no murmurs, no tachycardia, no gallops, no rubs Abdomen: Tender to palpation diffusely over the left side extending from left upper quadrant down to left lower quadrant. Tenderness over the suprapubic region additionally. Neuro: No focal deficits, no facial deformity, AO x3, power 5/5 in all limbs Data 07/30/24 08:42 07/30/24 08:42 Micro: Microbiology 07/29/24 11:34 Blood Culture - Preliminary Blood NEGATIVE TO DATE 07/29/24 11:34 Blood Culture - Preliminary Blood NEGATIVE TO DATE 07/29/24 09:40 Stool Lactoferrin - Final Stool 07/29/24 11:55 Urine Culture - Preliminary Urine,Clean Catch A&P Assessment and plan (1) Colitis: (2) Dehydration: (3) Acute cystitis: (4) C. difficile colitis: (5) Pseudomembranous colitis: Plan 63-year-old lady with recent history as described above presenting to the hospital with worsening pain over the abdomen, now also with diarrheal stools and intermittent blood mixed with stools over the last [address] scan reviewed currently and also from 1 month ago. Noted to have a long segment of colitis ranging from sigmoid colon to the rectum. Differentials at this time are broad and currently include infectious versus inflammatory etiology Findings were discussed with the V rad radiologist who opined that ischemic colitis is less likely possibility. She had elevated lactate upon arrival which has serially trended down with IV fluid resuscitation. Fever this was removed likely related to dehydration. No obvious vascular abnormalities were noted on CT abdomen and pelvis with contrast today. Per discussion with radiology as CTA is unlikely to add to the yield at this present time. With concern for possible ischemic colitis, ER physician was requested to discuss case with GI at [facility]. The case was discussed and per GI no acute intervention was indicated from a vascular standpoint. Recommended to obtain fecal calprotectin, stool cultures for further assessment. Stool cultures have been ordered from the emergency room Stool ova and parasites additionally ordered. Unlikely giardiasis given that patient has had a 10-day course of metronidazole without any significant improvement. Possibility of C. difficile not excluded at this point. Stat C. difficile PCR has been ordered. While this test is waiting to be collected start empiric oral vancomycin 125 mg p.o. 4 times daily Patient has recently failed treatment with 10 days of ciprofloxacin and metronidazole. Potentially ESBL organisms may be contributing. Start meropenem empirically on this current admission and assess for response UA positive for leukocyte esterase nitrate and greater to 50-100 WBCs. Tenderness to palpation over the suprapubic region additionally. Meropenem above to cover for acute cystitis additionally. 1 C. difficile testing results, should result positive will aim to discontinue antibiotics Alternate differentials include inflammatory bowel disease, microscopic colitis, however patient would eventually need a colonoscopy with biopsy to establish this diagnosis. As needed hydromorphone for pain management, add Bentyl for spasms. Continue home medications including metoprolol. check HIV serology July 30, 2024. Continues to c/o abdominal pain with tenderness on exam, had loose blood tinged BM today. nausea is slightly better today, would like to try clears today. needed promethazine added overnight. Will add scopolamine patch now. Tender over the left abdomen. patient's provides additional information today. Patient's symptoms started in June this year a few days after she had reveived abx for a dental infection. She presented here to the ER on 06/28/24 and was found to have diffuse left coliltis. She received rx with 10 days of cipro and metronidazole with 5 days of dexamethasone which did not provide any relief in symptoms. She then went to [facility] ER with persisting symptoms where reportedly a CT was done and she was discharged home from ER after a diagnosis of constipation. States they did not receive any abx at this time. C diff PCR + today. Overall clinical picture highly concerning for fulminant C diff, likely pseudomembranous colitis. Patient has several concerning features including elevated lactate, severe dehydration, abdominal tenderness, 20 pound weight loss and albumin level of only 1.6, bloody stool with anemia, all of which correlate with severe disease even in the absence of leukocytosis and elevated cr. She does not have any evidence of ileus at this time. D/c presumptive dose of 125mg oral vancomycin started yesterday. Increase to po vancomycin 500 mg every 6 hrs and add iv metronidazole 500 iv q8h. If unable to tolerate due to vomiting, will add rectal vancomycin. Holding off for now as no evidence of ileus. Surgery consult given abdominal tenderness and concern for peritonitis, blood tinged stools and hb drop to 8.4 today. Noted UA with + LA, some WBcs. Urine cx thus far negative to date. Will cover with empiric ceftriaxone for now , with aim to discontinue systemic abx if urine cx is negative. PDMP PDMP Reviewed: Not Reviewed Attestations 2 Medical Necessity Statement*: fulminant C diff, changes as noted above, need for iv metronidaolze, dehydration needing IVF, surgery consult Coding Level of Care Code Acute Code for Chg Fwd Diagnoses Colitis K52.9 Dehydration E86.0 Acute cystitis N30.00 Hematuria presence: without hematuria C. difficile colitis A04.72 Pseudomembranous colitis A04.72
[2024-07-30] MEDS: vancomycin 125 mg Capsule 500 MG PO ×2 (13:40→18:20)
[2024-07-30] MEDS: cefTRIAXone 1,000 mg SDV 1000 MG IVP (13:40)
[2024-07-30] MEDS: scopolamine 1 mg PATCH 1 PATCH TRANSDERMA (13:40)
[2024-07-30] MEDS: albumin 12.5 GM/250 ML VIAL IV (13:41)
[2024-07-30] MEDS: metroNIDAZOLE IV 500 MG/100 ML PREMIX 100 MG IV ×2 (13:41→20:45)
[2024-07-30] MEDS: oxyCODONE-APAP 5-325 mg Tablet 1 TAB PO ×2 (14:05→18:20)
[2024-07-30 15:29] VITALS: BP 105/60; PULSE 81; RESP 16; TEMP 37; O2SAT 96
[2024-07-30 19:17] VITALS: BP 110/55; PULSE 79; RESP 15; TEMP 36.8; O2SAT 92
[2024-07-30 23:28] VITALS: BP 110/55; PULSE 78; RESP 16; TEMP 37.2; O2SAT 92
[2024-07-31] VITALS (13 sets, daily range): BP systolic 106–124; BP diastolic 51–63; PULSE 67–82; RESP 15–18; TEMP 36.8–37.6; O2SAT 90–96
[2024-07-31] MEDS: vancomycin 125 mg Capsule 500 MG PO ×4 (01:13→17:35)
[2024-07-31 03:06] LABS: Basophils % 0.3 %; Eosinophils # 0.1 10^3/uL (0.0-0.8); Eosinophils % 1.1 %; Hematocrit 23.2 % (36-47); Lymphocytes # 0.7 10^3/uL (0.8-4.8); Lymphocytes % 10.2 %; Mean Corpuscular HGB Conc 31.5 g/dL (30-55); Mean Corpuscular Hemoglobin 26.4 pg (27-33); Mean Corpuscular Volume 83.8 fl (85-98); Mean Platelet Volume 9.3 fL (7.4-10.4); Monocytes # 0.5 10^3/uL (0.2-0.9); Monocytes % 8.1 %; Neutrophils # 5.24 10^3/uL (1.8-7.7); Neutrophils % 78.8 %; Nucleated Red Blood Cells % 0 %; Platelet Count 346 10^3/cmm (157-399); Red Blood Count 2.77 10^6/uL (3.85-5.65); Red Cell Distribution Width 15.6 % (12.1-15.1); White Blood Count 6.65 10^3/uL (3.29-11.43)
[2024-07-31 03:39] LABS: Alanine Aminotransferase 19 U/L (0-33); Albumin Level 1.7 g/dL (3.5-5.2); Alkaline Phosphatase 67 U/L (35-105); Anion Gap 11.5 (5-19); Aspartate Amino Transferase 13 U/L (0-32); Blood Urea Nitrogen 14 mg/dL (8-23); Calcium 7.1 mg/dL (8.5-10.5); Carbon Dioxide 24 mmol/L (22-29); Chloride 103 mmol/L (98-107); Creatinine Clr Calc Pharmacy 131.9414; Globulin 2.6 g/dL (1.3-4.6); Glomerular Filtration Rate 162.3 mL/min (90-130); Glucose 104 mg/dL (65-115); Osmolality Calculated 281 mOsm/kg (285-295); Potassium 3.5 mmol/L (3.5-5.1); Sodium 135 mmol/L (136-145); Total Bilirubin 0.2 mg/dL (0.15-1.2); Total Protein 4.3 g/dL (6.6-8.7)
[2024-07-31 03:43] LABS: Slide Review Slide Review Perform
[2024-07-31] MEDS: ondansetron 2 mg/ML SDV 2 mL 4 MG IVP ×3 (05:20→17:35)
[2024-07-31] MEDS: metroNIDAZOLE IV 500 MG/100 ML PREMIX 100 MG IV ×2 (05:20→13:34)
[2024-07-31] MEDS: buPROPion XL (24 HR) 300 mg Tablet PO (05:20)
[2024-07-31] MEDS: dextrose 5%-sod chloride 0.9% 1,000 ML 75 ML IV (06:05)
[2024-07-31] MEDS: HYDROmorphone 0.5 MG/0.5 ML INJ 1 MG IVP ×3 (06:11→21:25)
--- NOTE | 2024-07-31 07:06 | P.PN_ITS ---
Subjective 2 Subjective: Increased abdominal tenderness to palpation. Non peritonitic VSS Hgb dropped to 7.3 - persistent hematochezia Vitals/I&O/Wt Last Vital Signs Temp 98.6 F 07/31/24 04:00 Pulse 76 07/31/24 04:00 Resp 15 07/31/24 04:00 BP 106/58 07/31/24 04:00 Pulse Ox 90 07/31/24 04:00 O2 Del Method Room Air 07/31/24 04:00 07/30/24 07/31/24 07/31/24 22:59 06:59 14:59 Intake Total 983.75 / 1333.75 1087.5 / 2421.25 Balance 983.75 / 1333.75 1087.5 / 2421.25 Weight last 48 hrs Weight 135 lb 1.6 oz Weight 131 lb Weight 131 lb Weight 120 lb Physical Exam 2 Narrative: Chest: Unlabored breathing room air. No lymphadenopathy. Heart: Regular rate and rhythm. Abdomen: Soft, tender LLQ, mildly distended. Non peritonitic. No masses or lymphadenopathy. Data 07/31/24 02:50 07/31/24 02:50 Micro: Microbiology 07/29/24 11:34 Blood Culture - Preliminary Blood NEGATIVE TO DATE 07/29/24 11:34 Blood Culture - Preliminary Blood NEGATIVE TO DATE 07/29/24 09:40 Stool Lactoferrin - Final Stool 07/29/24 11:55 Urine Culture - Preliminary Urine,Clean Catch A&P Assessment and plan (1) C. difficile colitis: Plan 63-year-old female with C. difficile colitis. Currently does not meet criteria for surgical intervention. She is more tender and has had to be transfused for hematochezia. I had an extensive discussion with the patient and the hospitalist. Patient will benefit for transfer for evaluation and management of C. difficile colitis by paper machine back tender. They may be able to offer her a fecal transplant, vancomycin enemas, and be better equipped to handle her GI bleed. Patient does not want a colectomy. If she is transferred to higher level of care and eventually does need surgery a colorectal surgeon might be able to offer a diverting loop ileostomy and colonic lavage in order to avoid a colectomy. In the meantime continue with medical treatment of C. difficile colitis. Continue resuscitation with blood. Will follow closely. PDMP PDMP Reviewed: Not Reviewed Attestations 2 Medical Necessity Statement*: N/A Coding Level of Care Code 46565 Diagnoses C. difficile colitis A04.72
--- NOTE | 2024-07-31 08:14 | USCV_ITS ---
Amena Gimenez Age: 63 Gender: F : 1960 Exam Date: 07/31/2024 10:07 Ordering Phys: Trevor Marsh MD Technologist: [place] [facility] [place]: chest sob BP: 134 / 70 HR: 63 Rhythm: Sinus Technical Quality: Adequate MEASUREMENTS (Male / Female) Normal Values 2D ECHO LV Diastolic Diameter PLAX 4.4 cm 4.2 - 5.9 / 3.9 - 5.3 cm IVS Diastolic Thickness 1.2 cm 0.6 - 1.0 / 0.6 - 0.9 cm IVS Systolic Thickness 1.7 cm LVPW Diastolic Thickness 1.3 cm 0.6 - 1.0 / 0.6 - 0.9 cm LVPW Systolic Thickness 1.3 cm LVOT Diameter 2.1 cm LV Ejection Fraction 2D Teich 70.5 % LV Ejection Fraction MOD 4C 62.3 % LV Ejection Fraction MOD 2C 57.6 % LV Ejection Fraction 2C AL 56.7 % LA Diameter 3.2 cm RA Systolic Volume 4C AL 29.8 ml RA Systolic Volume 4C MOD 28.4 ml LA Sys Volume AL 43.8 cm cubed LA Sys Volume Index AL 27.4 cm cubed/m squared Aorta at Sinotubular Diameter 2.6 cm M-MODE LA Ao Ratio MM 1.2 AV Cusp Separation MM 2.0 cm DOPPLER AV Peak Velocity 152.0 cm/s LVOT Peak Velocity 95.0 cm/s AV Area Cont Eq vti 2.8 cm squared AV Area Cont Eq pk 2.1 cm squared MV Peak Velocity 104.0 cm/s MV Area PHT 3.7 cm squared Mitral E to A Ratio 0.9 TV Peak Velocity 291.5 cm/s TR Peak Velocity 305.0 cm/s TR Peak Gradient 37.2 mmHg TV Peak E Velocity 126.0 cm/s PV Peak Velocity 111.0 cm/s FINDINGS Left Ventricle Normal left ventricular size, systolic function and wall thickness, with no regional wall motion abnormalities. Left ventricular ejection fraction is estimated at 60 %. Normal diastolic function. Right Ventricle The right ventricle is normal in size and function. Right Atrium The right atrium is normal in size. Left Atrium The left atrium is normal in size. Mitral Valve Structurally normal mitral valve without significant stenosis or prolapse. There is no mitral regurgitation. Aortic Valve Structurally normal aortic valve without significant sclerosis or stenosis. There is no aortic regurgitation. Tricuspid Valve Structurally normal tricuspid valve without significant stenosis or regurgitation. Pulmonary artery systolic pressure is normal. Pulmonic Valve Structurally normal pulmonic valve without significant stenosis. There is no pulmonic regurgitation. Pericardium Normal pericardium without effusion. Aorta Normal ascending aorta dimension. IVC The inferior vena cava appears normal. CONCLUSIONS Normal left ventricular size, systolic function and wall thickness, with no regional wall motion abnormalities. Left ventricular ejection fraction is estimated at 60 %. Normal diastolic function. There is no pericardial effusion. No significant valve abnormalities. Right atrial pressure is around 5 mm of mercury. Abdirizak Mccarty MD (Electronically Signed) Final Date: 31 Jul 2024 22:05 S
[2024-07-31] MEDS: pantoprazole DR 40 mg Tablet PO (08:23)
[2024-07-31] MEDS: levothyroxine 50 mcg Tablet PO (08:23)
[2024-07-31] MEDS: fluoxetine 10 mg Capsule PO (08:23)
[2024-07-31] MEDS: metoprolol tartrate 25 mg Tablet PO ×2 (08:35→21:25)
[2024-07-31] MEDS: oxyCODONE-APAP 5-325 mg Tablet 1 TAB PO ×2 (08:35→17:58)
[2024-07-31] MEDS: albumin 25 G/100 ML BAG 60 G IV (09:31)
[2024-07-31 09:35] LABS: Erythrocyte Sedimentation Rate 27 mm/hr (0-15)
[2024-07-31 09:48] LABS: Procalcitonin 82.42 ng/mL (0-0.5); Thyroid Stimulating Hormone 2.28 uIU/mL (0.27-4.20)
[2024-07-31 09:53] LABS: Estmated Average Glucose 117; Hemoglobin A1C 5.7 % (4.0-6.0)
[2024-07-31 09:59] LABS: C Reactive Protein 93.2 mg/L (0.0-4.9); Iron 9 ug/dL (37-145); Percent Saturation 15.7 % (20-50); Total Iron Binding Capacity 57 mcg/dl; Unsaturated Iron Binding 48 ug/dL (112-347)
[2024-07-31 10:01] LABS: Vitamin B12 > 2000 pg/mL (232-1245)
--- NOTE | 2024-07-31 10:12 | XRR_ITS ---
PROCEDURE INFORMATION: Exam: XR Abdomen Exam date and time: 07/31/2024 10:47 AM Age: 63 years old Clinical indication: Abdominal pain; Generalized; Prior surgery; Surgery date: 6+ months; Surgery type: Hyst pain pump; Additional info: Possible nick colon TECHNIQUE: Imaging protocol: Radiologic exam of the abdomen. Views: Frontal supine view of the abdomen. 1 View. COMPARISON: CT abdomen pelvis w con* [id number] 07/29/2024 12:41 PM FINDINGS: Tubes, catheters and devices: Unchanged power pack and electrodes. Gastrointestinal tract: Unchanged large amount of gas and stool throughout the colon. Otherwise, unremarkable. Intraperitoneal space: No obvious free air on this radiograph taken with the patient in the supine position. Unchanged surgical clips in the pelvis. Vasculature: Unchanged vascular calcifications. Bones/joints: Nothing acute. No change. XR/XR abdomen 1V* [id number] IMPRESSION: 1. Unchanged large amount of gas and stool throughout the colon. 2. Additional details as above. Unchanged.
--- NOTE | 2024-07-31 13:09 | P.PN_ITS ---
Subjective 2 Subjective: Hospital course, labs appreciated. Seen with spouse at bedside. Patient complaining of pain in bed 8. Has been having multiple bloody bowel movements. Blood pressure today morning slightly soft. Laying comfortably in bed otherwise. Medications: Reviewed: Yes Vitals/I&O/Wt Last Vital Signs Temp 98.8 F 07/31/24 12:07 Pulse 72 07/31/24 12:07 Resp 18 07/31/24 12:07 BP 116/61 07/31/24 12:07 Pulse Ox 96 07/31/24 12:07 O2 Del Method Room Air 07/31/24 08:00 07/30/24 07/31/24 07/31/24 22:59 06:59 14:59 Intake Total 983.75 / 1333.75 1087.5 / 2421.25 280 / 280 Balance 983.75 / 1333.75 1087.5 / 2421.25 280 / 280 Weight last 48 hrs Weight 61.28 kg Weight 59.421 kg Weight 59.421 kg Physical Exam 2 Narrative: General: No acute distress, AO x3, pallor present HEENT: PERRLA, pupils bilaterally equal and reactive Chest: Normal vesicular breath sounds, no added sounds, equal good air entry bilaterally CVS: S1-S2 regular, no murmurs, no tachycardia, no gallops, no rubs Abdomen: Soft, tender in left upper and lower quadrant, bowel sounds sluggish, no organomegaly, Neuro: No focal deficits, no facial deformity, AO x3, power 5/5 in all limbs Data 07/31/24 02:50 07/31/24 02:50 Micro: Microbiology 07/29/24 11:55 Urine Culture - Final Urine,Clean Catch 07/29/24 11:34 Blood Culture - Preliminary Blood NEGATIVE TO DATE 07/29/24 11:34 Blood Culture - Preliminary Blood NEGATIVE TO DATE 07/29/24 09:40 Stool Lactoferrin - Final Stool A&P Assessment and plan (1) C. difficile colitis: Appreciate CT abdomen pelvis. Concerns for significantly dilated colon. Stool for C. difficile positive. Given extensive bloody bowel movements, hypocalcemia, severe low albumin will consider this as severe C. difficile. Surgical team on board for need for possible colectomy. ID consulted. Continue with oral vancomycin 500 mg every 6 hours and IV Flagyl. Will confirm with surgical team if they are okay with rectal vancomycin along with oral vancomycin. If they are agreeable we will start 500 mg rectal vancomycin every 6 hours as well. Check lactate. Check ESR, CRP, procalcitonin. Will likely trend ESR and CRP. Abdominal x-ray. Depending on clinical improvement in next 24 hours can plan for repeat CT abdomen pelvis with contrast. (2) Pseudomembranous colitis: (3) Acute anemia: In setting of bloody diarrhea. Hemoglobin down from 11.7-7.3. Patient hemodynamically slightly unstable developing hypotension today. Transfuse 1 unit of PRBC. Check hemoglobin every 12 hours. Target hemoglobin more than 8 Hernandez time patient is hemodynamically stable. (4) Bloody diarrhea: (5) Acute cystitis: Currently on ceftriaxone. Follow-up urine and blood culture. (6) Severe protein-energy malnutrition: Appreciate severely low albumin to 1.7. Start on IV albumin every 8 hours. (7) Pain medication contract needed: On extensive pain medication as an outpatient with methadone and morphine. Current currently on IV Dilaudid 1 mg every 4 hours as needed. No concerns for withdrawal for now. (8) Chronic constipation: (9) Colitis: Plan On review of the care with surgical team they recommend possible transfer to tertiary center where gastroenterology and colorectal surgery is available. Will discuss with patient regarding their wishes. Continue other chronic home medications. Full code Clear liquid diet SCD for DVT prophylaxis. Protonix for PUD prophylaxis PDMP PDMP Reviewed: Not Reviewed Attestations 2 Medical Necessity Statement*: Requires further hospitalization for management of severe C. difficile colitis with bloody bowel movements and anemia requiring blood transfusion, severe protein energy malnutrition Diagnoses C. difficile colitis A04.72 Pseudomembranous colitis A04.72 Acute anemia D64.9 Bloody diarrhea R19.7 Acute cystitis N30.00 Hematuria presence: without hematuria Severe protein-energy malnutrition E43 Pain medication contract needed Chronic constipation K59.09 Colitis K52.9
[2024-07-31 13:10] LABS: Lactic Sepsis W/Reflex 0.7 mmol/L (0.5-2.2)
[2024-07-31] MEDS: vancomycin 500 MG in sodium chloride 0.9% (100 ml) 100 ML PR (13:33)
[2024-07-31] MEDS: cefTRIAXone 1,000 mg SDV 1000 MG IVP (13:34)
--- NOTE | 2024-07-31 15:05 | PC.NURSE ---
Pt complains of nausea at this time. Requests golden be removed from rectum (inserted and inflated for vancomycin enema). Balloon deflated and golden removed. (Total time in 1.5 hours)
[2024-07-31 15:55] LABS: Hematocrit 26.5 % (36-47)
[2024-07-31] MEDS: metoclopramide 5 mg/mL SDV 2 mL IVP (15:55)
[2024-07-31] MEDS: albumin 25 G/100 ML BAG 100 G IV (17:36)
[2024-07-31] MEDS: vancomycin 500 MG in sodium chloride 0.9% (100 ml) 100 ML 100 MG PR ×2 (17:58→21:25)
--- NOTE | 2024-07-31 18:19 | PC.NURSE ---
Rectal vanc administered per rectum via enema bag. 16 fr. golden then inserted and balloon inflated to hold med in rectum. Pt tolerated well. Pt advised that goal is to hold med in her rectum until 1999 if possible.
[2024-07-31 19:49] LABS: Hematocrit 22.4 % (36-47)
--- NOTE | 2024-07-31 21:57 | PM.CONSULT ---
Providers/Reason For Consult Consulting Physician/Specialty*: Verna Gilmore MD/ Infectious Disease Reason for Consult*: fulminnat C diff Requesting Physician: Trevor Marsh MD Attending Physician: Trevor Marsh MD Primary Care Provider: Adrianne Mercedes MD History of Present Illness History of Present Illness Amena Gimenez is a 63 year old female previously seen by [facility] as hospitalist. Patient is a 63-year-old lady who was admitted to the hospital on July 29, 2024 with worsening abdominal pain and bloody diarrhea. Her symptoms had started approximately 1 month ago after having had an outpatient course of antibiotics for a dental infection. Reportedly a few days afterwards patient developed abdominal pain. She was seen in the emergency room on June 28, 2024 where she was found to have left-sided colitis with CT showing long segment circumferential edema and mucosal enhancement involving the colon beginning at the splenic flexure to the rectum. She was treated with 10 days of oral ciprofloxacin, oral metronidazole and oral dexamethasone at that time. She continued to have persisting symptoms, has had a 20 pound weight loss since onset of symptoms and was brought to the ER by family due to worsening abdominal pain. Reportedly patient was in the emergency room at [facility] a few days earlier where she was diagnosed with abdominal pain being related to constipation and given some laxatives. CT abdomen pelvis performed on July 29, 2024 showed nonspecific severe infectious versus inflammatory mid to distal colitis and moderate proximal colonic distention with constipation. She was started presumptively on oral vancomycin 125 mg every 6 hours due to clinical concern for C. difficile alongside of IV ceftriaxone. Over the next morning her C. difficile PCR returned positive. At this point she was transitioned to treatment with oral vancomycin 500 mg 4 times daily and IV metronidazole 500 mg every 8 hours for fulminant C. difficile.Patient has several concerning features including elevated lactate, severe dehydration, abdominal tenderness, 20 pound weight loss and albumin level of only 1.6, bloody stool with anemia, all of which correlate with severe disease even in the absence of leukocytosis and elevated cr. Surgical service has been consulted due to peritonitis. Review of Systems General: Reports: 10 or more systems reviewed and unremarkable except in HPI and below Const: Denies: fever(s), chills or body aches Eyes: Denies: change in vision, blurry vision or photophobia ENMT: Reports: hoarseness; Denies: throat pain, enlarged tonsils, odynophagia or nasal congestion Card: Denies: chest pain, palpitations, irregular heart rhythm, edema, swelling of feet/ankles, lightheadedness, pre-syncope, dyspnea on exertion or orthopnea Resp: Denies: dyspnea, productive cough, non-productive cough, wheezing, stridor, pain on inspiration, change in phlegm color, hemoptysis or chest congestion GI: Denies: abdominal pain, nausea, vomiting, hematemesis, coffee ground emesis, dysphagia, heartburn, diarrhea, constipation, GI cramping, change in stool character, hematochezia or melena : Denies: flank pain, difficulty voiding, dysuria, urinary frequency, urinary urgency, urinary hesitancy or hematuria Musc: Denies: neck pain, back pain, extremity pain, joint swelling, joint warmth or deformity Neuro: Denies: headache(s), numbness in extremities, weakness in extremities, sensory changes, difficulty walking, frequent falls, dizziness, vertigo, behavioral changes, Slurred speech present or seizure-like activity Psych: Denies: anxiety, depression, suicidal ideation or homicidal ideation Endo: Denies: polyuria, polydipsia, tired all the time, cold intolerance or hot flashes Charbel/Lymph: Denies: easy bruising or easy bleeding Medications/Allergies Home Medications ?Medication ?Instructions ?Recorded ?Confirmed ?Last Taken ?Type bupropion HCl 300 mg 24 hr tablet, 300 mg PO QAM 01/15/20 07/30/24 07/29/24 History extended release fluoxetine 10 mg capsule 10 mg PO DAILY 01/15/20 07/30/24 07/29/24 History metoprolol succinate 50 mg 50 mg PO DAILY 01/15/20 07/30/24 07/29/24 History tablet,extended release 24 hr morphine 30 mg immediate release 30 mg PO Q8H 01/15/20 07/30/24 07/30/24 History tablet trazodone 50 mg tablet 25 mg PO BEDTIME PRN Sleep 01/15/20 07/30/24 08/05/22 History amlodipine 10 mg tablet 10 mg PO DAILY 06/28/24 07/30/24 07/29/24 History diclofenac sodium 50 mg 50 mg PO BID PRN pain #14 tabs 06/28/24 07/30/24 Unknown Rx tablet,delayed release glycerin (adult) [address] DAILY PRN constipation 06/28/24 07/30/24 Unknown Rx #12 ea hydrocortisone acetate [address] BID 06/28/24 07/30/24 Unknown History rectal suppository levothyroxine 50 mcg tablet 50 mcg PO QAM 06/28/24 07/30/24 07/29/24 History ondansetron 4 mg disintegrating 4 mg PO Q8H PRN nausea and 06/28/24 07/30/24 Unknown Rx tablet vomiting #10 tabs polyethylene glycol 3350 17 17 g PO DAILY #510 grams 06/28/24 07/30/24 07/29/24 Rx gram/dose oral powder (Miralax) methadone 10 mg tablet See Rx Instructions .Route .COMPLEX 07/30/24 07/30/24 07/30/24 History gabapentin 300 mg tablet 300 mg PO QAM 07/31/24 07/31/24 Unknown History Allergies Allergy/AdvReac Type Severity Reaction Status Date / Time acetaminophen (From Vicodin) Allergy ALGY-Rash Verified 07/29/24 10:18 hydrochlorothiazide Allergy ALGY-Rash Verified 07/29/24 10:18 hydrocodone (From Vicodin) Allergy ALGY-Rash Verified 07/29/24 10:18 Penicillins Allergy ALGY-Rash Verified 07/29/24 10:18 Current Medications Generic Name Dose Route Start Last Admin Trade Name Freq PRN Reason Stop Dose Admin Bupropion HCl 300 mg 07/31/24 06:00 07/31/24 05:20 Bupropion Xl (24 Hr) 300 Mg Tablet PO 300 mg QA GIA Administration Dicyclomine HCl 10 mg 07/29/24 15:24 07/29/24 16:42 Dicyclomine 10 Mg Capsule PO 10 mg Q4H PRN Administration SPASMS Fluoxetine HCl 10 mg 07/30/24 09:00 07/31/24 08:23 Fluoxetine 10 Mg Capsule PO 10 mg DAILY GIA Administration Hydromorphone HCl 1 mg 07/29/24 18:29 07/31/24 21:25 Hydromorphone 0.5 Mg/0.5 Ml Inj IVP 1 mg Q6H PRN Administration PAIN Dextrose/Sodium Chloride 1,000 mls @ 75 mls/hr 07/29/24 16:04 07/31/24 17:36 Dextrose 5%-Sod Chloride 0.9% IV Infused .[id number] GIA Infusion Metronidazole 500 mg in 100 mls @ 100 mls/hr 07/30/24 13:00 07/31/24 14:36 Flagyl Iv IV Infused Q8H GIA Infusion Protocol Albumin Human 25 g in 100 mls @ 60 mls/hr 07/31/24 09:15 07/31/24 18:37 Albumin IV Infused Q8H GIA Infusion Vancomycin HCl 500 mg/ Sodium 100 mls @ 0 mls/hr 07/31/24 13:00 07/31/24 21:[address] 100 mls/hr QID GIA Administration Protocol As Directed Levothyroxine Sodium 50 mcg 07/30/24 09:00 07/31/24 08:23 Levothyroxine 50 Mcg Tablet PO 50 mcg DAILY GIA Administration Metoclopramide HCl 5 mg 07/30/24 18:30 07/31/24 15:55 Metoclopramide 5 Mg/Ml Sdv 2 Ml IVP 5 mg Q6H PRN Administration NAUSEA AND VOMITING Metoprolol Tartrate 25 mg 07/31/24 09:00 07/31/24 21:25 Metoprolol Tartrate 25 Mg Tablet PO 25 mg BID@0900,2100 GIA Administration Ondansetron HCl 4 mg 07/29/24 23:00 07/31/24 17:35 Ondansetron 2 Mg/Ml Sdv 2 Ml IVP 4 mg Q6H GIA Administration Oxycodone/Acetaminophen 1 tab 07/30/24 13:58 07/31/24 17:58 Oxycodone-Apap 5-325 Mg Tablet PO 1 tab Q4H PRN Administration MODERATE PAIN Pantoprazole Sodium 40 mg 07/30/24 09:00 07/31/24 08:[address] 40 Mg Tablet PO 40 mg DAILY GIA Administration Scopolamine 1 patch 07/30/24 13:30 07/30/24 13:40 Scopolamine 1 Mg Patch TRANSDERMA 1 patch Q3D GIA Administration Vancomycin HCl 500 mg 07/30/24 13:00 07/31/24 17:35 Vancomycin 125 Mg Capsule PO 500 mg Q6H GIA Administration PFSH Acute PFSH: Medical History Restless leg syndrome Closed L1 vertebral fracture Chronic constipation Pain medication contract needed Anxiety Depression Gastroenteritis Hypertension Hypothyroidism Severe protein-energy malnutrition Surgical History Status post replacement of right shoulder joint Status post replacement of left shoulder joint History of colonoscopy History of hysterectomy Social History Smoking and tobacco/nicotine status: never used tobacco/nicotine Vitals/I&O/Wt Last Vital Signs Temp 98.2 F 07/31/24 20:00 Pulse 75 07/31/24 20:00 Resp 16 07/31/24 20:00 BP 112/51 07/31/24 20:00 Pulse Ox 95 07/31/24 20:00 O2 Del Method Room Air 07/31/24 16:00 07/31/24 07/31/24 07/31/24 06:59 14:59 22:59 Intake Total 1087.5 / 2421.25 730 / 730 1320 / 2050 Balance 1087.5 / 2421.25 730 / 730 1320 / 0 Weight last 48 hrs Weight 61.28 kg Weight 59.421 kg Physical Exam Narrative: General: No acute distress, AO x3 HEENT: PERRLA, pupils bilaterally equal and reactive, pallors not present Chest: Normal vesicular breath sounds, no added sounds, equal good air entry bilaterally CVS: S1-S2 regular, no murmurs, no tachycardia, no gallops, no rubs Abdomen: Soft, nontender, no organomegaly, bowel sounds present Neuro: No focal deficits, no facial deformity, AO x3, power 5/5 in all limbs Data 07/31/24 19:31 07/31/24 02:50 Micro: Microbiology 07/29/24 11:55 Urine Culture - Final Urine,Clean Catch A&P Assessment and plan (1) Dehydration: (2) C. difficile colitis: (3) Pseudomembranous colitis: Plan 63-year-old lady with recent history as described above presenting to the hospital with worsening pain over the abdomen, now also with diarrheal stools and intermittent blood mixed with stools over the last [address] scan Noted to have a long segment of colitis ranging from sigmoid colon to the rectum. C. difficile PCR eventually returning positive from the stool. Overall clinical picture highly concerning for fulminant C diff, likely pseudomembranous colitis. Patient has several concerning features including elevated lactate on admission, severe dehydration, abdominal tenderness, 20 pound weight loss and albumin level of only 1.6, bloody stool with anemia, all of which correlate with severe disease even in the absence of leukocytosis and elevated cr. Continue po vancomycin 500 mg every 6 hrs and add iv metronidazole 500 iv q8h. patient has had a hemoglobin dropped to 7.2 today and continues to complain of abdominal pain. On exam today continues to have diffuse tenderness on the left side of the abdomen. Recommend to add rectal vancomycin 500 mg every 6 hours if placement of rectal tube and vancomycin enema not contraindicated per surgery. Noted UA with + LA, some WBcs. Urine cx thus far negative to date. Discontinue ceftriaxone. If continues to have pyuria in the future, possibility of colovesical fistula would need to be considered. Closely monitor for improvement with addition of rectal vancomycin and continued IV and oral treatment. If patient fails to improve, may need surgical intervention Will continue to follow PDMP PDMP Reviewed: Not Reviewed Coding Level of Care Code Acute Code for Chg Fwd High MDM includes number and complexity of problems actively addressed during encounter, amount and/or complexity of data reviewed/ordered and described risk of complication, morbidity or mortality of management as documented Diagnoses Dehydration E86.0 C. difficile colitis A04.72 Pseudomembranous colitis A04.72
--- NOTE | 2024-07-31 22:27 | PC.NURSE ---
EMS here to transfer to [facility]
--- NOTE | 2024-07-31 22:29 | PC.NURSE ---
Imaging sent to the [facility] per [facility].
== END 2024-07-31 22:28 | disposition short-term general hospital (02) | DRG 371 ==
LOC: ER 14:55 → ER IP 15:51 → MEDSURG 22:51
PROVIDERS: Admitting Provider Student in an Organized Health Care Education/Training Program; Emergency Provider General Practice; PCP Family Medicine; Visit Provider Student in an Organized Health Care Education/Training Program
DX: A04.72 Enterocolitis due to Clostridium difficile, not specified as recurrent (principal); E43 Unspecified severe protein-calorie malnutrition; K65.9 Peritonitis, unspecified; N30.00 Acute cystitis without hematuria; E87.20 Acidosis, unspecified; K59.09 Other constipation; E86.0 Dehydration; G25.81 Restless legs syndrome; F41.9 Anxiety disorder, unspecified; F32.A Depression, unspecified; E03.9 Hypothyroidism, unspecified; Z96.612 Presence of left artificial shoulder joint; Z96.611 Presence of right artificial shoulder joint; K64.9 Unspecified hemorrhoids; R00.0 Tachycardia, unspecified; I95.9 Hypotension, unspecified; D75.839 Thrombocytosis, unspecified; D64.9 Anemia, unspecified; Z68.23 Body mass index [BMI] 23.0-23.9, adult; Z96.82 Presence of neurostimulator
CPT/HCPCS: 36415; 71045; 74018; 74177; 80053; 81001; 82607; 83036; 83540; 83550; 83605; 83630; 83735; 84145; 84443; 85014; 85018; 85025; 85651; 86140; 86850; 86900; 86920; 87040; 87086; 87324; 87493; 87806; 93005; 93306; 96374; 96375; 96376; 99285; J0692; J0696; J0780; J1171; J2405; J2765; J3370; J3490; J7030; J7042; J7120; J9999; P9040; P9045; P9046

== ENCOUNTER 2024-08-15 11:44 | Oncology outpatient (recurring) (ONCR) | payer MEDICARE, SELFPAY ==
[2024-08-15] VITALS (11 sets, daily range): BP systolic 78–100; BP diastolic 47–58; PULSE 18–101; RESP 16–18; TEMP 36.6–37.4; O2SAT 92–97
[2024-08-15] MEDS: sodium chloride 0.9% 250 mL Bag IV (13:16)
[2024-08-15] MEDS: diphenhydrAMINE 25 mg Capsule PO (13:16)
[2024-08-15] MEDS: acetaminophen 500 mg Tablet 1000 MG PO (13:16)
[2024-08-15 14:03] LABS: Hematocrit 20.7 % (36-47)
== END 2024-09-10 23:59 | disposition home or self-care (01) ==
PROVIDERS: Nurse Practitioner Family; PCP Family Medicine; Visit Provider Internal Medicine
DX: D64.9 Anemia, unspecified (principal); Z79.899 Other long term (current) drug therapy
CPT/HCPCS: 36430; 85014; 85018; 86850; 86900; 86920; J7050; J9999; P9016